=== PATIENT | female | born 1955 | race Caucasian/White ===

== ENCOUNTER 2019-10-04 11:20 | Outpatient (CLI) | payer MEDICARE, SELFPAY ==
[2019-10-04 11:50] LABS: Basophils Percent Auto 0.5 % (0.2-1.2); Eosinophils Absolute Auto 0.1 K/mm3 (0-0.3); Eosinophils Percent Auto 1.3 % (0-4.4); Hematocrit 36.1 % (37.0-47.0); Hemoglobin 12.1 g/dL (12.0-15.0); Immature Granulocyte Absolute 0.01 K/mm3 (0.00-0.031); Immature Granulocyte Percent A 0.2 % (0-0.5); Immature Platelet Fraction Pct 2.7 % (0.9-11.2); Lymphocytes Absolute Auto 2.73 K/mm3 (0.9-3.2); Lymphocytes Percent Auto 45.7 % (18.3-44.2); Mean Corpuscular HGB Conc 33.5 g/dl (32-36); Mean Corpuscular Hemoglobin 31.4 pg (26-34); Mean Corpuscular Volume 93.8 fl (80-100); Mean Platelet Volume 9.9 fl (7.4-10.4); Monocytes Absolute Auto 0.4 K/mm3 (0.1-0.6); Monocytes Percent Auto 6.5 % (2.6-8.5); Neutrophils Absolute Auto 2.7 K/mm3 (1.3-6.7); Neutrophils Percent Auto 45.8 % (45.5-73.1); Platelet Count Result 123 k/mm3 (150-375); Red Blood Count 3.85 M/mm3 (4.2-5.4); Red Cell Distribution Width 14.7 % (11.5-14.5)
[2019-10-04 12:26] LABS: Hemoglobin A1C 8.9 % (<5.7)
[2019-10-04 12:36] LABS: Total Triiodothyronine (T3) 1.19 NG/ML (0.97-1.69)
[2019-10-04 12:41] LABS: Alanine Aminotransferase 54 U/L (4-35); Albumin Level 4.1 g/dL (3.5-5.1); Alkaline Phosphatase 155 U/L (38-126); Amylase 56 U/L (30-110); Aspartate Amino Transferase 76 U/L (14-36); Bilirubin,Total 0.4 mg/dL (0.2-1.3); Blood Urea Nitrogen 11 mg/dL (7-17); Calcium 8.5 mg/dL (8.4-10.2); Carbon Dioxide 21 mmol/L (22-30); Chloride 104 mmol/L (98-107); Estimated Glomerular Filt Rate > 60; Glucose 455 mg/dL (65-105); Lipase 95 U/L (23-300); Sodium 136 mmol/L (137-145)
--- NOTE | 2019-10-04 13:02 | PC.NURSE ---
Called to outpatient draw station at 1200 today. Claims Coordinator reports that a patient has repeatedly fallen asleep while having her blood work drawn. I spoke with the patient. Lili Acosta (V#[id number]) Lili reports she drove herself to the hospital but agrees she is too sleepy to drive home. She reports she has restless leg syndrome and had run out her medication, causing her to be all night. She denies ingestion of any medications or alcohol. She awakens when her name is called but falls back to sleep. She oriented x 4, able to move all extremities. Her speech is clear and appropriate. She is agreeable for me to contact her , Travis Acosta @ to come to the hospital and drive her home. Travis Acosta contacted and agreed to come to hospital to drive his home.
[2019-10-04 13:49] LABS: Free T4 Free Thyroxine 0.89 ng/mL (0.78-2.19)
[2019-10-04 15:27] LABS: Vitamin D 25 Hydroxy < 12.8 ng/mL
== END 2019-10-04 11:21 | disposition home or self-care (01) ==
PROVIDERS: PCP Family Medicine; Visit Provider Nurse Practitioner Family
DX: R11.2 Nausea with vomiting, unspecified (principal); R19.7 Diarrhea, unspecified; R53.83 Other fatigue; E11.40 Type 2 diabetes mellitus with diabetic neuropathy, unspecified; E55.9 Vitamin D deficiency, unspecified; Z13.0 Encounter for screening for diseases of the blood and blood-forming organs and certain disorders involving the immune mechanism; Z13.6 Encounter for screening for cardiovascular disorders; Z13.29 Encounter for screening for other suspected endocrine disorder
CPT/HCPCS: 36415; 80053; 82150; 82306; 83036; 83690; 84439; 84443; 84480; 85025; 85055

== ENCOUNTER 2020-06-19 08:47 | Emergency (ER) | payer MEDICARE, SELFPAY ==
--- NOTE | ~2020-06-19 | XR_ITS ---
EXAMINATION: XR ankle LT min 3V EXAM DATE: 06/19/2020 11:21 INDICATION: pain, fell 2 months ago, generalized left ankle pain since then. TECHNIQUE: Left ankle frontal, lateral and oblique projections obtained and reviewed. Comparison is m melissa to prior examination from 12/17/2017. FINDINGS: The left ankle mortise appears intact. There is a fibular plate with supporting screws, intact. There is mild left ankle osteoarthritis, either primary or posttraumatic. No talar defect. Th ere are no bony erosions identified. There are no acute fractures identified. Small calcaneal spurs. IMPRESSION: 1. Mild left ankle osteoarthritis. 2. Intact fibular plate Reviewed, dictated and finalized at location A. EM SALES CONSULTANT
--- NOTE | ~2020-06-19 | XR_ITS ---
EXAMINATION: XR knee LT min 4V EXAM DATE: 06/19/2020 11:21 INDICATION: pain, fall X2 months ago, generalized left knee pain since then. TECHNIQUE: Left knee frontal, crosstable lateral, orthogonal oblique projections for interpretation. Comparison is made to prior examination from 03/19/2019. FINDINGS: No evidence osteochondral defect or joint body in the left knee joint. There are no pleur al effusions. There are no acute fractures or dislocations identified. There is no subcutaneous ga s. The soft tissue is unremarkable. There are no radiopaque foreign bodies. IMPRESSION: 1. Unremarkable left knee exam. Reviewed, dictated and finalized at location A. ORK CONTROL SUPERVISOR
--- NOTE | ~2020-06-19 | XR_ITS ---
EXAMINATION: XR hip LT min 3V w AP pelvis EXAM DATE: 06/19/2020 11:22 INDICATION: Fall X2 months, pelvic, left hip pain since then. TECHNIQUE: Left hip frontal, crosstable lateral and 'frog-leg' projections for interpretation. Fronta l projection pelvis. Comparison is made to prior examination from 09/03/2014. FINDINGS: Smooth left hip femoral head contour, no radiographic evidence of avascular necrosis. Ther e is mild left hip primary osteoarthritis. There are no acute pelvic or left hip fractures or disloca tions identified. There is no subcutaneous gas. The soft tissue is unremarkable. There are no rad iopaque foreign bodies. IMPRESSION: Mild left hip osteoarthritis. Reviewed, dictated and finalized at location A. ATIONS INSPECTOR
--- NOTE | ~2020-06-19 | XR_ITS ---
EXAMINATION: XR sacrum coccyx min 2V EXAM DATE: 06/19/2020 11:22 INDICATION: Sacrococcygeal pain. TECHNIQUE: Frontal, inlet, lateral projections of the sacrum and coccyx. There are no prior studies for comparison. FINDINGS: Sacrum, sacroiliac joints, sacral arcuate lines are intact. There is mild to moderate bila teral sacroiliac joint primary osteoarthritis. Pelvic calcification which could be a fibroid. There a re no acute fractures identified. IMPRESSION: 1. No acute sacrococcygeal findings. Reviewed, dictated and finalized at location A. OPONE CHARGER
--- NOTE | ~2020-06-19 | US_ITS ---
EXAMINATION: US venous doppler [facility] EXAM DATE: 06/19/2020 11:01 INDICATION: left leg pain, swelling left leg pain . TECHNIQUE: Multiple grayscale, color flow and Doppler images of the left lower extremity deep venous system were obtained and reviewed. Comparison is made to prior examination from 10/17/2018. FINDINGS: The left common femoral, femoral and profunda veins demonstrate normal color flow, respirat ory variation, augmentation and compressibility. Compressibility, color flow confirmed within the le ft popliteal, posterior tibial, and greater saphenous veins. Peroneal not well visualized. IMPRESSION: 1. No left lower extremity deep venous thrombosis. Reviewed, dictated and finalized at location A. MAKER
[2020-06-19 08:53] VITALS: BP 164/78; PULSE 95; RESP 15; TEMP 37; O2SAT 96
--- NOTE | 2020-06-19 08:55 | PC.NURSE ---
Pt. c/o restless leg syndrome and MD office not renewing prescription in time as presenting complaint at Intake, once in room added pain from a fall months ago as her c/o; pt. stated as she was walking from w/c to stretcher I cannot walk
[2020-06-19 10:33] VITALS: BP 161/71; PULSE 97; RESP 12; O2SAT 98
--- NOTE | 2020-06-19 10:41 | ED.EXTPRO ---
HPI - Extremity Problem General Chief complaint: Extremity Problem,Nontraumatic Stated complaint: restless leg syndrome/needs refill of med Time Seen by Provider: 06/19/20 10:16 Source: patient Mode of arrival: ambulatory Limitations: no limitations History of Present Illness HPI Narrative: This is a 64-year-old female that presents the emergency department for medication refill. Reports she has been out of her ropinirole for her restless leg syndrome. Reports she is unable to sit still. Reports pain especially in the left leg. Reports she also had a fall a couple of months ago which has worsened her left leg pain. Also reports pain in her sacrum/coccyx x-ray to the fall. Denies loss of consciousness. She did not see anybody after this accident. Reports she has an appointment to see her primary on Monday, but is out of her ropinirole in the meantime. Also reports swelling in the left leg which has been ongoing for months. Denies fever, decreased range of motion, or numbness. Related Data Home Medications Medication Instructions Recorded Confirmed clonazepam 1 mg PO DAILY 05/23/19 dulaglutide [Trulicity] 1.5 mg SUBCUT WEEKLY 05/23/19 glipizide 2.5 mg PO BID 05/23/19 metformin 500 mg PO BID 05/23/19 quetiapine [Seroquel XR] 400 mg PO HS 05/23/19 ropinirole [Requip] 0.25 mg PO BID 05/23/19 Allergies Allergy/AdvReac Type Severity Reaction Status Date / Time duloxetine Allergy Intermediate Hives Verified 05/23/19 13:08 aspirin Allergy Unknown DUE TO Verified 05/23/19 12:28 ASTHMA Review of Systems Review of Systems: Narrative: CONSTITUTIONAL: Denies fever SKIN: Denies rash MUSCULOSKELETAL: Reports back pain, joint pain, and myalgia. NEUROLOGIC: Denies numbness, or weakness. All systems reviewed & are unremarkable except as noted in HPI and below PMFSH Past Medical History Medical History (Updated 06/19/20 @ 12:13 by Connie Johnston PA-C) History of anxiety History of asthma History of coronary artery disease History of depression History of diabetes mellitus History of hypertension History of hypothyroidism Surgical History Surgical History (Updated 05/23/19 @ 16:07 by Connie Johnston PA-C) History of cardiac catheterization History of cholecystectomy History of hysterectomy History of inguinal hernia repair Family History Family History (Updated 09/02/16 @ 23:56 by DOCTOR UNKNOWN) Father Family history of premature coronary heart disease, Onset Age: 69 Patient's father is Mother Family history of malignant neoplasm of breast in first degree relative Social History Social History Second hand tobacco smoke exposure: Yes Alcohol intake: never Gender identity (if verbalized by the patient): Female Exam Narrative: Exam Narrative: GENERAL: Disheveled, well-nourished, and in no acute distress. HEAD: Normocephalic, atraumatic. EYES: PERRLA and EOMI. ENT: Nares clear, no rhinorrhea or epistaxis. Mucous membranes moist. Oropharynx without tonsillar hypertrophy exudate or other lesions. Bilateral TMs pearly carranza non-bulging NECK: Supple. No adenopathy or masses. No midline spinal tenderness CHEST: Clear to auscultation. No respiratory distress. No wheezes rales or rhonchi HEART: Regular rate and rhythm. No murmur heard. Normal peripheral pulses. BACK: No midline spinal tenderness EXTREMITIES: Normal range of motion. Mild edema with very mild redness to the left lower extremity. No erythema or warmth. Normal DP pulses. Strength is equal in the bilateral upper and lower extremities (5/5) SKIN: Warm, dry, no rash. NEURO: No focal deficits. Alert and oriented x3. Cranial nerves II through XII grossly intact PSYCH: Normal mood and affect Course Vital Signs Vital signs: Vital Signs Temperature 98.6 F 06/19/20 08:53 Pulse Rate 95 06/19/20 08:53 Respiratory Rate 15 06/19/20 08:53 Blood Pressure 164/78 H 06/19/20 08:53 Pulse Oximetry 96
[2020-06-19] MEDS: rOPINIRole HCL 1 MG TABLET PO (11:21)
[2020-06-19] MEDS: ACETAMINOPHEN 500 MG TABLET 1000 MG PO (11:21)
--- NOTE | 2020-06-19 11:24 | PC.NURSE ---
Pt. stated they could not ambulate very far. Watched Pt. ambulate from their bed to the nurses station and back to their bed without assistance. Pt. tolerated well.
[2020-06-19 12:29] VITALS: BP 149/75; PULSE 72; RESP 16; O2SAT 100
== END 2020-06-19 12:30 | disposition home or self-care (01) ==
PROVIDERS: Emergency Provider Emergency Medicine; PCP Family Medicine
DX: L03.116 Cellulitis of left lower limb (principal); G25.81 Restless legs syndrome; J45.909 Unspecified asthma, uncomplicated; I25.10 Atherosclerotic heart disease of native coronary artery without angina pectoris; E11.9 Type 2 diabetes mellitus without complications; I10 Essential (primary) hypertension; E03.9 Hypothyroidism, unspecified; F32.9 Major depressive disorder, single episode, unspecified; F41.9 Anxiety disorder, unspecified; Z79.84 Long term (current) use of oral hypoglycemic drugs; M19.072 Primary osteoarthritis, left ankle and foot; M16.12 Unilateral primary osteoarthritis, left hip; M79.605 Pain in left leg; W19.XXXA Unspecified fall, initial encounter
CPT/HCPCS: 72220; 73502; 73564; 73610; 93971; 99284; A9270

== ENCOUNTER 2020-09-07 13:57 | Emergency (ER) | payer MEDICARE, SELFPAY ==
[2020-09-07 14:37] VITALS: BP 138/66; RESP 16; TEMP 36.3; O2SAT 96
--- NOTE | 2020-09-07 20:50 | PC.NURSE ---
Called for pt to a room at 1999 and 2048 with no answer. PT presumably walked out.
== END 2020-09-07 21:07 | disposition left against medical advice (07) ==
PROVIDERS: PCP Family Medicine
DX: Z53.21 Procedure and treatment not carried out due to patient leaving prior to being seen by health care provider (principal)
CPT/HCPCS: 99199

== ENCOUNTER 2020-10-25 18:37 | Emergency (ER) | payer MEDICARE, SELFPAY ==
[2020-10-25 18:47] VITALS: BP 128/62; PULSE 95; RESP 18; TEMP 36.2; O2SAT 95
--- NOTE | 2020-10-25 18:50 | ECG_ITS ---
Measurements Intervals [place] Rate: 94 P: 33 SC: 136 QRS: 15 QRSD: 103 T: 46 QT: 373 QTc: 469 Interpretive Statements SINUS RHYTHM NONSPECIFIC ST & T-WAVE ABNORMALITY- HIGH LATERAL LEADS BASELINE WANDER- I, V2, V5 BORDERLINE ECG Electronically Signed On 10-25-2020 19:52:36 CDT by Albin Torres D.O.
[2020-10-25 19:07] LABS: Basophils Absolute Auto 0.1 K/mm3 (0.0-0.1); Basophils Percent Auto 0.5 % (0.2-1.2); Eosinophils Absolute Auto 0.1 K/mm3 (0-0.3); Eosinophils Percent Auto 0.7 % (0-4.4); Hematocrit 43.5 % (37.0-47.0); Immature Granulocyte Absolute 0.06 K/mm3 (0.00-0.031); Immature Granulocyte Percent A 0.5 % (0-0.5); Lymphocytes Absolute Auto 2.96 K/mm3 (0.9-3.2); Lymphocytes Percent Auto 26.9 % (18.3-44.2); Mean Corpuscular HGB Conc 34.5 g/dl (32-36); Mean Corpuscular Hemoglobin 29.6 pg (26-34); Mean Platelet Volume 9.1 fl (7.4-10.4); Monocytes Absolute Auto 0.6 K/mm3 (0.1-0.6); Monocytes Percent Auto 5.1 % (2.6-8.5); Neutrophils Absolute Auto 7.3 K/mm3 (1.3-6.7); Neutrophils Percent Auto 66.3 % (45.5-73.1); Platelet Count Result 146 k/mm3 (150-375); Red Blood Count 5.06 M/mm3 (4.2-5.4); Red Cell Distribution Width 13.8 % (11.5-14.5)
[2020-10-25 19:26] LABS: Alanine Aminotransferase 22 U/L (4-35); Albumin Level 4.5 g/dL (3.5-5.1); Alkaline Phosphatase 101 U/L (38-126); Anion Gap 13 mmol/L (8-16); Aspartate Amino Transferase 33 U/L (14-36); Bilirubin,Total 0.5 mg/dL (0.2-1.3); Blood Urea Nitrogen 14 mg/dL (7-17); Calcium 9.3 mg/dL (8.4-10.2); Carbon Dioxide 23 mmol/L (22-30); Chloride 107 mmol/L (98-107); Estimated Glomerular Filt Rate > 60; Glucose 249 mg/dL (65-105); Potassium 2.8 mmol/L (3.4-5.0); Sodium 143 mmol/L (137-145)
--- NOTE | 2020-10-25 19:26 | PC.NURSE ---
rn spoke with dr simpson - pt has critical low 2.[address] simpson it is ok to leave patient in waiting room at this time, not to bump her above the 4 ahead of her time donovan.
--- NOTE | 2020-10-25 19:33 | PC.NURSE ---
Patient comes to intake desk and states: I ain't sitting here no longer, ain't no way I am waiting until 12 o'clock I verified that patient was telling me that she is leaving the ED and does not want to be seen and she told me this was correct. Patient left the ED prior to being seen by a provider.
== END 2020-10-25 19:25 | disposition left against medical advice (07) ==
PROVIDERS: Emergency Provider Emergency Medicine; PCP Family Medicine
DX: R41.0 Disorientation, unspecified (principal)
CPT/HCPCS: 36415; 80053; 85025; 93005; 99199

== ENCOUNTER 2021-04-27 02:55 | Emergency (ER) | payer MEDICARE, SELFPAY ==
[2021-04-27 02:54] VITALS: BP 167/71; PULSE 86; RESP 16; TEMP 36.2; O2SAT 100
--- NOTE | 2021-04-27 03:29 | PC.NURSE ---
Pt to bathroom via wheelchair for urine sample collection. Pt unable to urinate at this time.
[2021-04-27] MEDS: LORazepam (*CRX) 1 MG TABLET PO (03:31)
[2021-04-27 03:32] VITALS: BP 132/81; PULSE 91; RESP 14; O2SAT 97
--- NOTE | 2021-04-27 03:38 | ED.GENADULT ---
HPI - General Adult General Chief complaint: Unspecified Stated complaint: pain all over for 30-40 days Time Seen by Provider: 04/27/21 03:05 History of Present Illness HPI narrative: Patient is a 65-year-old female presents the emergency department with chief complaint of pain all over and restless legs. Patient states that her primary doctor would not see her in the office because she owed $25 and would not do a telehealth visit. Patient states that she has been off of her medicines for some time reports that its been very stressful for her and she feels very anxious. Related Data Home Medications Medication Instructions Recorded Confirmed clonazepam 1 mg PO DAILY 05/23/19 dulaglutide [Trulicity] 1.5 mg SUBCUT WEEKLY 05/23/19 glipizide 2.5 mg PO BID 05/23/19 metformin 500 mg PO BID 05/23/19 quetiapine [Seroquel XR] 400 mg PO HS 05/23/19 ropinirole [Requip] 0.25 mg PO BID 05/23/19 Allergies Allergy/AdvReac Type Severity Reaction Status Date / Time duloxetine Allergy Intermediate Hives Verified 05/23/19 13:08 aspirin Allergy Unknown DUE TO Verified 05/23/19 12:28 ASTHMA Review of Systems Review of Systems: A 10 system review of systems was completed on the patient and is negative except for what is stated in the HPI. Nursing and ancillary documentation was reviewed. PENDING SALE TO [facility] Past Medical History Medical History History of anxiety History of asthma History of coronary artery disease History of depression History of diabetes mellitus History of hypertension History of hypothyroidism Surgical History Surgical History History of cardiac catheterization History of cholecystectomy History of hysterectomy History of inguinal hernia repair Family History Family History Father Family history of premature coronary heart disease, Onset Age: 69 Patient's father is Mother Family history of malignant neoplasm of breast in first degree relative Social History Social History Second hand tobacco smoke exposure: Yes Alcohol intake: never Gender identity (if verbalized by the patient): Female Exam Narrative: GENERAL: Well-appearing, well-nourished, and in no acute distress. HEAD: Normocephalic, atraumatic. EYES: PERRLA and EOMI. ENT: Nares clear, no rhinorrhea or epistaxis. Mucous membranes moist. NECK: Supple. CHEST: Clear to auscultation. No respiratory distress. HEART: Regular rate and rhythm. No murmur heard. Normal peripheral pulses. ABDOMEN: Soft, nontender, nondistended, normal active bowel sounds. EXTREMITIES: Normal range of motion. No edema. SKIN: Warm, dry, no rash. NEURO: No focal deficits. Alert and oriented x3. PSYCH: Normal mood and affect. Course Vital Signs Vital signs: Vital Signs Temperature 36.2 C L 04/27/21 02:54 Pulse Rate 86 04/27/21 02:54 Respiratory Rate 16 04/27/21 02:54 Blood Pressure 167/71 H 04/27/21 02:54 Pulse Oximetry 100 04/27/21 02:54 Temperature 36.2 C L 04/27/21 02:54 Pulse Rate 91 04/27/21 03:32 Respiratory Rate 14 04/27/21 03:32 Blood Pressure 132/81 04/27/21 03:32 Pulse Oximetry 97 04/27/21 03:32 Medical Decision Making Vital Signs Vital Signs: Vital Signs Temperature 36.2 C L 04/27/21 02:54 Pulse Rate 86 04/27/21 02:54 Respiratory Rate 16 04/27/21 02:54 Blood Pressure 167/71 H 04/27/21 02:54 Pulse Oximetry 100 04/27/21 02:54 Temperature 36.2 C L 04/27/21 02:54 Pulse Rate 91 04/27/21 03:32 Respiratory Rate 14 04/27/21 03:32 Blood Pressure 132/81 04/27/21 03:32 Pulse Oximetry 97 04/27/21 03:32 Lab Data Result diagrams: 04/27/21 04:28 04/27/21 04:28 Labs: Lab Results
[2021-04-27 04:44] LABS: Basophils Absolute Auto 0.1 K/mm3 (0.0-0.1); Basophils Percent Auto 0.6 % (0.2-1.2); Eosinophils Absolute Auto 0.2 K/mm3 (0-0.3); Eosinophils Percent Auto 1.6 % (0-4.4); Hematocrit 41.5 % (37.0-47.0); Hemoglobin 14.6 g/dL (12.0-15.0); Immature Granulocyte Absolute 0.04 K/mm3 (0.00-0.031); Immature Granulocyte Percent A 0.4 % (0-0.5); Lymphocytes Absolute Auto 4.39 K/mm3 (0.9-3.2); Lymphocytes Percent Auto 38.7 % (18.3-44.2); Mean Corpuscular HGB Conc 35.2 g/dl (32-36); Mean Corpuscular Hemoglobin 31.9 pg (26-34); Mean Corpuscular Volume 90.6 fl (80-100); Mean Platelet Volume 8.9 fl (7.4-10.4); Monocytes Absolute Auto 0.6 K/mm3 (0.1-0.6); Monocytes Percent Auto 5.6 % (2.6-8.5); Neutrophils Percent Auto 53.1 % (45.5-73.1); Platelet Count Result 214 k/mm3 (150-375); Red Blood Count 4.58 M/mm3 (4.2-5.4); Red Cell Distribution Width 13.6 % (11.5-14.5); White Blood Count 11.3 K/mm3 (4.5-10.0)
[2021-04-27 04:53] LABS: Alanine Aminotransferase 41 U/L (4-35); Albumin Level 4.7 g/dL (3.5-5.1); Alkaline Phosphatase 140 U/L (38-126); Anion Gap 13 mmol/L (8-16); Aspartate Amino Transferase 34 U/L (14-36); Bilirubin,Total 0.5 mg/dL (0.2-1.3); Blood Urea Nitrogen 11 mg/dL (7-17); Calcium 10.1 mg/dL (8.4-10.2); Carbon Dioxide 21 mmol/L (22-30); Chloride 106 mmol/L (98-107); Estimated CRCL calculation 98 ml/min; Estimated Glomerular Filt Rate > 60; Glucose 202 mg/dL (65-110); Magnesium 1.8 mg/dL (1.6-2.3); Sodium 140 mmol/L (137-145)
--- NOTE | 2021-04-27 05:18 | PC.NURSE ---
pt ambulatory with steady gait and no assist to bathroom
[2021-04-27] MEDS: rOPINIRole HCL 0.25 MG TABLET PO (05:30)
[2021-04-27 05:39] VITALS: BP 170/74; PULSE 88; RESP 18; O2SAT 99
--- NOTE | 2021-04-27 05:40 | PC.NURSE ---
pt states as i was wheeling her to waiting room that she does not have a ride. I stated I will call her and ask him to come and pick her up. She stated do NOT call my I will call him and have him come and get me .
--- NOTE | 2021-04-27 06:15 | PC.NURSE ---
Called pts spouse for brick picker. no answer
== END 2021-04-27 05:40 | disposition home or self-care (01) ==
PROVIDERS: Emergency Provider Emergency Medicine
DX: G89.4 Chronic pain syndrome (principal); G25.81 Restless legs syndrome; F41.9 Anxiety disorder, unspecified; J45.909 Unspecified asthma, uncomplicated; I25.10 Atherosclerotic heart disease of native coronary artery without angina pectoris; F32.9 Major depressive disorder, single episode, unspecified; E11.9 Type 2 diabetes mellitus without complications; Z79.84 Long term (current) use of oral hypoglycemic drugs; I10 Essential (primary) hypertension; E03.9 Hypothyroidism, unspecified
CPT/HCPCS: 36415; 80053; 83735; 85025; 99283; A9270

== ENCOUNTER 2022-01-29 07:46 | Inpatient (IN) | payer MEDICARE, MEDICAID, SELFPAY ==
[2022-01-29] VITALS (24 sets, daily range): BP systolic 105–159; BP diastolic 42–73; PULSE 57–124; RESP 11–27; TEMP 36.3–36.9; O2SAT 96–99; BMI 26.9
--- NOTE | ~2022-01-29 | XR_ITS ---
EXAM: XR forearm LT 2V, XR humerus LT DATE: 01/29/2022 15:32 HISTORY: Fall, left side weakness . COMPARISON: None available. FINDINGS: Decreased mineralization. No fracture or dislocation. No lytic or blastic lesion. Joint sp aces and physes are maintained. No erosion or periosteal change. Soft tissues within normal limits. IMPRESSION: No acute osseous finding in the left humerus or left forearm. Reviewed, dictated and finalized at location K. IMPRESSION: No acute osseous finding in the left humerus or left forearm.
--- NOTE | ~2022-01-29 | CT_ITS ---
EXAMINATION: CT brain wo con DATE: 01/29/2022 08:47 INDICATION: Left-sided weakness TECHNIQUE: Computed tomography (CT) of the head was performed without intravenous contrast. Sagittal and coronal reconstructions were performed. The mA was adjusted according to patient size. Iterative reconstruction technique was employed. The dose-length product was 529.67 mGy-cm. COMPARISON: head CT dated 04/08/17 FINDINGS: No acute intracranial hemorrhage, acute infarction or abnormal extra axial fluid collection. There is mild scattered white matter hypoattenuation consistent with chronic small vessel ischemic disease. I ncreased prominence of the subarachnoid spaces overlying the convexities consistent with mild age-pretty ropriate diffuse volume loss. Ventricles are normal and symmetric. No mass/mass effect. The orbits, p aranasal sinuses and mastoid air cells are normal. IMPRESSION: 1. No acute intracranial process. 2. Age-related changes including mild diffuse volume loss and mild scattered white matter hypoattenua tion consistent with chronic small vessel ischemic disease. Reviewed, dictated and finalized at location A. IMPRESSION: 1. No acute intracranial process. 2. Age-related changes including mild diffuse volume loss and mild scattered wh ite matter hypoattenuation consistent with chronic small vessel ischemic diseas e.
--- NOTE | ~2022-01-29 | MR_ITS ---
EXAMINATION: MR brain/brain stem wo con DATE: 01/30/2022 14:53 INDICATION: left sided weakness TECHNIQUE: Magnetic resonance imaging (MRI) of the brain and brainstem was performed without intraven ous contrast. Sequences included sagittal and axial T1-weighted SE, axial diffusion-weighted FS EPI A SSET, axial T2*-weighted GRE, axial T2-weighted FLAIR Propeller, and axial T2-weighted Propeller. Rochelle arent diffusion coefficient (ADC) maps were created. COMPARISON: CT brain and CTA brain carotid 01/29/22. FINDINGS: No abnormal restricted diffusion to suggest acute ischemic infarct. No MRI evidence of hemorrhage or extra-axial collection. No suspicious foci of susceptibility to suggest prior intraparenchymal hemorr clifford. Mild scattered patchy white matter hyperintensities likely related to chronic small vessel isch emic disease. Mild generalized parenchymal volume loss. Flow voids are preserved. Basilar cisterns ar e patent. Orbits are within normal limits. Mucosal thickening in the ethmoid air cells. IMPRESSION: No acute intracranial process detected. Reviewed, dictated and finalized at location K.
--- NOTE | ~2022-01-29 | US_ITS ---
EXAMINATION: US abdomen limited DATE: 01/30/2022 09:17 INDICATION: Hyperammonemia. Thrombocytopenia. TECHNIQUE: Multiple grayscale and Doppler ultrasound images of the abdomen were obtained. COMPARISON: CT abdomen and pelvis 05/23/2019 FINDINGS: The visualized portions of the head and body of the pancreas are normal. There is mild sple nomegaly measuring 14.4 cm. There is diffuse hepatic steatosis. No liver surface nodularity. There is normal flow in main portal vein. The gallbladder is absent. The common duct is normal and measures 6 mm. IMPRESSION: 1. Diffuse hepatic steatosis. 2. Chronic mild splenomegaly. Reviewed, dictated and finalized at location A.
--- NOTE | ~2022-01-29 | XR_ITS ---
EXAMINATION: XR chest 1V portable DATE: 01/29/2022 08:16 INDICATION: Left-sided weakness TECHNIQUE: frontal view of the chest was obtained. COMPARISON: Chest radiograph dated 05/23/[address] dated 12/12/2018 FINDINGS: Chronic subtle opacity left lower lung zone corresponding to mild lingular atelectasis/scarring and s mall amount of pericardial fat extending along the inferomedial aspect of the major fissure. No other airspace opacities, pulmonary edema, pleural effusion or pneumothorax. The cardiomediastinal silhoue tte is normal. Mild scattered degenerative skeletal changes. IMPRESSION: 1. No acute cardiopulmonary disease. Reviewed, dictated and finalized at location A.
--- NOTE | ~2022-01-29 | CT_ITS ---
EXAMINATION: CTA BRAIN/CAROTID DATE: 01/29/2022 10:32 INDICATION: Left-sided hemiparesis TECHNIQUE: Computed tomographic angiography (CTA) of the head and neck was performed with 100 mL Omni paque-350 intravenous contrast. Multiplanar reconstructions and maximum intensity projection 3D-recon structions of the carotid arteries and of the intracranial arteries were created by the technologist on a separate workstation. Automated exposure control and iterative reconstruction technique were emp loyed.The dose-length product was 1151.32 mGy-cm. COMPARISON: None. FINDINGS: Carotid arteries: Visualized thoracic aorta is normal in caliber with no dissection. Atherosclerotic coronary artery ca lcifications. Aortic valve calcification. There is no evident atherosclerotic plaque with 0% stenosis of the right carotid bulb relative to normal distal artery lumen diameter (NASCET criteria). There i s a small amount of atherosclerotic with 10% stenosis of the left carotid bulb relative to normal dis diandra artery lumen diameter. Cervical soft tissues are unremarkable. The bilateral mid and upper lung z ones are clear. Moderate cervical spondylosis. T2 and T6 hemangiomas. Intracranial arteries There is no hemodynamically significant stenosis in the vertebral, basilar and internal carotid arter ies. Vertebral arteries are codominant. There are no aneurysms identified. Both A1 and P1 segments a re patent. Cerebral arterial arborization appears symmetric. No abnormally enhancing brain lesions. IMPRESSION: 1. 0% stenosis of the right carotid bulb relative to normal distal artery lumen diameter (NASCET crit eria). 2. 10% stenosis of the left carotid bulb relative to normal distal artery lumen diameter. 3. Unremarkable cerebral CT angiogram. Reviewed, dictated and finalized at location A. IMPRESSION: 1. 0% stenosis of the right carotid bulb relative to normal distal artery lumen diameter (NASCET criteria). 2. 10% stenosis of the left carotid bulb relative to normal distal artery lumen diameter. 3. Unremarkable cerebral CT angiogram.
--- NOTE | 2022-01-29 07:53 | ECG_ITS ---
Measurements Intervals [place] Rate: 69 P: [place]: 0 QRS: 46 QRSD: 109 T: 30 QT: 282 QTc: 303 Interpretive Statements SINUS RHYTHM NON-CONDUCTED ATRIAL PREMATURE COMPLEXES NONSPECIFIC ST & T-WAVE ABNORMALITY- DIFFUSE LEADS BASELINE ARTIFACT- I, II, III, AVR, AVL, AVF BORDERLINE ECG COMPARED TO ECG 10/25/2020 18:53:51 NON-CONDUCTED ATRIAL PREMATURE COMPLEXES NOW PRESENT Electronically Signed On 01-29-2022 8:32:59 CDT by Albin Torres D.O.
--- NOTE | 2022-01-29 08:05 | ED.WEAKNESS ---
HPI - Weakness General Chief complaint: Weakness Stated complaint: LT sided weakness x 4 days, CP Time Seen by Provider: 01/29/22 07:50 Source: RN notes reviewed History of Present Illness HPI Narrative: Patient presents emergency department from home for left-sided weakness. Patient states symptoms began on Monday of this week which was January 24. She states that she was weak in both of her left arm and her left leg and secondary to that she has been having trouble walking states that her folding machine feeder strength is very weak in her left hand as well patient also states that starting last night she has developed midsternal chest pain that is described as a pressure she denies any fevers or chills shortness of breath abdominal pain or any other symptoms states she does feel numbness on the left side of her body Related Data Home Medications Medication Instructions Recorded Confirmed No Home Medications 01/29/22 01/29/22 Allergies Allergy/AdvReac Type Severity Reaction Status Date / Time No Known Allergies Allergy Verified 01/29/22 08:13 Review of Systems Review of Systems: Gen.: Denies fevers or chills Eyes: Denies eye pain or visual change ENT: Denies congestion Respiratory: Denies shortness of breath or cough CV: Reports chest pain GI: Denies abdominal pain nausea, emesis or diarrhea Musculoskeletal: Denies back pain or muscle pain Neuro: See HPI Skin: Denies rash Except as documented, all other systems reviewed and negative [facility] Past Medical History Medical History History of anxiety History of asthma History of coronary artery disease History of depression History of diabetes mellitus History of hypertension History of hypothyroidism Surgical History Surgical History History of cardiac catheterization History of cholecystectomy History of hysterectomy History of inguinal hernia repair Family History Family History Father Family history of premature coronary heart disease, Onset Age: 69 Patient's father is Mother Family history of malignant neoplasm of breast in first degree relative Social History Social History Second hand tobacco smoke exposure: Yes Alcohol intake: never Gender identity (if verbalized by the patient): Female Exam Narrative: APPEARANCE: No acute distress, nontoxic, resting in bed HEENT: Normocephalic, atraumatic, OMM, TMs clear bilaterally EYES: PERRL, EOMI RESPIRATORY: No respiratory distress, clear to auscultation bilaterally with no rhonchi wheezing or rales CARDIOVASCULAR: RRR s murmur ABDOMINAL: Soft, nontender, nondistended MUSCULOSKELETAL: Moves all extremities. No clubbing, cyanosis or edema. NEURO: A and O ?3, following commands, speech normal, left-sided facial droop, muscle strength 5 out of 5 in the right upper and lower extremity muscle strength 4 out of 5 in the left upper and lower extremities no pronator drift SKIN:: Warm, dry. Normal Color PSYCHIATRIC: Normal affect/mood Course Course Emergency Course: Patient with last known normal over 72 hours ago no tPA candidate Called discussed with Dr. Torres and reviewed the patient's EKGs after review of the patient's EKGs are consistent with nonconducting PACs but no evidence of of type II heart block Discussed with Dr. Don agrees with admission request consult with neurology Discussed with Dr. Chris request CTA of the brain Discussed with patient and family results of workup and diagnosis. Discussed need for admission. Patient and family understand and agree to current treatment plan Vital Signs Vital signs: Vital Signs Temperature 97.5 F L 01/29/22 07:51 Pulse Rate 88 01/29/22 07:51 Respiratory Rate 18 01/29/22 07:51 Blood Pressure 159/73 H
[2022-01-29 08:17] LABS: Glucose Point of Care 254 mg/dl (65-105)
[2022-01-29 08:20] LABS: Basophils Absolute Auto 0.1 K/mm3 (0.0-0.1); Basophils Percent Auto 0.6 % (0.2-1.2); Eosinophils Absolute Auto 0.3 K/mm3 (0-0.3); Eosinophils Percent Auto 2.5 % (0-4.4); Hemoglobin 14.2 g/dL (12.0-15.0); Immature Granulocyte Absolute 0.03 K/mm3 (0.00-0.031); Immature Granulocyte Percent A 0.2 % (0-0.5); Lymphocytes Percent Auto 39.5 % (18.3-44.2); Mean Corpuscular HGB Conc 35.5 g/dl (32-36); Mean Corpuscular Hemoglobin 30.7 pg (26-34); Mean Corpuscular Volume 86.4 fl (80-100); Mean Platelet Volume 9.7 fl (7.4-10.4); Monocytes Absolute Auto 0.9 K/mm3 (0.1-0.6); Monocytes Percent Auto 7.3 % (2.6-8.5); Neutrophils Absolute Auto 6.3 K/mm3 (1.3-6.7); Neutrophils Percent Auto 49.9 % (45.5-73.1); Platelet Count Result 159 k/mm3 (150-375); Red Blood Count 4.63 M/mm3 (4.2-5.4); Red Cell Distribution Width 13.3 % (11.5-14.5); White Blood Count 12.7 K/mm3 (4.5-10.0)
[2022-01-29 08:34] LABS: Alanine Aminotransferase 22 U/L (6-35); Albumin Level 3.8 g/dL (3.5-5.1); Alkaline Phosphatase 71 U/L (38-126); Anion Gap 11 mmol/L (8-16); Aspartate Amino Transferase 23 U/L (14-36); Bilirubin,Total 0.3 mg/dL (0.2-1.3); Blood Urea Nitrogen 10 mg/dL (7-17); Calcium 9.1 mg/dL (8.4-10.2); Carbon Dioxide 25 mmol/L (22-30); Chloride 110 mmol/L (98-107); Estimated CRCL calculation 81 ml/min; Estimated Glomerular Filt Rate > 60; Glucose 245 mg/dL (65-110); Sodium 146 mmol/L (137-145)
--- NOTE | 2022-01-29 08:37 | ECG_ITS ---
Measurements Intervals [place] Rate: 59 P: [place]: 0 QRS: 43 QRSD: 94 T: 52 QT: 387 QTc: 386 Interpretive Statements SINUS RHYTHM NON-CONDUCTED ATRIAL PREMATURE COMPLEXES BORDERLINE ST-T WAVE ABNORMALITY- ANTEROLAT/HIGH LAT LEADS BASELINE ARTIFACT- I, II, AVR, AVL, AVF COMPARED TO ECG 01/29/2022 08:00:30 NO SIGNIFICANT CHANGES Electronically Signed On 01-29-2022 9:15:15 CDT by Albin Torres D.O.
[2022-01-29 08:44] LABS: Troponin I < 0.012 ng/mL (0.000-0.034)
[2022-01-29 08:50] LABS: INR 1.1; Partial Thromboplastin Time 23.7 SECONDS (22.3-36.8); Prothrombin Time 13.6 Seconds (11.1-14.7)
[2022-01-29] MEDS: POTASSIUM CHLORIDE INJ 40 MEQ in SODIUM CHLORIDE 0.9% IV 500 ML 130 MEQ IVPB ×2 (09:01→22:45)
[2022-01-29] MEDS: POTASSIUM CHLORIDE 20 MEQ TABLET 40 MEQ PO (09:01)
[2022-01-29 09:04] LABS: Magnesium 1.3 mg/dL (1.6-2.3)
[2022-01-29] MEDS: MAGNESIUM SULF 2 GM/WATER 50ML 2 GM/50 ML BAG IVPB (09:16)
[2022-01-29 09:29] LABS: SARS-CoV-2 RNA PCR Negative
[2022-01-29] MEDS: ASPIRIN 81 MG CHEWABLE TABLET 324 MG PO (09:32)
[2022-01-29] MEDS: ACETAMINOPHEN 500 MG TABLET 1000 MG PO (09:32)
--- NOTE | 2022-01-29 11:56 | PC.NURSE ---
ordered lunch for patient
[2022-01-29 12:35] LABS: Troponin I < 0.012 ng/mL (0.000-0.034)
--- NOTE | 2022-01-29 13:08 | ADMGEN ---
This patient, Lili Acosta, was admitted to IMU Room 206-02. Patient/family oriented to hospital policies and general routines including ID bracelet, bed and alarms, visiting hours, pain management, procedures, bathroom and other care routines, personal items, smoking policy, room service/diet, and visiting hours. Information on how to activate the Rapid Response Team has been discussed. Patient/Family are encouraged to report perceived risks to care and to ask questions if they do not understand what they are told or what they should do.
[2022-01-29 13:09] LABS: Glucose Point of Care 135 mg/dl (65-105)
--- NOTE | 2022-01-29 14:18 | PM.IMHP ---
H&P: HPI History of Present Illness Date/Time: 01/29/22 14:18 Chief Complaint: Numbness of extremities Narrative: Date of service: 01/29/2022 Lili Acosta is a 66-year-old female with a history of anxiety, asthma, CAD, depression, diabetes mellitus, hypertension, hypothyroidism, and restless leg syndrome who has not taken any medications for her chronic illnesses in >1 year as she has not been seen by a doctor in nearly 2 years. She presented to the emergency department on 01/29/2022 with complaints of left-sided numbness. The patient begins by telling me ?I do not know where to start.? She then goes on to say that her bedroom is upstairs in her home and for the past 6 months she has been having a hard time getting up the stairs to her bedroom. She digresses to state that she has been going downstairs in the morning and bringing up enough food to last her throughout the day. She then tries to bring it down at the end of the day but she has a hard time navigating the stairs so food and other clutter has been piling up and her house is now in disarray. She interrupts the interview to look outside the window and state that it is raining. When asked again what brought her into the hospital, she states that about 4-5 months ago she developed balance issues and had significant difficulty walking. She got to a point where she was climbing the stairs on all fours and having difficulty getting herself out of bed. She digresses again to state that she has not had a bath in over 2 weeks because her 's dog goes into the bathtub and it is dirty with paw prints and she is not able to clean it due to her disability. When asked what disability she has, she states that she went on disability in 2004 and because it was so long ago, she cannot remember the exact cause. She then states that she developed heart racing, shortness of breath, and sweating but cannot provide a timeline of when these symptoms occurred. She states that her left foot and leg became numb. She states this was originally a gradual onset over the course of 1 week and has now become more severe. She again is not able to provide an exact timeline of these symptoms. Because of the numbness in her left leg, she states she had been using her left arm more until all of a sudden her arm ?went .? Of note, she is able to use both of her arms during my encounter and is able to operate her cellphone and the TV remote. She then goes on to state that she had a fall last night where she fell on to her left arm. She now has pain in the left arm. She did not hit her head when she fell. In the ED, her vital signs were stable, she was afebrile, WBC 12.7, potassium 2.0, serum glucose 245, magnesium 1.3, troponin negative, CXR with no acute findings, head CT with no acute finding, head/neck CTA with 0% stenosis of the right carotid bulb and 10% stenosis of the left carotid bulb. She is being admitted for observation to the hospitalist service. Supervising physician for this history and physical is Dr. Ashvin Rock. Review of Systems Review of Systems: All systems reviewed with pertinent positives and negatives as per HPI. Additionally, patient endorses confusion. States she has chronic dizziness and lightheadedness. Reports urinary incontinence. Unable to indicate dysuria or hematuria. Denies diarrhea. Reports regular bowel movements every 1-2 days. Denies shortness of breath, cough, chest pain. Denies speech changes. Denies dysphagia. States she does eat and drink regularly and drinks Gatorade quite often. [facility] Past Medical History Medical History (Updated 01/29/22 @ 14:54 by Ronda Jain PA-C) History of anxiety History of asthma History of coronary artery disease History of depression History of diabetes mellitus History of hypertension History of hypothyroidism RLS (restless legs syndrome) Surgical History Surgical History (Reviewed 01/29/22 @ 14:42 by Ronda
[2022-01-29 14:23] LABS: Magnesium 2.1 mg/dL (1.6-2.3); Potassium 2.6 mmol/L (3.4-5.0)
[2022-01-29] MEDS: POTASSIUM CHLORIDE 20 MEQ TABLET 60 MEQ PO (15:32)
[2022-01-29 15:54] LABS: Ammonia 58 umol/L (9-30)
[2022-01-29 16:06] LABS: Troponin I < 0.012 ng/mL (0.000-0.034)
[2022-01-29 16:35] LABS: Glucose Point of Care 167 mg/dl (65-105)
[2022-01-29 16:53] LABS: Hemoglobin A1C 6.6 % (<5.7)
[2022-01-29 17:00] LABS: Folic Acid 19.7 ng/mL (2.76->20)
[2022-01-29 20:16] LABS: Glucose Point of Care 200 mg/dl (65-105)
[2022-01-29 21:38] LABS: Potassium 2.7 mmol/L (3.4-5.0)
[2022-01-29] MEDS: POTASSIUM CHLORIDE 20 MEQ PACKET (FOR LIQUID) 40 MEQ PO (22:45)
[2022-01-29 23:05] LABS: Appearance Urine Clear (Clear); Bilirubin Urine Negative (Negative); Blood Urine Negative (Negative); Color Urine Yellow (Yellow); Glucose Urine UA Negative (Negative); Ketones Urine Negative (Negative); Leukocyte Esterase Ur Negative LEU/UL (Negative); Nitrate Urine Negative (Negative); Protein Urine Negative (Negative); Specific Grav Ur 1.015 (1.001-1.035); Urobilinogen Urine 0.2 mg/dL (<2.0); pH Urine 6.5 (5.0-9.0)
[2022-01-29 23:10] LABS: Add Urine Microscopic? NO
[2022-01-30] VITALS (13 sets, daily range): BP systolic 108–155; BP diastolic 47–74; PULSE 53–85; RESP 16–22; TEMP 36.1–36.8; O2SAT 96–100
[2022-01-30 04:38] LABS: Basophils Absolute Auto 0.1 K/mm3 (0.0-0.1); Basophils Percent Auto 0.6 % (0.2-1.2); Eosinophils Absolute Auto 0.3 K/mm3 (0-0.3); Eosinophils Percent Auto 3.4 % (0-4.4); Hematocrit 35.2 % (37.0-47.0); Hemoglobin 12.2 g/dL (12.0-15.0); Immature Granulocyte Absolute 0.02 K/mm3 (0.00-0.031); Immature Granulocyte Percent A 0.2 % (0-0.5); Immature Platelet Fraction Pct 3.4 % (0.9-11.2); Lymphocytes Absolute Auto 4.57 K/mm3 (0.9-3.2); Lymphocytes Percent Auto 50.8 % (18.3-44.2); Mean Corpuscular HGB Conc 34.7 g/dl (32-36); Mean Corpuscular Hemoglobin 30.7 pg (26-34); Mean Corpuscular Volume 88.4 fl (80-100); Mean Platelet Volume 9.8 fl (7.4-10.4); Monocytes Absolute Auto 0.6 K/mm3 (0.1-0.6); Monocytes Percent Auto 6.1 % (2.6-8.5); Neutrophils Absolute Auto 3.5 K/mm3 (1.3-6.7); Neutrophils Percent Auto 38.9 % (45.5-73.1); Platelet Count Result 128 k/mm3 (150-375); Red Blood Count 3.98 M/mm3 (4.2-5.4); Red Cell Distribution Width 13.3 % (11.5-14.5)
[2022-01-30 04:47] LABS: Alanine Aminotransferase 20 U/L (6-35); Albumin Level 3.5 g/dL (3.5-5.1); Alkaline Phosphatase 68 U/L (38-126); Anion Gap 13 mmol/L (8-16); Aspartate Amino Transferase 25 U/L (14-36); Bilirubin,Total 0.3 mg/dL (0.2-1.3); Blood Urea Nitrogen 10 mg/dL (7-17); Calcium 7.9 mg/dL (8.4-10.2); Carbon Dioxide 25 mmol/L (22-30); Chloride 108 mmol/L (98-107); Estimated CRCL calculation 84 ml/min; Estimated Glomerular Filt Rate > 60; Glucose 136 mg/dL (65-110); Potassium 3.1 mmol/L (3.4-5.0); Sodium 146 mmol/L (137-145)
[2022-01-30 06:54] LABS: Magnesium 1.5 mg/dL (1.6-2.3)
[2022-01-30 08:32] LABS: Glucose Point of Care 159 mg/dl (65-105)
--- NOTE | 2022-01-30 08:38 | WPDNEURCNPN ---
Assessment and Plan Assessment and plan (1) Acute left-sided muscle weakness: Code(s): M62.81 - Muscle weakness (generalized) Status: Acute Assessment and Plan: Lili Acosta is a 66 year old female with a history of anxiety, asthma, CAD, depression, HTN, hypothyroidism, RLS who presented yesterday due to a 5 day history of left sided weakness and numbness. Concern for possibly right lacunar stroke. Exam today only showed left hemisensory loss (possible thalamic lesion?) - MRI brain w/o contrast - Surface echo - Start ASA 81mg - Lipid profile, HgA1c - Will likely need a statin on discharge Consult date: 01/30/22 Time Seen: 08:38 Reason for consult: concern for stroke HPI: Lili Acosta is a 66 year old female with a history of anxiety, asthma, CAD, depression, HTN, hypothyroidism, RLS who presented yesterday due to a 5 day history of left sided weakness and numbness. The weakness started gradually in her left foot and then spread to her left hand. Now she feels that it is spreading to her right hand. She was also having difficulty walking and chest pain. She reports blurry vision and tinnitus and also feeling out of her body .Based on chart review it seems that the symptoms started in her left leg prior to her left arm. She did have a fall last night where she fell on her left arm which she is now complaining about pain. She was taken to the ED for further evaluation. CT head was negative. CTA showed only 10% stenosis of the left carotid bulb. Her NIH score was 3 but she was outside the window for tPA. Her labs were significant for leukocytosis WBC 12.7 and hypokalemia 2.0. Today she feels that her left side is still numb and weak. Review of Systems Constitutional: Constitutional: Reports weakness Eyes: Eyes: Reports blurry vision ENT: Reports Normal hearing present, Reports dysphagia and Reports tinnitus Comments: history of hiatal hernia Cardiovascular: Cardiovascular: Reports chest pain Respiratory: Respiratory: Denies dyspnea Gastrointestinal: Gastrointestinal: Reports no additional gastrointestinal complaints Genitourinary: Genitourinary: Reports no additional female genitourinary complaints Musculoskeletal: Musculoskeletal: Reports no additional musculoskeletal complaints Integumentary/Breasts: Skin/Breast: Reports system reviewed and no additional complaints, except as docu Neurologic: Reports as per HPI Psychiatric: Psychiatric: Reports anxiety PMFSH Past Medical History Medical History History of anxiety History of asthma History of coronary artery disease History of depression History of diabetes mellitus History of hypertension History of hypothyroidism RLS (restless legs syndrome) Surgical History Surgical History History of cardiac catheterization History of cholecystectomy History of hysterectomy History of inguinal hernia repair Family History Family History Father Family history of premature coronary heart disease, Onset Age: 69 Patient's father is Mother Family history of malignant neoplasm of breast in first degree relative Social History Social History Social History: Lives at home with . On disability. No longer drives and does not leave the home. Designates , Ant, as surrogate decision maker. Full code. Not established with PCP. Smoking packs per day: 1 Smoking cigarettes per day: 20.0 Years smoked: 30 Smoking pack-years: 30.00 Smoking status: Current every day smoker Tobacco type: cigarettes Alcohol intake: never Substance use type: does not use Spiritual care concerns: No Meds Home Medications and Allergies Home Medications Medication Instructions Recorded Confirmed Type No Ho
[2022-01-30] MEDS: CYANOCOBALAMIN 1,000 MCG TABLET 1000 MCG PO (10:09)
[2022-01-30] MEDS: MAGNESIUM SULF 1 GM/D5W 100 ML 1 GM/100 ML BAG IVPB (10:09)
[2022-01-30] MEDS: MAGNESIUM OXIDE 400 MG TABLET PO (10:09)
[2022-01-30] MEDS: POTASSIUM CHLORIDE 20 MEQ TABLET 40 MEQ PO (10:09)
[2022-01-30 12:34] LABS: Glucose Point of Care 171 mg/dl (65-105)
--- NOTE | 2022-01-30 13:37 | P.PNIM_ITS ---
Progress Note: A&P Assessment and Plan (1) Acute hypokalemia: Code(s): E87.6 - Hypokalemia Status: Acute Assessment and Plan: Potassium 2.0 on admission * Etiology unclear. No nausea, vomiting, diarrhea, medications, alcohol abuse * Improved with supplementation. * Potassium 3.1 today. * Begin scheduled potassium supplementation b.i.d. * Monitor on telemetry. Patient is in sinus rhythm. * Monitor BMP (2) Hypomagnesemia: Code(s): E83.42 - Hypomagnesemia Status: Acute Assessment and Plan: Magnesium 1.3 on presentation * Improved with supplementation * 1.5 today. Administer 1 g IV magnesium sulfate and then begin scheduled p.o. magnesium oxide (3) Acute left-sided muscle weakness: Code(s): M62.81 - Muscle weakness (generalized) Status: Acute Assessment and Plan: Questionable history. Neurologic vs psychogenic vs injury related. * No acute findings on head CT or CTA of the head and neck * Appreciate neurology consultation * Proceed with MRI of the brain, echo with bubble study, lipid panel per Neurology recommendations * No evidence of injury on arm radiographs. (4) Fall: Code(s): W19.XXXA - Unspecified fall, initial encounter Status: Acute Assessment and Plan: Patient endorses fall at home 1 day prior to presentation in which she fell on to the left upper extremity. Did not hit her head or lose consciousness * Fall precautions * Left forearm and humerus x-ray unremarkable (5) Noncompliance: Code(s): Z91.19 - Patient's noncompliance with other medical treatment and regimen Status: Acute Assessment and Plan: Patient has not taken any medications in over 1 year despite several chronic illnesses. She has not seen a doctor in 2 years * Question patient's ability to care for herself independently at home * She will be referred to the on-call primary care physician on discharge * Care coordination has provided a list of primary care provider (6) Diabetes mellitus: Code(s): E11.9 - Type 2 diabetes mellitus without complications Status: Acute Assessment and Plan: A1c is 6.6. This is better than anticipated given no medications in 2 years. Press patient is diet controlled. Blood sugars have been well controlled today * Accu-Cheks, sliding scale insulin, hypoglycemic protocol * Monitor glucose trends and adjust insulin regimen as needed (7) Hypothyroidism: Code(s): E03.9 - Hypothyroidism, unspecified Status: Acute Assessment and Plan: Patient reports history of hypothyroidism but is not taking any medication * TSH evaluated and is within normal limits at 1.3. No further evaluation needed (8) Leukocytosis: Code(s): D72.829 - Elevated white blood cell count, unspecified Status: Acute Assessment and Plan: Resolved. * Likely reactive * WBC 9.0 today (9) Vitamin B12 deficiency: Code(s): E53.8 - Deficiency of other specified B group vitamins Status: Acute Assessment and Plan: B12 level is low. This may be contributing to patient's complaints of numbness in extremities * Begin cyanocobalamin supplementation (10) Hyperammonemia: Code(s): E72.20 - Disorder of urea cycle metabolism, unspecified Status: Acute Assessment and Plan: Ammonia level noted to be slightly elevated * Right upper quadrant ultrasound completed today for evaluation of possible cirrhosis. Revealed diffus
--- NOTE | 2022-01-30 13:37 | PM.IMPN ---
Progress Note: A&P Assessment and Plan (1) Acute hypokalemia: Code(s): E87.6 - Hypokalemia Status: Acute Assessment and Plan: Potassium 2.0 on admission Etiology unclear. No nausea, vomiting, diarrhea, medications, alcohol abuse Improved with supplementation. Potassium 3.1 today. Begin scheduled potassium supplementation b.i.d. Monitor on telemetry. Patient is in sinus rhythm. Monitor BMP (2) Hypomagnesemia: Code(s): E83.42 - Hypomagnesemia Status: Acute Assessment and Plan: Magnesium 1.3 on presentation Improved with supplementation 1.5 today. Administer 1 g IV magnesium sulfate and then begin scheduled p.o. magnesium oxide (3) Acute left-sided muscle weakness: Code(s): M62.81 - Muscle weakness (generalized) Status: Acute Assessment and Plan: Questionable history. Neurologic vs psychogenic vs injury related. No acute findings on head CT or CTA of the head and neck Appreciate neurology consultation Proceed with MRI of the brain, echo with bubble study, lipid panel per Neurology recommendations No evidence of injury on arm radiographs. (4) Fall: Code(s): W19.XXXA - Unspecified fall, initial encounter Status: Acute Assessment and Plan: Patient endorses fall at home 1 day prior to presentation in which she fell on to the left upper extremity. Did not hit her head or lose consciousness Fall precautions Left forearm and humerus x-ray unremarkable (5) Noncompliance: Code(s): Z91.19 - Patient's noncompliance with other medical treatment and regimen Status: Acute Assessment and Plan: Patient has not taken any medications in over 1 year despite several chronic illnesses. She has not seen a doctor in 2 years Question patient's ability to care for herself independently at home She will be referred to the on-call primary care physician on discharge Care coordination has provided a list of primary care provider (6) Diabetes mellitus: Code(s): E11.9 - Type 2 diabetes mellitus without complications Status: Acute Assessment and Plan: A1c is 6.6. This is better than anticipated given no medications in 2 years. Press patient is diet controlled. Blood sugars have been well controlled today Accu-Cheks, sliding scale insulin, hypoglycemic protocol Monitor glucose trends and adjust insulin regimen as needed (7) Hypothyroidism: Code(s): E03.9 - Hypothyroidism, unspecified Status: Acute Assessment and Plan: Patient reports history of hypothyroidism but is not taking any medication TSH evaluated and is within normal limits at 1.3. No further evaluation needed (8) Leukocytosis: Code(s): D72.829 - Elevated white blood cell count, unspecified Status: Acute Assessment and Plan: Resolved. Likely reactive WBC 9.0 today (9) Vitamin B12 deficiency: Code(s): E53.8 - Deficiency of other specified B group vitamins Status: Acute Assessment and Plan: B12 level is low. This may be contributing to patient's complaints of numbness in extremities Begin cyanocobalamin supplementation (10) Hyperammonemia: Code(s): E72.20 - Disorder of urea cycle metabolism, unspecified Status: Acute Assessment and Plan: Ammonia level noted to be slightly elevated Right upper quadrant ultrasound completed today for evaluation of possible cirrhosis. Revealed diffuse hepatic steatosis with no surface nodularity. No further evaluation needed Plan Downgrade to medical floor. Subjective Date/time seen: 01/30/22 13:37 Interval history: Date of service: 01/30/2022 Lili Acosta is a 66-year-old female with a history of anxiety, asthma, CAD, depression, diabetes mellitus, hypertension, hypothyroidism, and restless leg syndrome who has not taken any medications for her chronic illnesses in >1 year as she has n
[2022-01-30] MEDS: ASPIRIN 81 MG ENTERIC TABLET PO (15:54)
[2022-01-30 16:27] LABS: Glucose Point of Care 143 mg/dl (65-105)
--- NOTE | 2022-01-30 16:30 | PC.NURSE ---
This patient, Lili Acosta, was transferred to [ [id number]] on 01/30/22 at 1631. Personal belongings sent with patient. Report given to [MARTÍN Bourgeois ]. Appropriate documentation sent with patient.
--- NOTE | 2022-01-30 16:36 | PC.NURSE ---
This patient, Lili Acosta, was received from [imu] on 01/30/22 at 1635. Patient/family oriented to unit policies and routines
[2022-01-30] MEDS: POTASSIUM CHLORIDE 20 MEQ TABLET.ER PO (16:45)
[2022-01-30 23:57] LABS: Glucose Point of Care 143 mg/dl (65-105)
[2022-01-31] VITALS: PULSE 53
--- NOTE | 2022-01-31 | ECHO_ITS ---
Patient Info Name: Lili Acosta Age: 66 years : 1955 Gender: Female Ht: 65 in Wt: 168 lbs BSA: 1.89 m2 HR: 70 bpm BP: 108 / 47 mmHg Technical Quality: Fair Exam Date: 01/31/2022 10:21 AM Exam Location: [facility] Pulmonary Exam Room: 306 Patient Status: Inpatient Admit Date: 01/29/2022 Staff Ordering Physician: Ronda Jain PA-C Gift Packer: Tiffanie Ratliff RCS Attending Provider: Ronda Jain PA-C Referring Physician: Cristobal SAMUEL; Exam Type: CA echo doppler w bubble study Study Info Indications - left side weakness cva Complete two-dimensional, color flow and Doppler transthoracic echocardiogram is performed with agitated saline. Contrast/Agitated Saline Contrast/Ag. Saline: Agitated Saline Amount: 20.00 ml Existing IV Access: Yes IV Access Condition: patent with no signs of infiltration Summary 1. Technically difficult study, suboptimal image quality. Normal LV size, mild LVH, normal LV systolic function with ejection fraction about 70%. Diastolic dysfunction is present. Mild left atrial enlargement. No evidence of interatrial shunt on agitated normal saline study. Normal mitral valve structure, no significant MR. Aortic valve is not well visualized. Mild aortic stenosis, Vmax 2 m/sec, mean gradient 9 mmHg, calculated JOHNATHAN 2.2 cm2. Trace TR, mild pulmonary hypertension, RVSP 40 mmHg. Left Ventricle Left ventricular chamber dimension is normal. Left ventricular systolic function is hyperdynamic, estimated at >70%. The left ventricular diastolic function is abnormal. Left Atria Left atrial chamber dimension is mildly enlarged. Right Atria Right atrial chamber dimension is normal. Atrial Septum Intact interatrial septum visualized by agitated saline imaging. Aortic Valve The aortic valve is not well visualized. There is mild aortic valve stenosis with a peak velocity of 222 cm/s, mean gradient of 13 mmHg, and aortic valve area of 2.1 cm2. Pulmonic Valve The pulmonic valve is not well visualized. Mitral Valve The mitral valve has normal leaflets. There is no mitral valve regurgitation. Tricuspid Valve The tricuspid valve leaflets are not well visualized. There is trace tricuspid valve regurgitation. Mild pulmonary hypertension, estimated pulmonary arterial systolic pressure is 40 mmHg. Pericardium/Pleural The pericardium appears normal. Aorta The aortic root size at the sinus of Valsalva is not well visualized. Left Ventricular Outflow Tract Name Value Normal LVOT 2D LVOT Diameter 2.0 cm LVOT Doppler LVOT Peak Gradient 8 mmHg LVOT Mean Gradient 5 mmHg LVOT VTI 28 cm LVOT VTI/AV VTI Ratio 0.7 LVOT Stroke Volume 89 ml Pulmonic Valve Name Value Normal PV Doppler
[2022-01-31 04:00] VITALS: PULSE 47
[2022-01-31 06:06] LABS: Hematocrit 37.5 % (37.0-47.0); Immature Platelet Fraction Pct 4.3 % (0.9-11.2); Mean Corpuscular HGB Conc 34.7 g/dl (32-36); Mean Corpuscular Hemoglobin 30.3 pg (26-34); Mean Corpuscular Volume 87.4 fl (80-100); Platelet Count Result 116 k/mm3 (150-375); Red Blood Count 4.29 M/mm3 (4.2-5.4); Red Cell Distribution Width 13.2 % (11.5-14.5)
[2022-01-31 06:17] LABS: Anion Gap 13 mmol/L (8-16); Blood Urea Nitrogen 8 mg/dL (7-17); Calcium 8.3 mg/dL (8.4-10.2); Carbon Dioxide 29 mmol/L (22-30); Chloride 101 mmol/L (98-107); Cholesterol 167 mg/dL (0-200); Estimated CRCL calculation 116 ml/min; Estimated Glomerular Filt Rate > 60; Glucose 139 mg/dL (65-110); HDL Direct 30 mg/dL; Magnesium 1.5 mg/dL (1.6-2.3); Sodium 143 mmol/L (137-145); Triglycerides 227 mg/dL (<150)
[2022-01-31 06:28] LABS: LDL Cholesterol Direct 96 mg/dL
[2022-01-31 08:00] VITALS: PULSE 80
[2022-01-31 08:09] LABS: Glucose Point of Care 141 mg/dl (65-105)
[2022-01-31] MEDS: MAGNESIUM OXIDE 400 MG TABLET PO (09:16)
[2022-01-31] MEDS: POTASSIUM CHLORIDE 20 MEQ TABLET 40 MEQ PO (09:16)
[2022-01-31] MEDS: CYANOCOBALAMIN 1,000 MCG TABLET 1000 MCG PO (09:16)
[2022-01-31] MEDS: ASPIRIN 81 MG ENTERIC TABLET PO (09:16)
[2022-01-31] MEDS: POTASSIUM CHLORIDE 20 MEQ TABLET.ER PO ×2 (09:17→16:14)
[2022-01-31] MEDS: MAGNESIUM SULF 2 GM/WATER 50ML 2 GM/50 ML BAG IVPB (09:17)
--- NOTE | 2022-01-31 09:57 | WPDNEUROPN ---
Progress Note: A&P Assessment and Plan (1) Acute left-sided muscle weakness: Code(s): M62.81 - Muscle weakness (generalized) Status: Acute Assessment and Plan: Lili Acosta is a 66 year old female with a history of anxiety, asthma, CAD, depression, HTN, hypothyroidism, RLS who presented due to a 5 day history of left sided weakness and numbness. MRI brain was negative for acute stroke. Likely related to underlying electrolyte derangements vs psychogenic. - No further testing needed unless new neurological symptoms arise Subjective Date/time seen: 01/31/22 09:57 Interval history: Lili Acosta is a 66 year old female with a history of anxiety, asthma, CAD, depression, HTN, hypothyroidism, RLS who presented due to a 5 day history of left sided weakness and numbness. The weakness started gradually in her left foot and then spread to her left hand. She also felt that it was spreading to her right hand. She was also having difficulty walking and chest pain. She reports blurry vision and tinnitus and also feeling out of her body . Based on chart review it seems that the symptoms started in her left leg prior to her left arm. She did have a fall prior to admission where she fell on her left arm which she is complaining about pain. She was taken to the ED for further evaluation. CT head was negative. CTA showed only 10% stenosis of the left carotid bulb. Her NIH score was 3 but she was outside the window for tPA. Her labs were significant for leukocytosis WBC 12.7 and hypokalemia 2.0. MRI brain was negative for acute stroke, patient still reporting numbness on the left side and perioral numbness. Was eating apple sauce this morning. Electrolytes are still being replenished. Review of Systems Constitutional: Constitutional: Reports weakness Eyes: Eyes: Reports no additional eye complaints ENT: Reports Normal hearing present and Reports tinnitus Cardiovascular: Cardiovascular: Denies chest pain and Denies dyspnea Respiratory: Respiratory: Denies dyspnea Gastrointestinal: Gastrointestinal: Reports no additional gastrointestinal complaints Genitourinary: Genitourinary: Reports no additional female genitourinary complaints Musculoskeletal: Musculoskeletal: Reports no additional musculoskeletal complaints Integumentary/Breasts: Skin/Breast: Reports system reviewed and no additional complaints, except as docu Neurologic: Reports as per HPI, Reports Normal hearing present and Reports weakness Psychiatric: Psychiatric: Reports anxiety Exam Const: General: comfortable and no acute distress HENMT: General nose exam: Normal nares present Mouth: Yes moist mucous membranes Eyes: General: appearance normal, both eyes and all related structures Pupils: Equal, round and reactive pupils present EOM: EOMs intact bilaterally Neck: Neck: supple Resp: Effort & Inspection: normal respiratory effort Auscultation: clear to auscultation bilaterally Cardio: Rate: regular rate Rhythm: regular rhythm GI: Auscultation: normal bowel sounds Skin: General skin exam: normal color Neuro: Cranial nerves: Yes Equal, round and reactive pupils present and Yes Normal hearing present Other: AOx3, Pupils equal and reactive bilaterally, EOMI, face symmetric, tongue protrudes midline, palate midline. Shoulder shrug normal. equal bilaterally, moves right and left upper and lower extremities equally against gravity and resistance. Decreased sensation to light touch over left arm and left leg. Reflexes 2+ in biceps, 1+patellar, and 1+AJ bilaterally, FNF normal bilaterally. Language comprehension and fluency intact. Gait deferred. Extrem: General: normal to inspection Psych: Mental Status: mental status grossly normal Objective Data Vital Signs Vital Signs: Vital Signs - 24 hr 01/30/22 10:00 01/30/22 12:00 01/30/22 12:00 Temperature 36.7 C Pulse Rate 77 58 L 53 L Respiratory Rate 20 Blood Pressure 131/55 L Pulse Ox
[2022-01-31 11:50] LABS: Glucose Point of Care 174 mg/dl (65-105)
[2022-01-31 12:00] VITALS: PULSE 94
--- NOTE | 2022-01-31 12:45 | P.PNIM_ITS ---
Progress Note: A&P Assessment and Plan (1) Acute hypokalemia: Code(s): E87.6 - Hypokalemia Status: Acute Assessment and Plan: Potassium 2.0 on admission * Etiology unclear. No nausea, vomiting, diarrhea, medications, alcohol abuse * Improved with supplementation. * Potassium 3.0 today. * 40 mEq PO KCl this morning * Continue scheduled potassium supplementation b.i.d. * Monitor on telemetry. Patient is in sinus rhythm. * Monitor BMP (2) Hypomagnesemia: Code(s): E83.42 - Hypomagnesemia Status: Acute Assessment and Plan: Magnesium 1.5 today * Improved with supplementation * 2 g IV magnesium sulfate * Scheduled p.o. magnesium oxide 400 mg daily (3) Acute left-sided muscle weakness: Code(s): M62.81 - Muscle weakness (generalized) Status: Acute Assessment and Plan: Questionable history. Neurologic vs psychogenic * No acute findings on head CT or CTA of the head and neck. Brain MRI normal. * Appreciate neurology consultation * Echo with bubble study pending * Appreciate PT/OT evals * No further neurologic evaluation needed at this time per Neurology recommendations (4) Fall: Code(s): W19.XXXA - Unspecified fall, initial encounter Status: Acute Assessment and Plan: Patient endorses fall at home 1 day prior to presentation in which she fell on to the left upper extremity. Did not hit her head or lose consciousness * Fall precautions * Left forearm and humerus x-ray unremarkable (5) Noncompliance: Code(s): Z91.19 - Patient's noncompliance with other medical treatment and regimen Status: Acute Assessment and Plan: Patient has not taken any medications in over 1 year despite several chronic illnesses. She has not seen a doctor in 2 years * Question patient's ability to care for herself independently at home * She will be referred to the on-call primary care physician on discharge * Care coordination has provided a list of primary care provider (6) Diabetes mellitus: Code(s): E11.9 - Type 2 diabetes mellitus without complications Status: Acute Assessment and Plan: A1c is 6.6. This is better than anticipated given no medications in 2 years. Suspect patient has been diet controlled. Blood sugars have been well controlled today * Accu-Cheks, sliding scale insulin, hypoglycemic protocol * Monitor glucose trends and adjust insulin regimen as needed (7) Hypothyroidism: Code(s): E03.9 - Hypothyroidism, unspecified Status: Acute Assessment and Plan: Patient reports history of hypothyroidism but is not taking any medication * TSH evaluated and is within normal limits at 1.3. No further evaluation needed (8) Vitamin B12 deficiency: Code(s): E53.8 - Deficiency of other specified B group vitamins Status: Acute Assessment and Plan: B12 level is low. This may be contributing to patient's complaints of numbness in extremities * Continue cyanocobalamin supplementation Subjective Date/time seen: 01/31/22 12:45 Interval history: Date of service: 01/31/2022 Lili Acosta is a 66-year-old female with a history of anxiety, asthma, CAD, depression, diabetes mellitus, hypertension, hypothyroidism, and restless leg syndrome who has not taken any medications for her chronic illnesses in >1 year as she has not been seen by a doctor in nearly 2 years.? She is seen in follow- up for left-sided weakness. She is feeling it down today. She is frust
--- NOTE | 2022-01-31 12:45 | PM.IMPN ---
Progress Note: A&P Assessment and Plan (1) Acute hypokalemia: Code(s): E87.6 - Hypokalemia Status: Acute Assessment and Plan: Potassium 2.0 on admission Etiology unclear. No nausea, vomiting, diarrhea, medications, alcohol abuse Improved with supplementation. Potassium 3.0 today. 40 mEq PO KCl this morning Continue scheduled potassium supplementation b.i.d. Monitor on telemetry. Patient is in sinus rhythm. Monitor BMP (2) Hypomagnesemia: Code(s): E83.42 - Hypomagnesemia Status: Acute Assessment and Plan: Magnesium 1.5 today Improved with supplementation 2 g IV magnesium sulfate Scheduled p.o. magnesium oxide 400 mg daily (3) Acute left-sided muscle weakness: Code(s): M62.81 - Muscle weakness (generalized) Status: Acute Assessment and Plan: Questionable history. Neurologic vs psychogenic No acute findings on head CT or CTA of the head and neck. Brain MRI normal. Appreciate neurology consultation Echo with bubble study pending Appreciate PT/OT evals No further neurologic evaluation needed at this time per Neurology recommendations (4) Fall: Code(s): W19.XXXA - Unspecified fall, initial encounter Status: Acute Assessment and Plan: Patient endorses fall at home 1 day prior to presentation in which she fell on to the left upper extremity. Did not hit her head or lose consciousness Fall precautions Left forearm and humerus x-ray unremarkable (5) Noncompliance: Code(s): Z91.19 - Patient's noncompliance with other medical treatment and regimen Status: Acute Assessment and Plan: Patient has not taken any medications in over 1 year despite several chronic illnesses. She has not seen a doctor in 2 years Question patient's ability to care for herself independently at home She will be referred to the on-call primary care physician on discharge Care coordination has provided a list of primary care provider (6) Diabetes mellitus: Code(s): E11.9 - Type 2 diabetes mellitus without complications Status: Acute Assessment and Plan: A1c is 6.6. This is better than anticipated given no medications in 2 years. Suspect patient has been diet controlled. Blood sugars have been well controlled today Accu-Cheks, sliding scale insulin, hypoglycemic protocol Monitor glucose trends and adjust insulin regimen as needed (7) Hypothyroidism: Code(s): E03.9 - Hypothyroidism, unspecified Status: Acute Assessment and Plan: Patient reports history of hypothyroidism but is not taking any medication TSH evaluated and is within normal limits at 1.3. No further evaluation needed (8) Vitamin B12 deficiency: Code(s): E53.8 - Deficiency of other specified B group vitamins Status: Acute Assessment and Plan: B12 level is low. This may be contributing to patient's complaints of numbness in extremities Continue cyanocobalamin supplementation Subjective Date/time seen: 01/31/22 12:45 Interval history: Date of service: 01/31/2022 Lili Acosta is a 66-year-old female with a history of anxiety, asthma, CAD, depression, diabetes mellitus, hypertension, hypothyroidism, and restless leg syndrome who has not taken any medications for her chronic illnesses in >1 year as she has not been seen by a doctor in nearly 2 years.? She is seen in follow-up for left-sided weakness. She is feeling it down today. She is frustrated because she is having a hard time walking due to her weakness. She states she cannot walk by herself and is worried that she cannot care for herself anymore. She mentioned stated she was having difficulty feeding herself. She was able to feed herself her entire breakfast, however she stated she needed to do this very slowly. She denies nausea, vomiting, fever, chills, tremors, dizziness, lightheadedness. No chest pain or shortness breath.
[2022-01-31 15:31] VITALS: BP 134/44; PULSE 61; RESP 16; TEMP 36.2; O2SAT 95
[2022-01-31 16:43] LABS: Glucose Point of Care 180 mg/dl (65-105)
[2022-01-31 20:33] LABS: Glucose Point of Care 155 mg/dl (65-105)
[2022-01-31 22:00] VITALS: BP 126/51; PULSE 69; RESP 16; TEMP 36.4; O2SAT 97
[2022-02-01 05:55] LABS: Hematocrit 40.2 % (37.0-47.0); Hemoglobin 13.6 g/dL (12.0-15.0); Immature Platelet Fraction Pct 4.3 % (0.9-11.2); Mean Corpuscular HGB Conc 33.8 g/dl (32-36); Mean Corpuscular Hemoglobin 30.6 pg (26-34); Mean Corpuscular Volume 90.5 fl (80-100); Mean Platelet Volume 9.9 fl (7.4-10.4); Platelet Count Result 117 k/mm3 (150-375); Red Blood Count 4.44 M/mm3 (4.2-5.4); Red Cell Distribution Width 12.9 % (11.5-14.5); White Blood Count 7.1 K/mm3 (4.5-10.0)
[2022-02-01 06:00] VITALS: BP 140/71; PULSE 55; RESP 20; TEMP 36.2; O2SAT 97
[2022-02-01 06:09] LABS: Anion Gap 7 mmol/L (8-16); Blood Urea Nitrogen 11 mg/dL (7-17); Carbon Dioxide 28 mmol/L (22-30); Chloride 106 mmol/L (98-107); Estimated CRCL calculation 95 ml/min; Estimated Glomerular Filt Rate > 60; Glucose 140 mg/dL (65-110); Magnesium 1.7 mg/dL (1.6-2.3); Potassium 3.4 mmol/L (3.4-5.0); Sodium 141 mmol/L (137-145)
[2022-02-01 07:33] LABS: Glucose Point of Care 152 mg/dl (65-105)
[2022-02-01] MEDS: MAGNESIUM OXIDE 400 MG TABLET PO (08:38)
[2022-02-01] MEDS: POTASSIUM CHLORIDE 20 MEQ TABLET.ER PO ×2 (08:38→17:33)
[2022-02-01] MEDS: CYANOCOBALAMIN 1,000 MCG TABLET 1000 MCG PO (08:38)
[2022-02-01] MEDS: ASPIRIN 81 MG ENTERIC TABLET PO (08:38)
[2022-02-01 11:27] LABS: Glucose Point of Care 150 mg/dl (65-105)
[2022-02-01 14:00] VITALS: BP 143/70; PULSE 67; RESP 16; TEMP 35.7; O2SAT 97
--- NOTE | 2022-02-01 14:16 | P.PNIM_ITS ---
Progress Note: A&P Assessment and Plan (1) Acute hypokalemia: Code(s): E87.6 - Hypokalemia Status: Acute Assessment and Plan: Potassium 2.0 on admission * Etiology unclear. No nausea, vomiting, diarrhea, medications, alcohol abuse * Improved with supplementation. * Potassium 3.4 today. * Continue scheduled potassium supplementation b.i.d. * Monitor BMP (2) Hypomagnesemia: Code(s): E83.42 - Hypomagnesemia Status: Acute Assessment and Plan: improved with supplementation * Magnesium 1.7 today * Scheduled p.o. magnesium oxide 400 mg daily (3) Acute left-sided muscle weakness: Code(s): M62.81 - Muscle weakness (generalized) Status: Acute Assessment and Plan: Questionable history. Neurologic vs most likely psychogenic * No acute findings on head CT or CTA of the head and neck. Brain MRI normal. * Appreciate neurology consultation * Echo completed per neurology recommendations with no significant findings * Appreciate PT/OT evals * No further neurologic evaluation needed at this time per Neurology recommendations (4) Fall: Code(s): W19.XXXA - Unspecified fall, initial encounter Status: Acute Assessment and Plan: Patient endorses fall at home 1 day prior to presentation in which she fell on to the left upper extremity. Did not hit her head or lose consciousness * Fall precautions * Left forearm and humerus x-ray unremarkable (5) Noncompliance: Code(s): Z91.19 - Patient's noncompliance with other medical treatment and regimen Status: Acute Assessment and Plan: Patient has not taken any medications in over 1 year despite several chronic illnesses. She has not seen a doctor in 2 years * Patient endorses feeling as though she cannot care for herself independently. Planning for SNF following discharge * She will be referred to the on-call primary care physician on discharge * Care coordination has provided a list of primary care provider (6) Diabetes mellitus: Code(s): E11.9 - Type 2 diabetes mellitus without complications Status: Acute Assessment and Plan: A1c is 6.6. This is better than anticipated given no medications in 2 years. Suspect patient has been diet controlled. Blood sugars have been well controlled today * Accu-Cheks, sliding scale insulin, hypoglycemic protocol * Monitor glucose trends and adjust insulin regimen as needed (7) Hypothyroidism: Code(s): E03.9 - Hypothyroidism, unspecified Status: Acute Assessment and Plan: Patient reports history of hypothyroidism but is not taking any medication * TSH evaluated and is within normal limits at 1.3. No further evaluation needed (8) Vitamin B12 deficiency: Code(s): E53.8 - Deficiency of other specified B group vitamins Status: Acute Assessment and Plan: B12 level is low. This may be contributing to patient's complaints of numbness in extremities * Continue cyanocobalamin supplementation Subjective Date/time seen: 02/01/22 14:16 Interval history: Date of service: 02/01/2022 Lili Acosta is a 66-year-old female with a history of anxiety, asthma, CAD, depression, diabetes mellitus, hypertension, hypothyroidism, and restless leg syndrome who has not taken any medications for her chronic illnesses in >1 year as she has not been seen by a doctor in nearly 2 years.? She is seen in follow- up for left-sided weakness. she states she is upset today because she got herself
--- NOTE | 2022-02-01 14:16 | PM.IMPN ---
Progress Note: A&P Assessment and Plan (1) Acute hypokalemia: Code(s): E87.6 - Hypokalemia Status: Acute Assessment and Plan: Potassium 2.0 on admission Etiology unclear. No nausea, vomiting, diarrhea, medications, alcohol abuse Improved with supplementation. Potassium 3.4 today. Continue scheduled potassium supplementation b.i.d. Monitor BMP (2) Hypomagnesemia: Code(s): E83.42 - Hypomagnesemia Status: Acute Assessment and Plan: improved with supplementation Magnesium 1.7 today Scheduled p.o. magnesium oxide 400 mg daily (3) Acute left-sided muscle weakness: Code(s): M62.81 - Muscle weakness (generalized) Status: Acute Assessment and Plan: Questionable history. Neurologic vs most likely psychogenic No acute findings on head CT or CTA of the head and neck. Brain MRI normal. Appreciate neurology consultation Echo completed per neurology recommendations with no significant findings Appreciate PT/OT evals No further neurologic evaluation needed at this time per Neurology recommendations (4) Fall: Code(s): W19.XXXA - Unspecified fall, initial encounter Status: Acute Assessment and Plan: Patient endorses fall at home 1 day prior to presentation in which she fell on to the left upper extremity. Did not hit her head or lose consciousness Fall precautions Left forearm and humerus x-ray unremarkable (5) Noncompliance: Code(s): Z91.19 - Patient's noncompliance with other medical treatment and regimen Status: Acute Assessment and Plan: Patient has not taken any medications in over 1 year despite several chronic illnesses. She has not seen a doctor in 2 years Patient endorses feeling as though she cannot care for herself independently. Planning for SNF following discharge She will be referred to the on-call primary care physician on discharge Care coordination has provided a list of primary care provider (6) Diabetes mellitus: Code(s): E11.9 - Type 2 diabetes mellitus without complications Status: Acute Assessment and Plan: A1c is 6.6. This is better than anticipated given no medications in 2 years. Suspect patient has been diet controlled. Blood sugars have been well controlled today Accu-Cheks, sliding scale insulin, hypoglycemic protocol Monitor glucose trends and adjust insulin regimen as needed (7) Hypothyroidism: Code(s): E03.9 - Hypothyroidism, unspecified Status: Acute Assessment and Plan: Patient reports history of hypothyroidism but is not taking any medication TSH evaluated and is within normal limits at 1.3. No further evaluation needed (8) Vitamin B12 deficiency: Code(s): E53.8 - Deficiency of other specified B group vitamins Status: Acute Assessment and Plan: B12 level is low. This may be contributing to patient's complaints of numbness in extremities Continue cyanocobalamin supplementation Subjective Date/time seen: 02/01/22 14:16 Interval history: Date of service: 02/01/2022 Lili Acotsa is a 66-year-old female with a history of anxiety, asthma, CAD, depression, diabetes mellitus, hypertension, hypothyroidism, and restless leg syndrome who has not taken any medications for her chronic illnesses in >1 year as she has not been seen by a doctor in nearly 2 years.? She is seen in follow-up for left-sided weakness. she states she is upset today because she got herself out of bed to go to the bedside commode and her bed alarm went off. She states she does not want to have the alarm on. She stated she would stop eating and drinking so that she would not have to go to the bathroom if she could not get out of bed to get herself to the bathroom on her own. Informed her this is a precaution due to her risk for falls. She was understanding regarding this. She states that her arms do not work. she endorses nu
[2022-02-01 16:37] LABS: Glucose Point of Care 154 mg/dl (65-105)
[2022-02-01 20:00] VITALS: PULSE 67; RESP 16; O2SAT 97
[2022-02-01 20:15] LABS: Glucose Point of Care 137 mg/dl (65-105)
[2022-02-01 22:00] VITALS: BP 146/65; PULSE 64; RESP 18; TEMP 36; O2SAT 97
[2022-02-02 05:50] LABS: Hematocrit 42.7 % (37.0-47.0); Hemoglobin 14.3 g/dL (12.0-15.0); Immature Platelet Fraction Pct 4.3 % (0.9-11.2); Mean Corpuscular HGB Conc 33.5 g/dl (32-36); Mean Corpuscular Hemoglobin 30.7 pg (26-34); Mean Corpuscular Volume 91.6 fl (80-100); Mean Platelet Volume 9.7 fl (7.4-10.4); Platelet Count Result 141 k/mm3 (150-375); Red Blood Count 4.66 M/mm3 (4.2-5.4); Red Cell Distribution Width 12.9 % (11.5-14.5); White Blood Count 7.4 K/mm3 (4.5-10.0)
[2022-02-02 06:00] VITALS: BP 139/68; PULSE 59; RESP 17; TEMP 36.1; O2SAT 94
[2022-02-02 06:27] LABS: Anion Gap 19 mmol/L (8-16); Blood Urea Nitrogen 12 mg/dL (7-17); Carbon Dioxide 25 mmol/L (22-30); Chloride 99 mmol/L (98-107); Estimated CRCL calculation 95 ml/min; Estimated Glomerular Filt Rate > 60; Glucose 151 mg/dL (65-110); Magnesium 1.6 mg/dL (1.6-2.3); Sodium 143 mmol/L (137-145)
[2022-02-02 07:57] LABS: Glucose Point of Care 142 mg/dl (65-105)
[2022-02-02] MEDS: ASPIRIN 81 MG ENTERIC TABLET PO (07:58)
[2022-02-02] MEDS: POTASSIUM CHLORIDE 20 MEQ TABLET.ER PO (07:58)
[2022-02-02] MEDS: CYANOCOBALAMIN 1,000 MCG TABLET 1000 MCG PO (07:58)
[2022-02-02 08:00] VITALS: O2SAT 95
[2022-02-02] MEDS: MAGNESIUM OXIDE 400 MG TABLET PO (08:13)
--- NOTE | 2022-02-02 09:28 | P.DS_ITS ---
DS: Admitting Diagnosis Discharge Date 02/02/22 Admitting Diagnosis 02/02/22 DS: Discharge Diagnosis Discharge Diagnosis (1) Acute hypokalemia: Code(s): E87.6 - Hypokalemia Status: Acute Assessment and Plan: Potassium 2.0 on admission * Etiology unclear. No nausea, vomiting, diarrhea, medications, alcohol abuse * Improved with supplementation. * Continue scheduled potassium supplementation 20 mEq daily * Encouraged appropriate PO intake (2) Hypomagnesemia: Code(s): E83.42 - Hypomagnesemia Status: Acute Assessment and Plan: Improved with supplementation * Scheduled p.o. magnesium oxide 400 mg daily (3) Acute left-sided muscle weakness: Code(s): M62.81 - Muscle weakness (generalized) Status: Acute Assessment and Plan: Questionable history. Neurologic vs most likely psychogenic * No acute findings on head CT or CTA of the head and neck. Brain MRI normal. * She was seen in consultation by Neurology * During admission, patient reports weakness evolved into all 4 extremities h owever retained ability to move all extremities appropriately. * Echo completed per neurology recommendations with no significant findings * No further neurologic evaluation needed at this time per Neurology recommendations. Patient started on aspirin 81 mg daily per Neuro recs * Statin recommended per Neurology and based on ASCVD 10 year risk score of 24.9% (moderate intensity recommended), however this was deferred in order to prevent worsened weakness of extremities. Patient should follow up with PCP as an outpatient to reassess risk vs benefits of statin therapy * SNF following discharge * May consider outpatient EMG if issue persists following appropriate therapy. Additionally, could consider outpatient psychiatry follow up if workup is unrevealing. (4) Fall: Code(s): W19.XXXA - Unspecified fall, initial encounter Status: Acute Assessment and Plan: Patient endorses fall at home 1 day prior to presentation in which she fell on to the left upper extremity. Did not hit her head or lose consciousness * Fall precautions implemented * Left forearm and humerus x-ray unremarkable (5) Noncompliance: Code(s): Z91.19 - Patient's noncompliance with other medical treatment and regimen Status: Acute Assessment and Plan: Patient has not taken any medications in over 1 year despite several chronic illnesses. She has not seen a doctor in 2 years * Patient endorses feeling as though she cannot care for herself independently. * She was referred to the on-call primary care physician on discharge. She is aware of need for appropriate medical follow up. (6) Diabetes mellitus: Code(s): E11.9 - Type 2 diabetes mellitus without complications Status: Acute Assessment and Plan: A1c is 6.6. This is better than anticipated given no medications in 2 years. Suspect patient has been diet controlled. Blood sugars well controlled during admission * Sliding scale insulin initiated but patient did not require as blood sugars were controlled * Continue to monitor at SNF. Follow up with PCP for review (7) Hypothyroidism: Code(s): E03.9 - Hypothyroidism, unspecified Status: Acute Assessment and Plan: Patient reports history of hypothyroidism but was not taking any medication * TSH evaluated and was within normal limits at 1.3. No further evaluation needed (8) Vitamin B12 deficiency: Code(s): E53.8 - Deficiency of other specified B
--- NOTE | 2022-02-02 09:28 | PM.DS ---
DS: Admitting Diagnosis Discharge Date 02/02/22 Admitting Diagnosis 02/02/22 DS: Discharge Diagnosis Discharge Diagnosis (1) Acute hypokalemia: Code(s): E87.6 - Hypokalemia Status: Acute Assessment and Plan: Potassium 2.0 on admission Etiology unclear. No nausea, vomiting, diarrhea, medications, alcohol abuse Improved with supplementation. Continue scheduled potassium supplementation 20 mEq daily Encouraged appropriate PO intake (2) Hypomagnesemia: Code(s): E83.42 - Hypomagnesemia Status: Acute Assessment and Plan: Improved with supplementation Scheduled p.o. magnesium oxide 400 mg daily (3) Acute left-sided muscle weakness: Code(s): M62.81 - Muscle weakness (generalized) Status: Acute Assessment and Plan: Questionable history. Neurologic vs most likely psychogenic No acute findings on head CT or CTA of the head and neck. Brain MRI normal. She was seen in consultation by Neurology During admission, patient reports weakness evolved into all 4 extremities however retained ability to move all extremities appropriately. Echo completed per neurology recommendations with no significant findings No further neurologic evaluation needed at this time per Neurology recommendations. Patient started on aspirin 81 mg daily per Neuro recs Statin recommended per Neurology and based on ASCVD 10 year risk score of 24.9% (moderate intensity recommended), however this was deferred in order to prevent worsened weakness of extremities. Patient should follow up with PCP as an outpatient to reassess risk vs benefits of statin therapy SNF following discharge May consider outpatient EMG if issue persists following appropriate therapy. Additionally, could consider outpatient psychiatry follow up if workup is unrevealing. (4) Fall: Code(s): W19.XXXA - Unspecified fall, initial encounter Status: Acute Assessment and Plan: Patient endorses fall at home 1 day prior to presentation in which she fell on to the left upper extremity. Did not hit her head or lose consciousness Fall precautions implemented Left forearm and humerus x-ray unremarkable (5) Noncompliance: Code(s): Z91.19 - Patient's noncompliance with other medical treatment and regimen Status: Acute Assessment and Plan: Patient has not taken any medications in over 1 year despite several chronic illnesses. She has not seen a doctor in 2 years Patient endorses feeling as though she cannot care for herself independently. She was referred to the on-call primary care physician on discharge. She is aware of need for appropriate medical follow up. (6) Diabetes mellitus: Code(s): E11.9 - Type 2 diabetes mellitus without complications Status: Acute Assessment and Plan: A1c is 6.6. This is better than anticipated given no medications in 2 years. Suspect patient has been diet controlled. Blood sugars well controlled during admission Sliding scale insulin initiated but patient did not require as blood sugars were controlled Continue to monitor at SNF. Follow up with PCP for review (7) Hypothyroidism: Code(s): E03.9 - Hypothyroidism, unspecified Status: Acute Assessment and Plan: Patient reports history of hypothyroidism but was not taking any medication TSH evaluated and was within normal limits at 1.3. No further evaluation needed (8) Vitamin B12 deficiency: Code(s): E53.8 - Deficiency of other specified B group vitamins Status: Acute Assessment and Plan: B12 level is low. This may be contributing to patient's complaints of numbness in extremities Continue cyanocobalamin supplementation (9) Tobacco abuse: Code(s): Z72.0 - Tobacco use Status: Acute Assessment and Plan: Patient smokes 1 ppd. Educated regarding smoking cessation. Patient verbalized understanding and does intend to quit
[2022-02-02 10:35] LABS: EDCOVIDSCREEN Negative (Negative)
[2022-02-02 11:31] LABS: Glucose Point of Care 194 mg/dl (65-105)
--- NOTE | 2022-02-02 12:37 | PCOTNOTE ---
Attempted to see patient this pm, however patient refused stating, I don't feel like it. I'm just disgusted. It's useless, it's hopeless. Pt discussed condition and inabilities stating, I can't. Encouraged patient with activity up in chair and completing ADLs to prepare for discharge, and patient continued to refuse at this time.
== END 2022-02-02 14:14 | DRG 641 ==
LOC: ANHED 11:07 → ANHIMU 11:49 → ANH3MEDSUR 01-30 16:27
PROVIDERS: Physician Assistant; Admitting Provider Chiropractor; Emergency Provider Emergency Medicine; Visit Provider Internal Medicine
DX: E87.6 Hypokalemia (principal); E72.20 Disorder of urea cycle metabolism, unspecified; E83.42 Hypomagnesemia; I25.10 Atherosclerotic heart disease of native coronary artery without angina pectoris; I10 Essential (primary) hypertension; J45.909 Unspecified asthma, uncomplicated; E11.9 Type 2 diabetes mellitus without complications; E53.8 Deficiency of other specified B group vitamins; E03.9 Hypothyroidism, unspecified; M62.81 Muscle weakness (generalized); M79.602 Pain in left arm; R29.703 NIHSS score 3; G25.81 Restless legs syndrome; F32.A Depression, unspecified; F41.9 Anxiety disorder, unspecified; F17.210 Nicotine dependence, cigarettes, uncomplicated; W19.XXXA Unspecified fall, initial encounter; Z20.822 Contact with and (suspected) exposure to COVID-19; Z91.19 Patient's noncompliance with other medical treatment and regimen; Z90.49 Acquired absence of other specified parts of digestive tract
CPT/HCPCS: 36415; 70450; 70496; 70498; 70551; 71045; 73060; 73090; 76705; 80048; 80053; 80061; 81003; 82140; 82607; 82746; 82948; 83036; 83735; 84132; 84443; 84484; 85025; 85027; 85055; 85610; 85730; 87426; 93005; 93306; 96365; 96366; 96375; 97110; 97161; 97165; 97530; 99285; A9270; C9803; G0378; J3475; J3480; J7040; Q9967; U0003; U0005

== ENCOUNTER 2023-11-09 12:39 | Inpatient (IN) | payer MEDICARE, MEDICAID, SELFPAY ==
[2023-11-09] VITALS (32 sets, daily range): BP systolic 98–140; BP diastolic 42–102; PULSE 66–90; RESP 16–26; TEMP 36.3–36.9; O2SAT 85–98; BMI 33.4
--- NOTE | ~2023-11-09 | CT_ITS ---
EXAMINATION: CT brain wo con DATE: 11/09/2023 15:48 INDICATION: Altered mental status. Sepsis. TECHNIQUE: Computed tomography (CT) of the head was performed without intravenous contrast. Sagittal and coronal reconstructions were performed. The mA was adjusted according to patient size. Iterative reconstruction technique was employed. The dose-length product was 605.33 mGy-cm. COMPARISON: Brain MR dated 01/30/2022 FINDINGS: No acute intracranial hemorrhage, acute infarction or abnormal extra axial fluid collection. There is mild scattered white matter hypoattenuation consistent with chronic small vessel ischemic disease. S ymmetric prominence of the sulci and and subarachnoid spaces overlying the convexities consistent wit h mild age-appropriate diffuse cerebral volume loss. Ventricles are normal and symmetric. No mass/mas s effect. The orbits, paranasal sinuses and mastoid air cells are normal. IMPRESSION: 1. Age-related changes including mild diffuse volume loss and mild scattered white matter hypoattenua tion consistent with chronic small vessel ischemic disease. No acute intracranial process. Reviewed, dictated and finalized at location A. IMPRESSION: 1. Age-related changes including mild diffuse volume loss and mild scattered wh ite matter hypoattenuation consistent with chronic small vessel ischemic diseas e. No acute intracranial process.
--- NOTE | ~2023-11-09 | XR_ITS ---
XR chest 1V portable 11/09/2023 13:53 Indication: Low oxygen saturation Procedure: AP portable chest Comparison: 03/28/2019 Findings: Left basilar airspace disease. Heart size normal. No edema, pleural effusion or pneumothora x. Impression: 1: Left basilar airspace disease may represent atelectasis or pneumonia. Reviewed, dictated and finalized at location B. Impression: 1: Left basilar airspace disease may represent atelectasis or pneumonia.
--- NOTE | ~2023-11-09 | CT_ITS ---
EXAMINATION: CT abdomen pelvis w con DATE: 11/09/2023 15:49 INDICATION: Sepsis TECHNIQUE: Computed tomography (CT) of the abdomen and pelvis was performed with 100 mL Omnipaque-350 intravenous contrast. Automated exposure control and iterative reconstruction technique were employe d. The dose-length product was 1150.08 mGy-cm. COMPARISON: None FINDINGS: Patchy consolidation groundglass opacities along with bronchial wall thickening and mucous plugging i n the dependent aspect of the bilateral lower lobes most suspicious for pneumonia. Heart size is norm al. Atherosclerotic coronary artery calcific location. Aortic valve calcification. No pericardial or pleural effusion. Postoperative change of prior Luciana fundoplication which remains below the level o f the thoracic outlet. Diffuse hepatic steatosis. Cholecystectomy clips the gallbladder fossa. Spleno megaly measuring 16.3 cm in maximal craniocaudal length. Pancreas and bilateral adrenal glands are no rmal. There are bilateral subcentimeter low-attenuation renal cysts. Resection of the cecum with ileo colic anastomosis in the right abdomen. There is gas and fluid in the distal colon consistent with di arrhea. Ya catheter within the partially decompressed bladder. The uterus is not identified and martinez s likely been surgically resected. 2.6 x 1.6 cm heterotopic ossicle at the right adnexal region. No f ree intraperitoneal gas or fluid. No pathologically enlarged abdominal or pelvic lymphadenopathy. Mil d thoracic and lumbar spondylosis. IMPRESSION: 1. Bronchial wall thickening, mucous plugging and associated patchy groundglass opacities and consoli dation in the bilateral lower lobes consistent with pneumonia. 2. Fluid in the distal colon consistent with diarrhea. No other acute intra-abdominal/pelvic process. 3. Diffuse hepatic steatosis and chronic nonspecific splenomegaly which could be related to body habi tus. Reviewed, dictated and finalized at location A. IMPRESSION: 1. Bronchial wall thickening, mucous plugging and associated patchy groundglass opacities and consolidation in the bilateral lower lobes consistent with pneum onia. 2. Fluid in the distal colon consistent with diarrhea. No other acute intra-abd ominal/pelvic process. 3. Diffuse hepatic steatosis and chronic nonspecific splenomegaly which could b e related to body habitus.
--- NOTE | 2023-11-09 13:02 | ECG_ITS ---
Test Date: 2023-11-09 13:05:06 Measurements Intervals [place] Rate: 81 P: 20 UT: 148 QRS: 22 QRSD: 110 T: 62 QT: 394 QTc: 458 Interpretive Statements SINUS RHYTHM WITH SINUS ARRHYTHMIA NONSPECIFIC T-WAVE ABNORMALITY BORDERLINE ECG No previous ECG available for comparison Electronically Signed On 11-10-2023 06:57:22 CDT by Yonatan Potts M.D.
[2023-11-09 13:25] LABS: Basophils Absolute Auto 0.1 K/mm3 (0.0-0.1); Basophils Percent Auto 0.3 % (0.2-1.2); Eosinophils Absolute Auto 0.1 K/mm3 (0-0.3); Eosinophils Percent Auto 0.6 % (0-4.4); Hematocrit 39.7 % (37.0-47.0); Hemoglobin 13.1 g/dL (12.0-15.0); Immature Granulocyte Absolute 0.22 K/mm3 (0.00-0.031); Immature Granulocyte Percent A 1.4 % (0-0.5); Lymphocytes Absolute Auto 3.58 K/mm3 (0.9-3.2); Lymphocytes Percent Auto 22.8 % (18.3-44.2); Mean Corpuscular Hemoglobin 29.6 pg (26-34); Mean Corpuscular Volume 89.6 fl (80-100); Mean Platelet Volume 9.6 fl (7.4-10.4); Monocytes Percent Auto 6.5 % (2.6-8.5); Neutrophils Absolute Auto 10.7 K/mm3 (1.3-6.7); Neutrophils Percent Auto 68.4 % (45.5-73.1); Platelet Count Result 253 k/mm3 (150-375); Red Blood Count 4.43 M/mm3 (4.2-5.4); Red Cell Distribution Width 14.6 % (11.5-14.5); White Blood Count 15.7 K/mm3 (4.5-10.0)
[2023-11-09 13:35] LABS: Lactic Acid Reflex 3.6 mmol/L (0.7-2.0)
[2023-11-09 13:38] LABS: Partial Thromboplastin Time 22.6 Seconds (22.3-36.8)
[2023-11-09 13:39] LABS: Alanine Aminotransferase 23 U/L (6-35); Albumin Level 4.5 g/dL (3.5-5.1); Alkaline Phosphatase 145 U/L (38-126); Anion Gap 12 mmol/L (4-12); Aspartate Amino Transferase 44 U/L (14-36); Bilirubin,Total 0.6 mg/dL (0.2-1.3); Blood Urea Nitrogen 49 mg/dL (7-17); CRP 7.5 mg/dL (<1.0); Calcium 9.2 mg/dL (8.4-10.2); Carbon Dioxide 36 mmol/L (22-30); Chloride 91 mmol/L (98-107); Estimated Glomerular Filt Rate 55; Glucose 157 mg/dL (65-110); INR 1.1; Prothrombin Time 14.9 Seconds (11.1-14.7); Sodium 139 mmol/L (137-145)
[2023-11-09] MEDS: SODIUM CHLORIDE 0.9% IV 1,000 ML 999 ML IV CONT (13:43)
[2023-11-09 13:50] LABS: Alveolar/Arterial O2 Gradient 184.3 mmHg; Base Excess ABG 7.3 mEq/l (+/-2.0); Carboxyhemoglobin 1.3 % THb (0-2.0); Fractional Inspired Oxygen 40 %; HCO3 ABG 31.3 mEq/l (22.0-26.0); Methemoglobin ABG 0.3 %THb (0-1.5); Oxygen Content ABG 16.1 %vol (16.0-22.0); Oxygen Saturation ABG 89.8 % (95.0-100.0); PCO2 ABG 41.8 mmHg (35.0-45.0); PO2 ABG 52.8 mmHg (80.0-100.0); PO2 FiO2 Ratio Arterial Blood 1.32 %; Reduced Hemoglobin 12.6 %THb (0-5.0); Total Hemoglobin 13.4 g/dL (12.0-18.0); pH ABG 7.492 (7.350-7.450)
[2023-11-09 13:54] LABS: Device NASAL CANNULA; Modified Allen's Test Pass; Oxyhemoglobin 85.8 % THb (90.0-100.0); Site Drawn LEFT RADIAL
[2023-11-09 14:09] LABS: Influenza A QL RT-PCR Negative (Negative); Influenza B QL RT-PCR Negative (Negative); RSV RNA, RT-PCR Negative (Negative); SARS-CoV-2 RNA PCR Negative (Negative)
--- NOTE | 2023-11-09 14:25 | PC.NURSE ---
1256 called [facility] and spoke with Lupe RN. Lupe stated that patient baseline is a/o x 2-3 and blood sugars have been trending high. patient was 70% on room air for the facility and they placed her on 10L NC to get her saturations to measure 95% patient began coughing up phlegm has been pale and diaphoretic for the past two days according to the facility and today patient was asking to go to the ER. patient has no family listed on file with the assisted, and makes her own medical decisions. patient does not get out of bed at the facility
[2023-11-09 15:02] LABS: Appearance Urine Cloudy (Clear); Bacteria Urine 4+ /hpf; Bilirubin Urine Negative (Negative); Blood Urine 3+ (Negative); Color Urine Dark Yellow (Yellow); Glucose Urine UA Negative (Negative); Hyaline Casts Urine Present /lpf; Ketones Urine Trace mg/dL (Negative); Leukocyte Esterase Ur 3+ LEU/UL (Negative); Need Manual Microscopic Reviewed; Nitrate Urine Negative (Negative); Non Pathogenic Casts >20; Protein Urine Negative (Negative); Specific Grav Ur 1.019 (1.001-1.035); Squamous Epithelial Cell Urine Few /hpf (Few); WBC Clumps Urine Present /HPF; pH Urine 5.5 (5.0-9.0)
[2023-11-09 15:12] LABS: Add Urine Microscopic? YES
--- NOTE | 2023-11-09 15:52 | PC.NURSE ---
1552- spoke with Sherly from [facility] who wanted an update on the patient. questions were answered.
--- NOTE | 2023-11-09 16:14 | ED.AMS ---
HPI - Altered Mental Status General Chief Complaint: Altered Mental Status Stated Complaint: AMS Time Seen by Provider: 11/09/23 13:12 Source: EMS and RN notes reviewed Mode of arrival: EMS Limitations: altered mental status History of Present Illness HPI narrative: 68-year-old with a history of hypertension, CAD, dementia, depression, diabetes was [facility] in from [facility] with altered mental status . Patient is found to be more lethargic this morning and was also on the chart. No history can be obtained from the patient MD complaint: decreased responsiveness Onset (ago): day(s) (1) Severity: moderate Related Data Allergies Allergy/AdvReac Type Severity Reaction Status Date / Time No Known Allergies Allergy Verified 01/29/22 08:13 Review of Systems Review of Systems: ROS unobtainable: Yes unobtainable due to mental status PMFSH Past Medical History Medical History History of anxiety History of asthma History of coronary artery disease History of depression History of diabetes mellitus History of hypertension History of hypothyroidism RLS (restless legs syndrome) Tobacco abuse Surgical History Surgical History History of cardiac catheterization History of cholecystectomy History of hysterectomy History of inguinal hernia repair Family History Family History Father Family history of premature coronary heart disease, Onset Age: 69 Patient's father is Mother Family history of malignant neoplasm of breast in first degree relative Social History Social History Social History: Lives at home with . On disability. No longer drives and does not leave the home. Designates , Ant, as surrogate decision maker. Full code. Not established with PCP. Smoking packs per day: 1 Smoking cigarettes per day: 20.0 Years smoked: 30 Smoking pack-years: 30.00 Smoking status: Current every day smoker Tobacco type: cigarettes Alcohol intake: never Substance use type: does not use Spiritual care concerns: No Exam Narrative: GENERAL: ill-appearing, well-nourished, and in no acute distress. HEAD: Normocephalic, atraumatic. EYES: PERRLA and EOMI. ENT: Nares clear, no rhinorrhea or epistaxis. Mucous membranes moist. NECK: Supple. CHEST: Clear to auscultation. No respiratory distress. HEART: Regular rate and rhythm. No murmur heard. Normal peripheral pulses. ABDOMEN: Soft, nontender, nondistended, normal active bowel sounds. EXTREMITIES: Normal range of motion. No edema. SKIN: Warm, dry, no rash. NEURO: No focal deficits. Alert . PSYCH: Normal mood and affect. Course Course Emergency Course: I have reviewed her lab work, CT findings. She is arousable. Patient is mildly that we withdraw mask SpO2 is much improved. Is admitted to hospital. Vital Signs Vital signs: Vital Signs Temperature 36.9 C 11/09/23 12:43 Pulse Rate 82 11/09/23 12:43 Respiratory Rate 22 H 11/09/23 12:43 Blood Pressure 115/82 11/09/23 12:43 Pulse Oximetry 88 L 11/09/23 12:43 Oxygen Delivery Nasal Cannula 11/09/23 12:43 Oxygen Flow Rate 4 11/09/23 12:43 Temperature 36.9 C 11/09/23 12:43 Pulse Rate 66 11/09/23 16:01 Respiratory Rate 21 H 11/09/23 16:01 Blood Pressure 116/50 L 11/09/23 16:01 Pulse Oximetry 95 11/09/23 16:01 Oxygen Delivery Venturi Mask 11/09/23 14:00 Oxygen Flow Rate 15 11/09/23 14:00 Fraction of Inspired Oxygen 50 11/09/23 14:00 MDM - Altered Mental Status Differential Diagnosis Differential diagnosis: Likely altered mental status, hyponatremia and sepsis Medical Records Attestation: I reviewed the patient's medical records. Lab Data Attestation: I reviewed the patient's lab results. 11/09/23 13:16
[2023-11-09 16:22] LABS: Reflex Lactic Acid Yes or No Add Lactic
[2023-11-09 16:54] LABS: Lactic Acid 1.8 mmol/L (0.7-2.0)
--- NOTE | 2023-11-09 17:18 | ADMGEN ---
This patient, Lili Acosta, was admitted to Medical Room 340-01. Patient/family oriented to hospital policies and general routines including ID bracelet, bed and alarms, visiting hours, pain management, procedures, bathroom and other care routines, personal items, smoking policy, room service/diet, and visiting hours. Information on how to activate the Rapid Response Team has been discussed. Patient/Family are encouraged to report perceived risks to care and to ask questions if they do not understand what they are told or what they should do.
--- NOTE | 2023-11-09 17:25 | PM.IMHP ---
H&P: HPI History of Present Illness Date/Time: 11/09/23 17:25 Chief Complaint: Altered Mental Status Narrative: 68 y/o F presents here with AMS with PMH of CAD, DM, HTN, hypothyroidism, RLS, and dementia. The patient presents here from [facility] via EMS for further evaluation of altered mental status. Patient arrived responsive to verbal only. Patient is orientated x2-3 at baseline per [facility] staff. Yesterday, patient became cold/clammy. BS was checked and was 419. This morning she was shouting in pain, appeared uncomfortable, and lethargic. Vital signs taken this morning showed new hypoxia, no baseline O2 requirement. No fever. Staff reports the patient has had diarrhea for the last 2 days (today being day 3), no christiana blood or dark/tarry appearance reported. Patient reports diarrhea 3-4 times per day over the last 3-4 days. Accompanied by abdominal pain that started 3-4 days, constant, diffuse, radiation into lower back, and no aggravating/alleviating factors. Per primary nurse at [facility], she has been eating less, not as interactive, and not participating in care. Nutrition has been poor - refusing to eat/drink and has only been drinking apple juice. Prior to staying at [facility] she was at [facility]. Transferred to [facility] on 10/18. Per staff, no emergency contact listed and patient does not receive visitors. Initial VS at presentation: 98.5? F, HR 82, RR 22, 115/82, and 88% on 4L nasal cannula, currently 95% on Venturi mask at 15L. ED workup showed: WBC 15.7, no anemia, potassium 3.0, creatinine 1.0 and GFR 55, glucose 157, lactic 3.6, CRP 7.5, and UA consistent with UTI. CXR showed left basilar airspace disease. Head CT showed age-related changes in no acute intracranial process. CT of the abdomen/pelvis showed bronchial wall thickening, mucous plugging, and associated patchy ground-glass opacities/consolidation in the bilateral lower lobes consistent with pneumonia, fluid in the distal colon consistent with diarrhea, chronic nonspecific splenomegaly, and diffuse hepatic steatosis. Review of Systems Review of Systems: Limited All systems reviewed & are unremarkable except as noted in HPI and below PMFSH Past Medical History Medical History (Updated 06/13/24 @ 17:44 by Ángela Holm APRN) Diabetes mellitus History of anxiety History of asthma History of coronary artery disease History of depression History of hypertension Hypothyroidism RLS (restless legs syndrome) Tobacco abuse Vitamin B12 deficiency Surgical History Surgical History History of cardiac catheterization History of cholecystectomy History of hysterectomy History of inguinal hernia repair Family History Family History Father Family history of premature coronary heart disease, Onset Age: 69 Patient's father is Mother Family history of malignant neoplasm of breast in first degree relative Social History Social History Social History: Lives at home with . On disability. No longer drives and does not leave the home. Designates , Ant, as surrogate decision maker. Full code. Not established with PCP. Smoking packs per day: 1 Smoking cigarettes per day: 20.0 Years smoked: 30 Smoking pack-years: 30.00 Smoking status: Current every day smoker Alcohol intake: never Substance use type: does not use Spiritual care concerns: No Meds Home Medications and Allergies Home Medications Medication Instructions Recorded Confirmed Type aspirin 81 mg tablet,delayed 81 mg PO QAM #30 tabs 02/02/22 11/09/23 Rx release cyanocobalamin (vitamin B-12) 1,000 mcg PO QAM #30 tabs 02/02/22 11/09/23 Rx 1,000 mcg tablet (Vitamin B-12) magnesium oxide 400 mg (241.3 mg 400 mg PO DAILY #30 tabs 02/02/22 11/09/23 Rx magnesium) tablet po
--- NOTE | 2023-11-09 17:51 | PC.NURSE ---
Pt not keeping oxygen mask on. Pt educated on the importance of leaving it on.
[2023-11-09] MEDS: POTASSIUM CHLORIDE INJ 40 MEQ in SODIUM CHLORIDE 0.9% IV 500 ML 130 MEQ IVPB (18:12)
[2023-11-09] MEDS: SODIUM CHLORIDE 0.9% IV 1,000 ML 75 ML IV CONT (18:12)
[2023-11-09] MEDS: AZITHROMYCIN 500 MG/NS 250 ML 500 MG/250 ML BAG 250 MG IVPB (18:12)
--- NOTE | 2023-11-09 18:22 | PC.NURSE ---
Pt poor historian. Confused at times. No next of kin, spouse, children or friends to be contacted. Information from snf paperwork only.
[2023-11-09] MEDS: IPRATROPIUM 0.5 MG/ALBUTEROL SULFATE 2.5 MG AMPUL.NEB 3 ML INHALATION (20:19)
[2023-11-09 22:19] LABS: MRSA (PCR) DETECTED (NOT DETECTE)
[2023-11-09 22:35] LABS: Anion Gap 12 mmol/L (4-12); Blood Urea Nitrogen 37 mg/dL (7-17); Calcium 8.5 mg/dL (8.4-10.2); Carbon Dioxide 28 mmol/L (22-30); Chloride 94 mmol/L (98-107); Estimated CRCL calculation 75 ml/min; Estimated Glomerular Filt Rate > 60; Glucose 372 mg/dL (65-110); Potassium 3.6 mmol/L (3.4-5.0); Sodium 134 mmol/L (137-145)
[2023-11-09 23:13] LABS: Procalcitonin 0.2 ng/mL
[2023-11-10] VITALS (17 sets, daily range): BP systolic 138–153; BP diastolic 46–81; PULSE 68–89; RESP 16–20; TEMP 35.9–36.3; O2SAT 87–99
[2023-11-10] MEDS: INSULIN ASPART (*BKC) 100 UNITS/ML SUB-Q ×3 (00:37→12:16)
[2023-11-10] MEDS: VANCOMYCIN 1,250 MG/NS 250 ML 1,250 MG/250 ML BAG 166.67 MG IVPB (01:10)
[2023-11-10] MEDS: VANCOMYCIN 1,000 MG/NS 250 ML 1,000 MG/250 ML BAG 250 MG IVPB (02:55)
[2023-11-10 06:04] LABS: Basophils Absolute Auto 0.1 K/mm3 (0.0-0.1); Basophils Percent Auto 0.4 % (0.2-1.2); Eosinophils Percent Auto 0.1 % (0-4.4); Hematocrit 38.4 % (37.0-47.0); Hemoglobin 12.1 g/dL (12.0-15.0); Immature Granulocyte Absolute 0.44 K/mm3 (0.00-0.031); Immature Granulocyte Percent A 3.1 % (0-0.5); Lymphocytes Absolute Auto 2.42 K/mm3 (0.9-3.2); Lymphocytes Percent Auto 17.1 % (18.3-44.2); Mean Corpuscular HGB Conc 31.5 g/dl (32-36); Mean Corpuscular Hemoglobin 28.9 pg (26-34); Mean Corpuscular Volume 91.6 fl (80-100); Mean Platelet Volume 9.3 fl (7.4-10.4); Monocytes Absolute Auto 0.8 K/mm3 (0.1-0.6); Monocytes Percent Auto 5.8 % (2.6-8.5); Neutrophils Absolute Auto 10.4 K/mm3 (1.3-6.7); Neutrophils Percent Auto 73.5 % (45.5-73.1); Platelet Count Result 251 k/mm3 (150-375); Red Blood Count 4.19 M/mm3 (4.2-5.4); Red Cell Distribution Width 14.8 % (11.5-14.5); White Blood Count 14.2 K/mm3 (4.5-10.0)
[2023-11-10 06:28] LABS: Anion Gap 9 mmol/L (4-12); Blood Urea Nitrogen 26 mg/dL (7-17); Calcium 8.6 mg/dL (8.4-10.2); Carbon Dioxide 33 mmol/L (22-30); Chloride 97 mmol/L (98-107); Estimated CRCL calculation 75 ml/min; Estimated Glomerular Filt Rate > 60; Glucose 278 mg/dL (65-110); Potassium 3.3 mmol/L (3.4-5.0); Sodium 139 mmol/L (137-145)
[2023-11-10] MEDS: busPIRone HCL 5 MG TABLET PO ×2 (08:01→21:02)
[2023-11-10] MEDS: ASPIRIN 81 MG ENTERIC TABLET PO (08:01)
[2023-11-10] MEDS: FUROSEMIDE 20 MG TABLET PO (08:02)
[2023-11-10] MEDS: CYANOCOBALAMIN 1,000 MCG TABLET 1000 MCG PO (08:02)
[2023-11-10] MEDS: busPIRone HCL 2.5 MG TABLET PO ×2 (08:02→21:02)
[2023-11-10] MEDS: ESCITALOPRAM OXALATE 10 MG TABLET 20 MG PO (08:02)
[2023-11-10] MEDS: MAGNESIUM OXIDE 400 MG TABLET PO (08:03)
[2023-11-10] MEDS: metFORMIN HCL 500 MG TABLET 1000 MG PO ×2 (08:03→17:05)
[2023-11-10] MEDS: HYDROcodone/acetaminophen (*CRX) 7.5-325 MG TABLET 1 TAB PO ×3 (08:03→17:06)
[2023-11-10] MEDS: metOLazone 2.5 MG TABLET PO (08:03)
[2023-11-10] MEDS: glipiZIDE 2.5 MG TABLET PO ×2 (08:03→17:06)
[2023-11-10] MEDS: GABAPENTIN 300 MG CAPSULE 600 MG PO ×3 (08:03→17:06)
[2023-11-10] MEDS: MUPIROCIN 2% OINT 22 GM TUBE 1 APPLIC EACH NARE ×2 (08:04→21:48)
[2023-11-10] MEDS: QUEtiapine FUMARATE 25 MG TABLET PO ×2 (08:04→17:06)
[2023-11-10] MEDS: POTASSIUM CHLORIDE 20 MEQ ER TABLET PO (08:04)
[2023-11-10] MEDS: rOPINIRole HCL 1 MG TABLET 3 MG PO ×3 (08:04→17:05)
[2023-11-10] MEDS: IPRATROPIUM 0.5 MG/ALBUTEROL SULFATE 2.5 MG AMPUL.NEB 3 ML INHALATION ×3 (08:50→19:51)
[2023-11-10 08:55] LABS: Glucose Point of Care 386 mg/dl (65-105)
[2023-11-10 09:55] LABS: Glucose Point of Care 399 mg/dl (65-105)
[2023-11-10] MEDS: SODIUM CHLORIDE 0.9% IV 1,000 ML 75 ML IV CONT (11:35)
[2023-11-10 12:12] LABS: Glucose Point of Care 331 mg/dl (65-105)
--- NOTE | 2023-11-10 14:54 | PM.IMPN ---
Progress Note: A&P Assessment and Plan (1) Sepsis: Code(s): A41.9 - Sepsis, unspecified organism Status: Acute Assessment and Plan: 11/09/23 - meets SIRS criteria: RR, WBC. BP borderline hypotensive. - lactic acid: 3.6 -> 1.8 - lactic elevated, procalcitonin added - given 1L bolus and started on 75 mL/hr - suspected source: pneumonia, UTI - started on azithromycin and ceftriaxone on 11/08. MRSA PCR positive, vancomycin added on 11/08. - blood cultures drawn on 11/08 - UA consistent with UTI, see below - CXR: Left basilar airspace disease may represent atelectasis or pneumonia. - CT abd/pelvis: 1. Bronchial wall thickening, mucous plugging and associated patchy groundglass opacities and consolidation in the bilateral lower lobes consistent with pneumonia. 2. Fluid in the distal colon consistent with diarrhea. No other acute intra-abdominal/pelvic process. 3. Diffuse hepatic steatosis and chronic nonspecific splenomegaly which could be related to body habitus. - monitor hemodynamics 11/10/23: Blood in urine cultures are pending Continue azithromycin, vancomycin, and Rocephin Vital signs are stable, she is afebrile, she is currently on room (2) Acute respiratory failure with hypoxia: Code(s): J96.01 - Acute respiratory failure with hypoxia Status: Acute Assessment and Plan: 11/10/23: Patient requiring oxygen due to O2 saturation of 85-88% initially Likely due to sepsis and known pneumonia Currently on room air now. (3) Pneumonia: Qualifiers: Laterality: bilateral Lung location: unspecified part of lung Pneumonia type: due to unspecified organism Qualified Code(s): J18.9 - Pneumonia, unspecified organism Code(s): J18.9 - Pneumonia, unspecified organism Status: Acute Assessment and Plan: 11/09/23: - CXR: Left basilar airspace disease may represent atelectasis or pneumonia. - CT abd/pelvis: Bronchial wall thickening, mucous plugging and associated patchy groundglass opacities and consolidation in the bilateral lower lobes consistent with pneumonia. - risk factors: lives at [facility] - started on CAP tx: azithromycin and ceftriaxone on 11/08, added vancomycin on 11/08 - MRSA PCR+ - Viral PCR negative - sputum culture - currently requiring supplemental O2, HFNC at 10L 11/10/23: Continue azithromycin, vancomycin, and Rocephin She is MRSA positive Blood in urine cultures are pending (4) UTI (urinary tract infection): Code(s): N39.0 - Urinary tract infection, site not specified Status: Acute Assessment and Plan: 11/09/23 - UA: Cloudy, trace ketones, 3+ blood, 3+ leuks, 11-20 RBC, 11-20 WBC, WBC clumps present, few epithelial cells, 4+ bacteria. - UC pending, obtained on 11/08 - previous micro reviewed, no resistances - started on Ceftriaxone on 11/0811/10/23: Continue Rocephin Urine cultures pending (5) Diarrhea: Code(s): R19.7 - Diarrhea, unspecified Status: Acute Assessment and Plan: 11/09/23: - CT abdomen/pelvis: Fluid in the distal colon consistent with diarrhea. No other acute intra-abdominal/pelvic process. - per report, has been only drinking apple juice for the past 2 days which may be cause - consult to telecommunications engineer for supplemental nutrition - IV fluids - monitor I&Os 11/10/23: Continue to monitor, no change to current treatment (6) Hypokalemia: Code(s): E87.6 - Hypokalemia Status: Acute Assessment and Plan: 11/09/23: - K 3.0 - replete with 40 IVPB of KCl, recheck - suspect this is secondary to diarrhea x3 days - trend chemistries - telemetry monitoring 11/10/23: Potassium 3.3 Will give 20 IV piggyback of KCl Continue to trend Continue telemetry monitoring (7) Altered mental status: Qualifiers: Altered mental status type: unspecified Qualified Code(s): R41.82 - Altered mental status, unspecified Code(s): R41.82 - Altered mental status, uns
[2023-11-10] MEDS: KCL 20 MEQ/SW 100 ML 100 ML 50 MEQ IVPB (15:53)
[2023-11-10 17:45] LABS: Glucose Point of Care 158 mg/dl (65-105)
[2023-11-10] MEDS: VANCOMYCIN 1,500 MG/NS 500 ML 1,500 MG/500 ML BAG 250 MG IVPB (18:35)
[2023-11-10 19:05] LABS: Hemoglobin A1C 9.1 % (<5.7)
[2023-11-10] MEDS: INSULIN GLARGINE (*BKC) 100 UNITS/ML 10 UNITS SUB-Q (21:02)
[2023-11-10] MEDS: ATORVASTATIN 20 MG TABLET PO (21:02)
[2023-11-10] MEDS: traZODone HCL 25 MG TABLET PO (21:02)
[2023-11-11] VITALS (16 sets, daily range): BP systolic 112–150; BP diastolic 48–63; PULSE 64–84; RESP 18–20; TEMP 35.9–36.7; O2SAT 96–100
[2023-11-11] MEDS: DOXYCYCLINE 100 MG/NS 100 ML 100 MG/100 ML BAG IVPB ×3 (00:45→20:52)
[2023-11-11] MEDS: SODIUM CHLORIDE 0.9% IV 1,000 ML 75 ML IV CONT (01:00)
[2023-11-11] MEDS: IPRATROPIUM 0.5 MG/ALBUTEROL SULFATE 2.5 MG AMPUL.NEB 3 ML INHALATION ×3 (02:01→20:18)
[2023-11-11] MEDS: LOPERAMIDE HCL 2 MG CAPSULE 4 MG PO (03:02)
[2023-11-11] MEDS: ACETAMINOPHEN 325 MG TABLET 650 MG PO (04:40)
[2023-11-11 05:37] LABS: Hematocrit 37.2 % (37.0-47.0); Hemoglobin 11.7 g/dL (12.0-15.0); Mean Corpuscular HGB Conc 31.5 g/dl (32-36); Mean Corpuscular Volume 92.1 fl (80-100); Mean Platelet Volume 9.1 fl (7.4-10.4); Platelet Count Result 164 k/mm3 (150-375); Red Blood Count 4.04 M/mm3 (4.2-5.4); Red Cell Distribution Width 14.6 % (11.5-14.5); White Blood Count 11.2 K/mm3 (4.5-10.0)
[2023-11-11 05:37] LABS: Glucose Point of Care 147 mg/dl (65-105)
[2023-11-11 05:46] LABS: Estimated CRCL calculation 86 ml/min; Estimated Glomerular Filt Rate > 60
[2023-11-11] MEDS: ENOXAPARIN 40 MG/0.4 ML SYRINGE SUB-Q (08:51)
[2023-11-11] MEDS: VANCOMYCIN 1,500 MG/NS 500 ML 1,500 MG/500 ML BAG 250 MG IVPB (08:51)
[2023-11-11] MEDS: QUEtiapine FUMARATE 25 MG TABLET PO ×2 (08:53→17:42)
[2023-11-11] MEDS: FUROSEMIDE 20 MG TABLET PO (08:53)
[2023-11-11] MEDS: busPIRone HCL 2.5 MG TABLET PO ×2 (08:53→21:01)
[2023-11-11] MEDS: MAGNESIUM OXIDE 400 MG TABLET PO (08:53)
[2023-11-11] MEDS: CYANOCOBALAMIN 1,000 MCG TABLET 1000 MCG PO (08:53)
[2023-11-11] MEDS: glipiZIDE 2.5 MG TABLET PO ×2 (08:53→17:41)
[2023-11-11] MEDS: ESCITALOPRAM OXALATE 10 MG TABLET 20 MG PO (08:53)
[2023-11-11] MEDS: ASPIRIN 81 MG ENTERIC TABLET PO (08:53)
[2023-11-11] MEDS: busPIRone HCL 5 MG TABLET PO ×2 (08:53→21:01)
[2023-11-11] MEDS: GABAPENTIN 300 MG CAPSULE 600 MG PO ×3 (08:53→17:42)
[2023-11-11] MEDS: metFORMIN HCL 500 MG TABLET 1000 MG PO ×2 (08:54→17:41)
[2023-11-11] MEDS: rOPINIRole HCL 1 MG TABLET 3 MG PO ×3 (08:54→17:41)
[2023-11-11] MEDS: HYDROcodone/acetaminophen (*CRX) 7.5-325 MG TABLET 1 TAB PO ×3 (08:54→17:41)
[2023-11-11] MEDS: POTASSIUM CHLORIDE 20 MEQ ER TABLET PO (08:54)
[2023-11-11] MEDS: MUPIROCIN 2% OINT 22 GM TUBE 1 APPLIC EACH NARE ×2 (08:55→21:02)
[2023-11-11 09:19] LABS: Glucose Point of Care 148 mg/dl (65-105)
--- NOTE | 2023-11-11 09:48 | P.PNIM_ITS ---
Progress Note: A&P Assessment and Plan (1) Sepsis: Code(s): A41.9 - Sepsis, unspecified organism Status: Acute Assessment and Plan: 11/09/23 - meets SIRS criteria: RR, WBC. BP borderline hypotensive. - lactic acid: 3.6 -> 1.8 - lactic elevated, procalcitonin added - given 1L bolus and started on 75 mL/hr - suspected source: pneumonia, UTI - started on azithromycin and ceftriaxone on 11/08. MRSA PCR positive, vancomycin added on 11/08. - blood cultures drawn on 11/08 - UA consistent with UTI, see below - CXR: Left basilar airspace disease may represent atelectasis or pneumonia. - CT abd/pelvis: 1. Bronchial wall thickening, mucous plugging and associated patchy groundglass opacities and consolidation in the bilateral lower lobes consistent with pneumonia. 2. Fluid in the distal colon consistent with diarrhea. No other acute intra- abdominal/pelvic process. 3. Diffuse hepatic steatosis and chronic nonspecific splenomegaly which could be related to body habitus. - monitor hemodynamics 11/10/23: * Blood in urine cultures are pending * Continue azithromycin, vancomycin, and Rocephin * Vital signs are stable, she is afebrile, she is currently on room 11/11/23: * Urine culture showing no growth on preliminary read * blood culture showing Gram-positive cocci clusters in 1/2 vials which is likely contaminant * continue azithromycin vancomycin and Rocephin (2) Acute respiratory failure with hypoxia: Code(s): J96.01 - Acute respiratory failure with hypoxia Status: Acute Assessment and Plan: 11/10/23: * Patient requiring oxygen due to O2 saturation of 85-88% initially * Likely due to sepsis and known pneumonia 11/11/23: * patient currently 2 L nasal cannula oxygen chest 97-100% * continue to wean O2 for a saturation greater than 92% (3) Pneumonia: Qualifiers: Laterality: bilateral Lung location: unspecified part of lung Pneumonia type: due to unspecified organism Qualified Code(s): J18.9 - Pneumonia, unspecified organism Code(s): J18.9 - Pneumonia, unspecified organism Status: Acute Assessment and Plan: 11/09/23: - CXR: Left basilar airspace disease may represent atelectasis or pneumonia. - CT abd/pelvis: Bronchial wall thickening, mucous plugging and associated patchy groundglass opacities and consolidation in the bilateral lower lobes consistent with pneumonia. - risk factors: lives at [facility] - started on CAP tx: azithromycin and ceftriaxone on 11/08, added vancomycin on 11/08 - MRSA PCR+ - Viral PCR negative - sputum culture - currently requiring supplemental O2, HFNC at 10L 11/10/23: * Continue azithromycin, vancomycin, and Rocephin * She is MRSA positive * Blood in urine cultures are pending 11/11/23: * continue antibiotics * blood culture showing Gram-positive cocci in clusters in 1/2 vials which was likely a contaminant (4) UTI (urinary tract infection): Code(s): N39.0 - Urinary tract infection, site not specified Status: Acute Assessment and Plan: 11/09/23 - UA: Cloudy, trace ketones, 3+ blood, 3+ leuks, 11-20 RBC, 11-20 WBC, WBC clumps present, few epithelial cells, 4+ bacteria. - UC pending, obtained on 11/08 - previous micro reviewed, no resistances - started on Ceftriaxone on 11/0811/10/23: * Continue Rocephin * Urine cultures pending 11/11/23: * urine culture showing no growth on preliminary read * will continue Rocephin until final read (5) Diarrhea: Code(s): R19.7 - Diarrhea, unspecified
--- NOTE | 2023-11-11 09:48 | PM.IMPN ---
Progress Note: A&P Assessment and Plan (1) Sepsis: Code(s): A41.9 - Sepsis, unspecified organism Status: Acute Assessment and Plan: 11/09/23 - meets SIRS criteria: RR, WBC. BP borderline hypotensive. - lactic acid: 3.6 -> 1.8 - lactic elevated, procalcitonin added - given 1L bolus and started on 75 mL/hr - suspected source: pneumonia, UTI - started on azithromycin and ceftriaxone on 11/08. MRSA PCR positive, vancomycin added on 11/08. - blood cultures drawn on 11/08 - UA consistent with UTI, see below - CXR: Left basilar airspace disease may represent atelectasis or pneumonia. - CT abd/pelvis: 1. Bronchial wall thickening, mucous plugging and associated patchy groundglass opacities and consolidation in the bilateral lower lobes consistent with pneumonia. 2. Fluid in the distal colon consistent with diarrhea. No other acute intra-abdominal/pelvic process. 3. Diffuse hepatic steatosis and chronic nonspecific splenomegaly which could be related to body habitus. - monitor hemodynamics 11/10/23: Blood in urine cultures are pending Continue azithromycin, vancomycin, and Rocephin Vital signs are stable, she is afebrile, she is currently on room 11/11/23: Urine culture showing no growth on preliminary read blood culture showing Gram-positive cocci clusters in 1/2 vials which is likely contaminant continue azithromycin vancomycin and Rocephin (2) Acute respiratory failure with hypoxia: Code(s): J96.01 - Acute respiratory failure with hypoxia Status: Acute Assessment and Plan: 11/10/23: Patient requiring oxygen due to O2 saturation of 85-88% initially Likely due to sepsis and known pneumonia 11/11/23: patient currently 2 L nasal cannula oxygen chest 97-100% continue to wean O2 for a saturation greater than 92% (3) Pneumonia: Qualifiers: Laterality: bilateral Lung location: unspecified part of lung Pneumonia type: due to unspecified organism Qualified Code(s): J18.9 - Pneumonia, unspecified organism Code(s): J18.9 - Pneumonia, unspecified organism Status: Acute Assessment and Plan: 11/09/23: - CXR: Left basilar airspace disease may represent atelectasis or pneumonia. - CT abd/pelvis: Bronchial wall thickening, mucous plugging and associated patchy groundglass opacities and consolidation in the bilateral lower lobes consistent with pneumonia. - risk factors: lives at [facility] - started on CAP tx: azithromycin and ceftriaxone on 11/08, added vancomycin on 11/08 - MRSA PCR+ - Viral PCR negative - sputum culture - currently requiring supplemental O2, HFNC at 10L 11/10/23: Continue azithromycin, vancomycin, and Rocephin She is MRSA positive Blood in urine cultures are pending 11/11/23: continue antibiotics blood culture showing Gram-positive cocci in clusters in 1/2 vials which was likely a contaminant (4) UTI (urinary tract infection): Code(s): N39.0 - Urinary tract infection, site not specified Status: Acute Assessment and Plan: 11/09/23 - UA: Cloudy, trace ketones, 3+ blood, 3+ leuks, 11-20 RBC, 11-20 WBC, WBC clumps present, few epithelial cells, 4+ bacteria. - UC pending, obtained on 11/08 - previous micro reviewed, no resistances - started on Ceftriaxone on 11/0811/10/23: Continue Rocephin Urine cultures pending 11/11/23: urine culture showing no growth on preliminary read will continue Rocephin until final read (5) Diarrhea: Code(s): R19.7 - Diarrhea, unspecified Status: Acute Assessment and Plan: 11/09/23: - CT abdomen/pelvis: Fluid in the distal colon consistent with diarrhea. No other acute intra-abdominal/pelvic process. - per report, has been only drinking apple juice for the past 2 days which may be cause - consult to for supplemental nutrition - IV fluids - monitor I&Os 11/10/23: Continue to monitor, no change to current treatment 11/11/23: no change to current t
[2023-11-11 10:32] LABS: Alanine Aminotransferase 27 U/L (6-35); Albumin Level 3.5 g/dL (3.5-5.1); Alkaline Phosphatase 128 U/L (38-126); Anion Gap 7 mmol/L (4-12); Aspartate Amino Transferase 73 U/L (14-36); Bilirubin,Total 0.4 mg/dL (0.2-1.3); Blood Urea Nitrogen 14 mg/dL (7-17); Calcium 8.5 mg/dL (8.4-10.2); Carbon Dioxide 31 mmol/L (22-30); Chloride 99 mmol/L (98-107); Estimated CRCL calculation 86 ml/min; Estimated Glomerular Filt Rate > 60; Glucose 152 mg/dL (65-110); Potassium 3.3 mmol/L (3.4-5.0); Sodium 137 mmol/L (137-145)
[2023-11-11 12:16] LABS: Glucose Point of Care 141 mg/dl (65-105)
[2023-11-11] MEDS: POTASSIUM CHLORIDE 20 MEQ PACKET (FOR LIQUID) PO (17:41)
[2023-11-11 17:55] LABS: Glucose Point of Care 107 mg/dl (65-105)
[2023-11-11 19:31] LABS: Vancomycin Trough 12.9 ug/mL (10.0-20.0)
[2023-11-11 20:09] LABS: Alanine Aminotransferase 26 U/L (6-35); Albumin Level 3.1 g/dL (3.5-5.1); Alkaline Phosphatase 105 U/L (38-126); Anion Gap 8 mmol/L (4-12); Aspartate Amino Transferase 88 U/L (14-36); Bilirubin,Total 0.3 mg/dL (0.2-1.3); Blood Urea Nitrogen 12 mg/dL (7-17); Calcium 8.4 mg/dL (8.4-10.2); Carbon Dioxide 30 mmol/L (22-30); Chloride 101 mmol/L (98-107); Estimated CRCL calculation 75 ml/min; Estimated Glomerular Filt Rate > 60; Glucose 126 mg/dL (65-110); Potassium 3.2 mmol/L (3.4-5.0); Sodium 139 mmol/L (137-145)
[2023-11-11] MEDS: VANCOMYCIN 1,750 MG/NS 500 ML 1,750 MG/500 ML BAG 250 MG IVPB (20:49)
[2023-11-11] MEDS: traZODone HCL 25 MG TABLET PO (21:01)
[2023-11-11] MEDS: ATORVASTATIN 20 MG TABLET PO (21:01)
[2023-11-11] MEDS: INSULIN GLARGINE (*BKC) 100 UNITS/ML 10 UNITS SUB-Q (21:05)
[2023-11-11 21:46] LABS: Glucose Point of Care 111 mg/dl (65-105)
[2023-11-12] VITALS (12 sets, daily range): BP systolic 123–139; BP diastolic 56–58; PULSE 74–81; RESP 18–20; TEMP 36–36.8; O2SAT 94–96
[2023-11-12] MEDS: IPRATROPIUM 0.5 MG/ALBUTEROL SULFATE 2.5 MG AMPUL.NEB 3 ML INHALATION ×3 (02:29→13:04)
[2023-11-12 05:32] LABS: Hematocrit 32.8 % (37.0-47.0); Hemoglobin 10.2 g/dL (12.0-15.0); Mean Corpuscular HGB Conc 31.1 g/dl (32-36); Mean Corpuscular Hemoglobin 29.2 pg (26-34); Mean Platelet Volume 9.4 fl (7.4-10.4); Platelet Count Result 115 k/mm3 (150-375); Red Blood Count 3.49 M/mm3 (4.2-5.4); Red Cell Distribution Width 14.5 % (11.5-14.5); White Blood Count 8.8 K/mm3 (4.5-10.0)
[2023-11-12 05:52] LABS: Estimated CRCL calculation 102 ml/min; Estimated Glomerular Filt Rate > 60
[2023-11-12] MEDS: ACETAMINOPHEN 325 MG TABLET 650 MG PO (06:55)
[2023-11-12] MEDS: ENOXAPARIN 40 MG/0.4 ML SYRINGE SUB-Q (08:41)
[2023-11-12] MEDS: metFORMIN HCL 500 MG TABLET 1000 MG PO (08:42)
[2023-11-12] MEDS: HYDROcodone/acetaminophen (*CRX) 7.5-325 MG TABLET 1 TAB PO ×2 (08:42→12:16)
[2023-11-12] MEDS: busPIRone HCL 5 MG TABLET PO (08:42)
[2023-11-12] MEDS: GABAPENTIN 300 MG CAPSULE 600 MG PO ×2 (08:42→12:16)
[2023-11-12] MEDS: rOPINIRole HCL 1 MG TABLET 3 MG PO ×2 (08:42→12:17)
[2023-11-12] MEDS: ASPIRIN 81 MG ENTERIC TABLET PO (08:42)
[2023-11-12] MEDS: QUEtiapine FUMARATE 25 MG TABLET PO (08:42)
[2023-11-12] MEDS: CYANOCOBALAMIN 1,000 MCG TABLET 1000 MCG PO (08:43)
[2023-11-12] MEDS: MAGNESIUM OXIDE 400 MG TABLET PO (08:43)
[2023-11-12] MEDS: busPIRone HCL 2.5 MG TABLET PO (08:43)
[2023-11-12] MEDS: POTASSIUM CHLORIDE 20 MEQ ER TABLET PO (08:43)
[2023-11-12] MEDS: metOLazone 2.5 MG TABLET PO (08:43)
[2023-11-12] MEDS: VANCOMYCIN 1,750 MG/NS 500 ML 1,750 MG/500 ML BAG 250 MG IVPB (08:44)
[2023-11-12] MEDS: ESCITALOPRAM OXALATE 10 MG TABLET 20 MG PO (08:44)
[2023-11-12] MEDS: glipiZIDE 2.5 MG TABLET PO (08:44)
[2023-11-12] MEDS: DOXYCYCLINE 100 MG/NS 100 ML 100 MG/100 ML BAG IVPB (08:45)
[2023-11-12] MEDS: MUPIROCIN 2% OINT 22 GM TUBE 1 APPLIC EACH NARE (08:45)
[2023-11-12] MEDS: FUROSEMIDE 20 MG TABLET PO (08:49)
[2023-11-12 08:56] LABS: Glucose Point of Care 181 mg/dl (65-105)
--- NOTE | 2023-11-12 09:55 | PM.DS ---
DS: Admitting Diagnosis Discharge Date 11/12/23 Admitting Diagnosis Sepsis Altered mental status Pneumonia UTI Diarrhea Hypokalemia Diabetes mellitus DS: Discharge Diagnosis Discharge Diagnosis (1) Sepsis: Code(s): A41.9 - Sepsis, unspecified organism Status: Acute (2) Acute respiratory failure with hypoxia: Code(s): J96.01 - Acute respiratory failure with hypoxia Status: Acute (3) Pneumonia: Qualifiers: Laterality: bilateral Lung location: unspecified part of lung Pneumonia type: due to unspecified organism Qualified Code(s): J18.9 - Pneumonia, unspecified organism Code(s): J18.9 - Pneumonia, unspecified organism Status: Acute (4) UTI (urinary tract infection): Code(s): N39.0 - Urinary tract infection, site not specified Status: Acute (5) Diarrhea: Code(s): R19.7 - Diarrhea, unspecified Status: Acute (6) Hypokalemia: Code(s): E87.6 - Hypokalemia Status: Acute (7) Altered mental status: Qualifiers: Altered mental status type: unspecified Qualified Code(s): R41.82 - Altered mental status, unspecified Code(s): R41.82 - Altered mental status, unspecified Status: Acute (8) Diabetes mellitus: Code(s): E11.9 - Type 2 diabetes mellitus without complications Status: Chronic DS: Summary Hospital Course Reason for hospitalization: Sepsis Altered mental status Pneumonia UTI Diarrhea Hypokalemia Diabetes mellitus Hospital Course: 11/10/23: This is a 68-year-old female who presented to the hospital on 11/09/2023 from [facility] via EMS with altered mental status. Workup in the hospital included a chest x-ray which shown left basilar airspace disease. Head CT which showed age-related changes, no acute intracranial process. Abdomen pelvis CT shown bronchial wall thickening, mucous plugging and ground-glass opacities and consolidation in bilateral lower lobes consistent with pneumonia, fluid in the distal colon consistent with diarrhea, diffuse hepatic steatosis and chronic nonspecific splenomegaly. Initial labs showed a white blood cell count of 15.7 a, potassium 3.0, chloride 91, EGFR 55, lactic acid 3.6> 1.8, AST 44, alk-phos 145, procalcitonin 0.2. UA was obtained which showed trace ketones, 3+ urine blood, 3+ leukocyte, 11-20 urine RBC, 11-20 urine WBC, 4+ bacteria. She was MRSA positive. Respiratory panel was negative for influenza a and B, RSV, COVID. Urine and blood cultures were obtained and are pending. Patient was started on Rocephin, vancomycin, and azithromycin, given 40 mEq of potassium while in the ED. On examination today patient is alert and oriented x3, lying in the bed. Patient denies any fever, chills, nausea, vomiting, chest pain, or shortness of breath. Patient endorses abdominal pain and diarrhea. Labs today show white blood cell count of 14.2, potassium is 3.3, chloride 97, blood sugars ranging 278-331. We will check Hgb A1C today, increase SSI to high dose, and add Lantus 10 units for tonight. 11/11/23: Patient denies any new complaints today. Limbs today show white blood cell count of 11.2, hemoglobin point potassium 3.3, AST 73. Urine cultures negative. Blood culture showing gram-positive cocci in clusters on 1/2 vials shows likely contaminant. Will transition to oral antibiotics tomorrow 11/12/23: Patient denies any new complaints today. Labs today reveal a normal white blood cell count of 8.8, hemoglobin 10.2,. She is stable for discharge at this time back to her facility. We will continue doxycycline and Augmentin for another 5 days for her community-acquired pneumonia. She will need to follow up with her primary care physician in 1 week. Final diagnosis: Sepsis secondary to community-acquired pneumonia, hypokalemia, altered mental status UTI was ruled out, culture was negative Status at Discharge Cognitive/behavioral status at discharge: Etelvina
[2023-11-12 10:14] LABS: Alanine Aminotransferase 24 U/L (6-35); Albumin Level 3.2 g/dL (3.5-5.1); Alkaline Phosphatase 98 U/L (38-126); Anion Gap 11 mmol/L (4-12); Aspartate Amino Transferase 76 U/L (14-36); Bilirubin,Total 0.3 mg/dL (0.2-1.3); Blood Urea Nitrogen 13 mg/dL (7-17); Calcium 8.4 mg/dL (8.4-10.2); Carbon Dioxide 24 mmol/L (22-30); Chloride 102 mmol/L (98-107); Estimated CRCL calculation 102 ml/min; Estimated Glomerular Filt Rate > 60; Glucose 144 mg/dL (65-110); Magnesium 1.4 mg/dL (1.6-2.3); Potassium 3.1 mmol/L (3.4-5.0); Sodium 137 mmol/L (137-145)
[2023-11-12 12:07] LABS: Glucose Point of Care 141 mg/dl (65-105)
[2023-11-12 16:58] LABS: SARS-CoV-2 RNA PCR Negative (Negative)
== END 2023-11-12 17:04 | DRG 871 ==
LOC: ANHED 16:23 → ANH3MED 17:06
PROVIDERS: Student in an Organized Health Care Education/Training Program; Admitting Provider Internal Medicine; Emergency Provider Family Medicine; Visit Provider Nurse Practitioner Acute Care
DX: A41.9 Sepsis, unspecified organism (principal); G93.41 Metabolic encephalopathy; J18.9 Pneumonia, unspecified organism; J96.01 Acute respiratory failure with hypoxia; Z20.822 Contact with and (suspected) exposure to COVID-19; E87.6 Hypokalemia; E11.9 Type 2 diabetes mellitus without complications; I10 Essential (primary) hypertension; I25.10 Atherosclerotic heart disease of native coronary artery without angina pectoris; F03.90 Unspecified dementia, unspecified severity, without behavioral disturbance, psychotic disturbance, mood disturbance, and anxiety; R19.7 Diarrhea, unspecified; E03.9 Hypothyroidism, unspecified; G25.81 Restless legs syndrome; F17.210 Nicotine dependence, cigarettes, uncomplicated; Z90.49 Acquired absence of other specified parts of digestive tract; Z90.710 Acquired absence of both cervix and uterus; Z79.82 Long term (current) use of aspirin; Z66 Do not resuscitate
CPT/HCPCS: 36415; 36600; 70450; 71045; 74177; 80048; 80053; 80202; 81001; 82375; 82565; 82805; 82948; 83036; 83050; 83605; 83735; 84145; 85025; 85027; 85610; 85730; 86140; 87040; 87077; 87086; 87088; 87181; 87635; 87637; 87641; 93005; 94640; 96360; 99285; A9270; J0456; J0696; J1650; J1815; J3370; J3480; J7030; J7040; Q9967

== ENCOUNTER 2024-06-28 12:53 | Inpatient (IN) | payer MEDICARE, MEDICAID, SELFPAY ==
[2024-06-28] VITALS (9 sets, daily range): BP systolic 105–121; BP diastolic 50–77; PULSE 82–96; RESP 12–20; TEMP 37.1–38.2; O2SAT 89–97; BMI 25.9
--- NOTE | ~2024-06-28 | CT_ITS ---
CT OF left hand EXAMINATION: CT hand LT w con DATE: 07/01/2024 22:36 INDICATION: Wound in the palmar hand, contracture TECHNIQUE: Computed tomography (CT) of the left hand was performed with 100 mL Omnipaque 350 intraven ous contrast. Automated exposure control and iterative reconstruction technique were employed. The do se-length product was 441.98 mGy-cm. COMPARISON: None FINDINGS: Examination limited by the inability of the patient to assume the Superman position, or place the h and overhead. Hand is clenched flexion and could not be opened. No definite fracture. No definite leeann picious erosion. Moderate scattered degenerative changes in the wrist and hand. Possible small cutane ous defect over the palm. No definite rim-enhancing soft tissue fluid collection. Questionable thicke mariah of the flexor tendon of the third digit at the level of the palm. The remaining flexor and exten sor tendons appear to be intact. IMPRESSION: Limited CT of the hand, as detailed above. Within those constraints, no definite fracture. No CT evid ence of soft tissue abscess or osteomyelitis. Questionable third digit flexor tenosynovitis at the le mack of the palm. Consider radiographic correlation and MRI with contrast, if the patient is able. Reviewed, dictated and finalized at location [facility] IMPRESSION: Limited CT of the hand, as detailed above. Within those constraints, no definit e fracture. No CT evidence of soft tissue abscess or osteomyelitis. Questionabl e third digit flexor tenosynovitis at the level of the palm. Consider radiograp hic correlation and MRI with contrast, if the patient is able.
--- NOTE | ~2024-06-28 | XR_ITS ---
XR chest 1V portable 06/28/2024 13:23 Indication: Cough and wheezing Procedure: AP portable chest Comparison: Comparison to multiple prior studies sequentially, with oldest reviewed study dated 02/28. Findings: Right upper lobe airspace disease, compatible with pneumonia. Heart size normal. Left lung clear. No pleural effusion or pneumothorax Impression: 1: Right upper lobe pneumonia. Reviewed, dictated and finalized at location A. S SANDER Impression: 1: Right upper lobe pneumonia.
--- NOTE | 2024-06-28 12:54 | ECG_ITS ---
Test Date: 2024-06-28 13:02:15 Measurements Intervals [place] Rate: 89 P: 85 KS: 151 QRS: 37 QRSD: 89 T: 80 QT: 383 QTc: 467 Interpretive Statements SINUS RHYTHM SEPTAL MYOCARDIAL INFARCTION , PROBABLY OLD [40+ ms Q WAVE IN V1/V2] NONSPECIFIC ST AND T WAVE ABNORMALITY Compared to ECG 11/09/2023 13:05:06 Myocardial infarct finding now present Electronically Signed On 06-28-2024 14:48:36 RESILIENT TILE INSTALLER by Adeola García M.D.
[2024-06-28 13:27] LABS: Basophils Absolute Auto 0.1 K/mm3 (0.0-0.1); Basophils Percent Auto 0.5 % (0.2-1.2); Eosinophils Absolute Auto 0.2 K/mm3 (0-0.3); Eosinophils Percent Auto 1.4 % (0-4.4); Hematocrit 36.1 % (37.0-47.0); Hemoglobin 11.7 g/dL (12.0-15.0); Immature Granulocyte Absolute 0.03 K/mm3 (0.00-0.031); Immature Granulocyte Percent A 0.3 % (0-0.5); Lymphocytes Absolute Auto 2.94 K/mm3 (0.9-3.2); Lymphocytes Percent Auto 28.1 % (18.3-44.2); Mean Corpuscular HGB Conc 32.4 g/dl (32-36); Mean Corpuscular Hemoglobin 28.7 pg (26-34); Mean Corpuscular Volume 88.5 fl (80-100); Mean Platelet Volume 9.1 fl (7.4-10.4); Monocytes Absolute Auto 0.5 K/mm3 (0.1-0.6); Monocytes Percent Auto 4.9 % (2.6-8.5); Neutrophils Absolute Auto 6.8 K/mm3 (1.3-6.7); Neutrophils Percent Auto 64.8 % (45.5-73.1); Platelet Count Result 231 k/mm3 (150-375); Red Blood Count 4.08 M/mm3 (4.2-5.4); Red Cell Distribution Width 14.6 % (11.5-14.5); White Blood Count 10.5 K/mm3 (4.5-10.0)
[2024-06-28 13:38] LABS: Prothrombin Time 13.3 Seconds (11.1-14.7)
[2024-06-28 13:39] LABS: Partial Thromboplastin Time 34.7 Seconds (22.3-36.8)
[2024-06-28 14:58] LABS: Alanine Aminotransferase 15 U/L (6-35); Albumin Level 3.7 g/dL (3.5-5.1); Alkaline Phosphatase 82 U/L (38-126); Anion Gap 14 mmol/L (4-12); Aspartate Amino Transferase 29 U/L (14-36); Bilirubin,Total 0.7 mg/dL (0.2-1.3); Blood Urea Nitrogen 16 mg/dL (7-17); Carbon Dioxide 28 mmol/L (22-30); Chloride 97 mmol/L (98-107); Estimated CRCL calculation 93 ml/min; Estimated Glomerular Filt Rate > 60; Glucose 71 mg/dL (65-110); Lipase 54 U/L (23-300); Potassium 3.4 mmol/L (3.4-5.0); Sodium 139 mmol/L (137-145)
[2024-06-28 15:09] LABS: Troponin I < 0.012 ng/mL (0.000-0.034)
[2024-06-28 16:19] LABS: Troponin I < 0.012 ng/mL (0.000-0.034)
--- NOTE | 2024-06-28 16:20 | ED.CHESTPAIN ---
HPI - Chest Pain General Chief Complaint: Chest Pain Stated Complaint: cp Time Seen by Provider: 06/28/24 16:19 Source: patient and EMS Mode of arrival: EMS History of Present Illness HPI narrative: 68 YEARS OLD WHITE FEMALE CAME FROM SKILLED NURSING BY AMBULANCE COMPLAINING OF PRODUCTIVE COUGH OF GREEN SPUTUM AND SHORTNESS OF BREATH FOR THE LAST 2 WEEKS. PATIENT IS TELLING ME THAT SHE USED TO BE ON OXYGEN FOR WHILE AND RECENTLY NOT ON IT ANYMORE. CURRENTLY PATIENT ON OXYGEN BY NASAL CANNULA, 2 L. SHE DENIES ANY FEVER OR CHILLS OR NAUSEA OR VOMITING. HISTORY OF DIABETES, PSYCH DISORDER, HYPERLIPIDEMIA Related Data Home Medications ?Medication ?Instructions ?Recorded ?Confirmed ?Last Taken ?Type Artificial Tears 2 drp RIGHT EYE QID 11/09/23 11/09/23 Unknown History Milk of Magnesia 30 ml PO DAILY PRN Constipation 11/09/23 11/09/23 Unknown History acetaminophen 650 mg PO Q6H PRN Fever Or Pain 11/09/23 11/09/23 Unknown History albuterol sulfate 90 mcg/actuation See Rx Instructions .Route 11/09/23 11/09/23 Unknown History aerosol inhaler .COMPLEX PRN sob atorvastatin 20 mg tablet 20 mg PO HS 11/09/23 11/09/23 Unknown History buspirone 7.5 mg tablet 7.5 mg PO BID 11/09/23 11/09/23 Unknown History escitalopram oxalate 20 mg tablet 20 mg PO DAILY 11/09/23 11/09/23 Unknown History furosemide 20 mg tablet 20 mg PO DAILY 11/09/23 11/09/23 Unknown History gabapentin 600 mg tablet 600 mg PO TID 11/09/23 11/09/23 Unknown History glipizide 5 mg tablet 2.5 mg PO BID 11/09/23 11/09/23 Unknown History krill [id number]-epa 1 cap PO HS 11/09/23 11/09/23 Unknown History loperamide 2 mg capsule 4 mg PO Q8H PRN Diarrhea 11/09/23 11/09/23 Unknown History metformin 1,000 mg tablet 1,000 mg PO BID 11/09/23 11/09/23 Unknown History metolazone 2.5 mg tablet See Rx Instructions .Route .COMPLEX 11/09/23 11/09/23 Unknown History naloxone 4 mg/actuation nasal spray See Rx Instructions .Route .COMPLEX 11/09/23 11/09/23 Unknown History ondansetron 4 mg disintegrating 4 mg PO Q8H PRN Nausea And Vomiting 11/09/23 11/09/23 Unknown History tablet quetiapine 25 mg tablet 25 mg PO BID 11/09/23 11/09/23 Unknown History ropinirole 3 mg tablet 3 mg PO TID 11/09/23 11/09/23 Unknown History senna 8.6 mg PO BID PRN Constipation 11/09/23 11/09/23 Unknown History trazodone 50 mg tablet 25 mg PO HS 11/09/23 11/09/23 Unknown History Allergies Allergy/AdvReac Type Severity Reaction Status Date / Time No Known Allergies Allergy Verified 11/09/23 17:20 Review of Systems Review of Systems: All systems reviewed & are unremarkable except as noted in HPI and below PMFSH Past Medical History Medical History (Updated 06/28/24 @ 18:02 by Denise Ladd MD) Tobacco abuse Vitamin B12 deficiency Hypothyroidism Diabetes mellitus RLS (restless legs syndrome) History of anxiety History of depression History of asthma History of hypertension History of coronary artery disease Surgical History Surgical History History of hysterectomy History of inguinal hernia repair History of cholecystectomy History of cardiac catheterization Family History Family History Father Family history of premature coronary heart disease, Onset Age: 69 Patient's father is Mother Family history of malignant neoplasm of breast in first degree relative Social History Social History Social History: Lives at home with . On disability. No longer drives and does not leave the home. Designates , Ant, as surrogate decision maker. Full code. Not established with PCP. Smoking packs per day: 1 Smoking cigarettes per day: 20.0 Years smoked: 30 Smoking pack-years: 30.00 Smoking status: Current every day smoker Alcohol intake: never Substance use type: does not use Spiritual care concerns: No Exam Narrative: GENERAL APPEARANCE: WELL-DEVELOPED, WELL-NOURISHED SKIN: NORMAL COLOR HEAD: NORMOCEPHALIC, NONTRAUMATIC EYES: CLEAR CONJUNCTIVA ENT: OROPHARYNX NORMAL, EARS NORMAL, NOSE NORMAL NECK: SUPPLE, NONTENDER CHEST AND RESPIRATORY: AIRWAY PATENT, NO RESPIRATORY DISTRESS, NO ACCESSORY MUSCLE USE FEW SCATTERED RHONCHI BILATERALLY HEART: REGULAR RATE/RHYTHM ABDOMEN: SOFT, NONTENDER, NO ORGANOMEGALY, QUIET BOWEL SOUNDS VASCULAR: NORMAL PERIPHERAL PULSES, NORMAL CAPILLARY REFILL. MUSCULOSKELETAL: NORMAL RANGE OF MOTION, NONTENDER BACK NEUROLOGIC: ALERT AND ORIENTED ?3, FAST FOOD FRY COOK IS NORMAL TESTED, NO GROSS MOTOR DEFICIT Course Vital Signs Vital signs: Vital Signs Temperature 98.7 F 06/28/24 12:55 Pulse Rate 88 06/28/24 12:55 Respiratory Rate 16 06/28/24 12:55 Blood Pressure 118/66 06/28/24 12:55 Pulse Oximetry 93 06/28/24 12:55 Oxygen Delivery Room Air 06/28/24 12:55 Temperature 98.7 F 06/28/24 12:55 Pulse Rate 90 06/28/24 18:07 Respiratory Rate 20 06/28/24 18:07 Blood Pressure 113/50 L 06/28/24 18:07 Pulse Oximetry 95 06/28/24 18:07 Oxygen Delivery Nasal Cannula 06/28/24 17:32 Oxygen Flow Rate 2 06/28/24 17:32 MDM - Chest Pain MDM Narrative Medical decision making narrative: PATIENT PRESENTS WITH CHEST PAIN AND PRODUCTIVE COUGH VITAL SIGNS SHOWING OXYGEN SATURATION ON ROOM AIR 93% PHYSICAL EXAMINATION SHOWING A PATIENT, NOT IN PAIN OR DISTRESS, ON 2 L OXYGEN BY NASAL CANNULA DIFFERENTIAL DIAGNOSIS INCLUDE PNEUMONIA, CONGESTIVE HEART FAILURE, CORONARY ARTERY DISEASE, UPPER RESPIRATORY VIRAL INFECTION BLOOD WORKUP TODAY INCLUDES CBC, CMP, TROPONIN, BLOOD CULTURE, LACTIC ACID AND CRP SHOWED WBC OF 10.5, ANION GAP OF 14, OTHERWISE INSIGNIFICANT ABNORMALITIES CHEST X-RAY SHOWED RIGHT UPPER LOBE PNEUMONIA PATIENT STARTED ON ROCEPHIN AND AZITHROMYCIN IV, ADMIT TO HOSPITALIST Differential Diagnosis Differential diagnosis: Likely other ( ABOVE) Medical Records Data Attestation: I reviewed the patient's medical records. Lab Data Attestation: I reviewed the patient's lab results. 06/28/24 13:13 06/28/24 13:13 Labs: Lab Results 06/28/24 06/28/24 06/28/24 Range/Units 13:13 15:52 18:01 WBC 10.5 H (4.5-10.0) K/mm3 RBC 4.08 L (4.2-5.4) M/mm3 Hgb 11.7 L (12.0-15.0) g/dL Hct 36.1 L (37.0-47.0) % MCV 88.5 (80-100) fl MCH 28.7 (26-34) pg MCHC 32.4 (32-36) g/dl RDW 14.6 H (11.5-14.5) % Plt Count 231 D (150-375) k/mm3 MPV 9.1 (7.4-10.4) fl Immature Gran % (Auto) 0.3 (0-0.5) % Neut % (Auto) 64.8 (45.5-73.1) % Lymph % (Auto) 28.1 (18.3-44.2) % [place] % (Auto) 4.9 (2.6-8.5) % Eos % (Auto) 1.4 (0-4.4) % Baso % (Auto) 0.5 (0.2-1.2) % Lymph # (Auto) 2.94 (0.9-3.2) K/mm3 [place] # (Auto) 0.5 (0.1-0.6) K/mm3 Eos # (Auto) 0.2 (0-0.3) K/mm3 Baso # (Auto) 0.1 (0.0-0.1) K/mm3 Abs Immat Gran (auto) 0.03 (0.00-0.031) K/mm3 Absolute Neuts (auto) 6.8 H (1.3-6.7) K/mm3 Absolute Nucleated RBC 0.000 (0.0-0.012) K/mm3 Nucleated RBC % 0.0 (0.0-0.2) % PT 13.3 (11.1-14.7) Seconds INR 1.0 APTT 34.7 (22.3-36.8) Seconds Sodium 139 (137-145) mmol/L Potassium 3.4 (3.4-5.0) mmol/L Chloride 97 L (98-107) mmol/L Carbon Dioxide 28 (22-30) mmol/L Anion Gap 14 H (4-12) mmol/L BUN 16 (7-17) mg/dL Creatinine 0.50 L (0.7-1.0) mg/dL Estim Creat Clear Calc 93 ml/min Estimated GFR > 60 (59 - ) Glucose 71 (65-110) mg/dL Calcium 9.0 (8.4-10.2) mg/dL Total Bilirubin 0.7 (0.2-1.3) mg/dL AST 29 (14-36) U/L ALT 15 (6-35) U/L Alkaline Phosphatase 82 (38-126) U/L Troponin I < 0.012 < 0.012 (0.000-0.034) ng/mL Total Protein 7.0 (6.3-8.2) g/dL Albumin 3.7 (3.5-5.1) g/dL Lipase 54 (23-300) U/L Influenza A (RT-PCR) Negative (Negative) Influenza B (RT-PCR) Negative (Negative) RSV (RT-PCR) Negative (Negative) SARS-CoV-2 RNA (RT-PCR) Positive A (Negative) Imaging Data Radiologist's impression: Impressions Chest X-Ray 06/28/24 13:27 Impression: 1: Right upper lobe pneumonia. ECG Data EKG #1: Attestation: I personally reviewed and interpreted this ECG as follows: ECG completion date: 06/28/24 Interpretation: NORMAL SINUS RHYTHM AT 89 BEATS PER MINUTE, SEPTAL MYOCARDIAL INFARCTION PROBABLY OLD, NONSPECIFIC ST AND T-WAVE ABNORMALITY Critical Care Time Critical Care Time Critical Care Time: No Discharge Plan Discharge Clinical Impression: Pneumonia Patient Disposition: Still a Patient Condition: Stable Patient Language: Serbian Prescriptions: No Action Artificial Tears 2 drp RIGHT EYE QID quetiapine 25 mg tablet 25 mg PO BID metolazone 2.5 mg tablet See Rx Instructions .ROUTE .COMPLEX Rx Instructions: 2.5 mg orally every other day. gabapentin 600 mg tablet 600 mg PO TID atorvastatin 20 mg tablet 20 mg PO HS loperamide 2 mg capsule 4 mg PO Q8H PRN (Reason: Diarrhea) trazodone 50 mg tablet 25 mg PO HS ropinirole 3 mg tablet 3 mg PO TID metformin 1,000 mg tablet 1,000 mg PO BID buspirone 7.5 mg tablet 7.5 mg PO BID furosemide 20 mg tablet 20 mg PO DAILY albuterol sulfate 90 mcg/actuation HFA aerosol inhaler See Rx Instructions .ROUTE .COMPLEX PRN (Reason: sob) Rx Instructions: 1-2 puffs Q8 PRN For SOB ondansetron 4 mg tablet,disintegrating 4 mg PO Q8H PRN (Reason: Nausea And Vomiting) glipizide 5 mg tablet 2.5 mg PO BID escitalopram oxalate 20 mg tablet 20 mg PO DAILY naloxone 4 mg/actuation spray,non-aerosol See Rx Instructions .ROUTE .COMPLEX Rx Instructions: 1 spray intranasally, use as directed for opioid overdose. Milk of Magnesia 30 ml PO DAILY PRN (Reason: Constipation) acetaminophen 650 mg PO Q6H PRN (Reason: Fever Or Pain) krill wpm-[id number]-5-dha-epa 1 cap PO HS senna 8.6 mg PO BID PRN (Reason: Constipation) doxycycline hyclate 100 mg capsule 100 mg PO DAILY Qty: 5 0RF amoxicillin-pot clavulanate 875-125 mg tablet 1 tablet PO Q12H Qty: 10 0RF hydrocodone-acetaminophen 7.5-325 mg Tablet 1 tablet PO TID Qty: 30 0RF aspirin 81 mg Tablet,Delayed Release (Dr/Ec) 81 mg PO QAM Qty: 30 0RF cyanocobalamin (vitamin B-12) [Vitamin B-12] 1,000 mcg Tablet 1,000 mcg PO QAM Qty: 30 0RF magnesium oxide 400 mg (241.3 mg magnesium) Tablet 400 mg PO DAILY Qty: 30 0RF potassium chloride [K-Tab] 20 mEq Tablet Extended Release 20 meq PO DAILY Qty: 30 0RF Follow-up/Referrals: UNKNOWN,DOCTOR [Primary Care Provider] -
--- OUTSIDE RECORDS SUMMARY | 2024-06-28 16:39 | XMS_ITS | CONTINUITY OF CARE DOCUMENT ---
Author Name brooklynn overton Address Unknown Organization [facility] Address [address] [place] [address] Phone [phone] Care Team Providers Care Bicycle I Assembler Name Role Phone Gene Greco MD Unavailable [phone] MD, BERHANE Unavailable [phone] INSURANCE PROVIDERS Payer name Policy type / Coverage type [place] red democrat ID [facility] [id number]
[2024-06-28 18:40] LABS: Influenza A QL RT-PCR Negative (Negative); Influenza B QL RT-PCR Negative (Negative); RSV RNA, RT-PCR Negative (Negative); SARS-CoV-2 RNA PCR Positive (Negative)
[2024-06-28] MEDS: AZITHROMYCIN 500 MG/NS 250 ML 500 MG/250 ML BAG 250 MG IVPB (18:46)
--- NOTE | 2024-06-28 18:52 | P.HP_ITS ---
H&P: HPI History of Present Illness Date/Time: 06/28/24 18:00 Chief Complaint: Body aches and cough. Narrative: This is a 68-year-old female with history of chronic obstructive pulmonary disease, type 2 diabetes mellitus, hyperthyroidism, kidney stones, fibromyalgia, depression, anxiety, and chronic debility who presented to the emergency department via EMS from [place] with complaints of body aches and cough. The patient provides the following history however she is only a fair historian and some of the following is supplemented via a review of her electronic medical records. She says she has not been feeling well for 2 about weeks with symptoms to include fatigue, weakness, body aches, mild shortness of breath, aching chest, and cough productive of green phlegm. She does not think she has been running a fever and she denies chills, sweats, headache, neck ache, sore throat, pleuritic pain, abdominal pain, vomiting, diarrhea, and dysuria. No known sick contacts. In the ED: She was afebrile on arrival however temperature this evening was 100.7? F. SpO2 was as low as 89% on room air and she is currently on 2 L. Her blood pressures have been stable. Labs are significant for WBC count of 10.5, he moglobin 11.7, carbon dioxide 97, anion gap 14, BUN 0.50, lactic acid 2.7, troponin less than 0.012, CRP 1.5. She tested positive for COVID. Chest x-ray shows right upper lobe pneumonia. EKG showed sinus rhythm with probably old septal myocardial infarction and nonspecific ST T-wave abnormalities. She was given a dose of azithromycin and ceftriaxone she is being admitted in this setting for further treatment. Review of Systems Review of Systems: 12 systems were reviewed and are negativ e except for as per HPI. FOR[facility]LY [facility] Past Medical History Medical History (Updated 06/28/24 @ 22:19 by Dalia Busby PA-C) Fibromyalgia Kidney stones Type 2 diabetes mellitus Coronary artery disease Chronic obstructive pulmonary disease Restless leg syndrome Hypertension Depression with anxiety Tobacco abuse Vitamin B12 deficiency Hypothyroidism Surgical History Surgical History (Updated 06/28/24 @ 22:15 by Dalia Busby PA-C) History of open reduction and internal fixation (ORIF) procedure repair left ankle fracture History of exploratory laparotomy for perforated bowel per patient report History of hysterectomy History of inguinal hernia repair History of cholecystectomy History of cardiac catheterization Family History Family History Father Family history of premature coronary heart disease, Onset Age: 69 Patient's father is Mother Family history of malignant neoplasm of breast in first degree relative Social History Social History (Updated 06/28/24 @ 22:16 by Dalia Busby PA-C) Social History: Surrogate medical decision maker: Ant Carsone, spouse. Code status: Full code. Smoking packs per day: 1 Smoking cigarettes per day: 20.0 Years smoked: 30 Smoking pack-years: 30.00 Smoking status: Current every day smoker Alcohol intake: never Substance use type: does not use Living arrangements: prison Additional living arrangements comments: Resident of [facility]. Spiritual care concerns: No Meds Home Medications and Allergies Home Medications ?Medication ?Instructions ?Recorded ?Confirmed ?Type aspirin 81 mg tablet,delayed 81 mg PO QAM #30 tabs 02/02/22 06/28/24 Rx release cyanocobalamin (vitamin B-12) 1,000 mcg PO QAM #30 tabs 02/02/22 06/28/24 Rx 1,000 mcg tablet (Vitamin B-12) magnesium oxide 400 mg (241.3 mg 400 mg PO DAILY #30 tabs 02/02/22 06/28/24 Rx magnesium) tablet potassium chloride 20 mEq 20 meq PO DAILY #30 tabs 02/02/22 06/28/24 Rx tablet,extended release (K-Tab) Artificial Tears 2 drp RIGHT EYE QID 11/09/23 06/28/24 History Milk of Magnesia 30 ml PO DAILY PRN Constipation 11/09/23 06/28/24 History acetaminophen 650 mg PO Q6H PRN Fever Or Pain 11/09/23 06/28/24 History albuterol sulfate 90 mcg/actuation See Rx Instructions .Route 11/09/23 06/28/24 History aerosol inhaler .COMPLEX PRN sob atorvastatin 20 mg tablet 20 mg PO HS 11/09/23 06/28/24 History buspirone 7.5 mg tablet 10 mg PO TID 11/09/23 06/28/24 History escitalopram oxalate 20 mg tablet 20 mg PO DAILY 11/09/23 06/28/24 History furosemide 20 mg tablet 20 mg PO DAILY 11/09/23 06/28/24 History gabapentin 600 mg tablet 600 mg PO TID 11/09/23 06/28/24 History glipizide 5 mg tablet 2.5 mg PO BID 11/09/23 06/28/24 History krill prm-wjrax-[id number]-dha-epa 1 cap PO HS 11/09/23 06/28/24 History metformin 1,000 mg tablet 1,000 mg PO BID 11/09/23 06/28/24 History metolazone 2.5 mg tablet See Rx Instructions .Route .COMPLEX 11/09/23 06/28/24 History naloxone 4 mg/actuation nasal spray See Rx Instructions .Route .COMPLEX 11/09/23 06/28/24 History ondansetron 4 mg disintegrating 4 mg PO Q8H PRN Nausea And Vomiting 11/09/23 06/28/24 History tablet quetiapine 25 mg tablet 25 mg PO BID 11/09/23 06/28/24 History ropinirole 3 mg tablet 3 mg PO TID 11/09/23 06/28/24 History senna 8.6 mg PO BID PRN Constipation 11/09/23 06/28/24 History trazodone 50 mg tablet 25 mg PO HS 11/09/23 06/28/24 History hydrocodone 7.5 mg-acetaminophen 1 tablet PO TID #30 tabs 11/12/23 06/28/24 Rx 325 mg tablet Allergies Allergy/AdvReac Type Severity Reaction Status Date / Time No Known Allergies Allergy Verified 11/09/23 17:20 Vital Signs Vital Signs - 24 hr 06/28/24 12:55 06/28/24 14:38 06/28/24 14:38 Temperature 98.7 F Pulse Rate 88 82 Respiratory Rate 16 20 Blood Pressure 118/66 105/77 Pulse Oximetry 93 94 Oxygen Delivery Room Air Room Air Oxygen Flow Rate 06/28/24 15:35 06/28/24 16:25 06/28/24 17:17 Temperature Pulse Rate 90 83 87 Respiratory Rate 20 13 20 Blood Pressure 112/52 L 109/51 L 113/55 L Pulse Oximetry 92 95 89 L Oxygen Delivery Oxygen Flow Rate 06/28/24 17:32 06/28/24 18:07 Temperature Pulse Rate 90 Respiratory Rate 20 Blood Pressure 113/50 L Pulse Oximetry 96 95 Oxygen Delivery Nasal Cannula Oxygen Flow Rate 2 Exam Narrative: General: Chronically ill-appearing female supine in bed. Frequent hacking cough which she does not attempt to cover. Weight: 70.8 kg. BMI: 26.0. HEENT: PERRL, EOMI. Sclera anicteric. Tacky mucous membranes. Neck: Supple. No JVD or lymphadenopathy. Respiratory: Respirations are nonlabored. Lung sounds are a bit diminished and coarse with faint wheezing. Cardiovascular: Regular rate and rhythm with S1-S2. Chest: She has some tenderness to palpation over the anterior chest wall. Gastrointestinal: Abdomen is soft and nondistended with positive bowel sounds. She reports being tender to palpation throughout the entire abdomen without guarding or rebound tenderness. No masses or organomegaly noted. Skin: Warm and dry. Generalized pallor. Extremities: No cyanosis, clubbing, or significant edema. Radial and pedal pulses intact. Neurological: Alert. Cranial nerves 2-12 are grossly intact. Generalized weakness without gross focal findings. Psychiatric: Cooperative with appropriate mood and flat affect. H&P: Results Labs Labs: Short CBC 06/28/24 Range/Units 13:13 WBC 10.5 H (4.5-10.0) K/mm3 Hgb 11.7 L (12.0-15.0) g/dL Hct 36.1 L (37.0-47.0) % Plt Count 231 D (150-375) k/mm3 BMP 06/28/24 13:13 Sodium 139 Potassium 3.4 Chloride 97 L Carbon Dioxide 28 BUN 16 Creatinine 0.50 L Glucose 71 Calcium 9.0 Cardiac Enzymes 06/28/24 06/28/24 Range/Units 13:13 15:52 Troponin I < 0.012 < 0.012 (0.000-0.034) ng/mL Liver Function 06/28/24 Range/Units 13:13 Total Bilirubin 0.7 (0.2-1.3) mg/dL AST 29 (14-36) U/L ALT 15 (6-35) U/L Alkaline Phosphatase 82 (38-126) U/L Albumin 3.7 (3.5-5.1) g/dL Impressions Chest X-Ray 06/28/24 13:27 Impression: 1: Right upper lobe pneumonia. Assessment and Plan Assessment and plan (1) Right upper lobe pneumonia: Code(s): J18.9 - Pneumonia, unspecified organism Status: Acute (2) COVID: Code(s): U07.1 - COVID-19 Status: Acute (3) Hypoxia: Code(s): R09.02 - Hypoxemia Status: Acute (4) Type 2 diabetes mellitus: Code(s): E11.9 - Type 2 diabetes mellitus without complications Status: Acute (5) Fibromyalgia: Code(s): M79.7 - Fibromyalgia Status: Acute (6) Chronic obstructive pulmonary disease: Code(s): J44.9 - Chronic obstructive pulmonary disease, unspecified Status: Acute Plan The patient presented to the emergency department for evaluation of body aches and cough with other symptoms as detailed in HPI. Labs, imaging, EKG, and all reports were personally reviewed. She tested positive for SARS-CoV-2 by PCR and has been started on remdesivir and dexamethasone. Chest x-ray showed right upper lobe pneumonia and due to the fact that she has not been feeling well for a couple of weeks, this may represent a concomitant bacterial pneumonia and she has been started on antibiotics pending sputum culture. Check procalcitonin and screen for MRSA colonization. Continue scheduled bronchodilators. She is currently requiring 2 L nasal cannula and oxygen will be weaned as tolerated. She is complaining of diffuse pain which is likely related to underlying infection and her fibromyalgia. She is also reporting chest pain but has reproducible pain on palpation of the chest wall. EKG showed findings of a probable old septal AK and an echocardiogram ordered. Troponin was normal. Initiate sliding scale insulin, Accu-Cheks, and hypoglycemic protocol. Her home medications will be reviewed and resumed as appropriate. Findings and treatment plan were discussed with the patient. Questions were solicited and answered to satisfaction. The patient's medical management will be taken over by the [facility] team in a.m. Quality VTE Prophylaxis VTE prophylaxis: pharmacologic ordered The patient has been admitted under observation status. Hospitalist MIPS Advance Care Plan I have confirmed that the patient's Advanced Care Plan is present, code status is documented, or surrogate decision maker is listed in patient medical record.: Yes Medication Reconciliation I have utilized all available resources to obtain, update and review the patients current medications (includes all prescriptions, OTC, herbals, cannabis, and nutritional supplements).: Yes
[2024-06-28 19:11] LABS: CRP 1.5 mg/dL (<1.0)
[2024-06-28 20:04] LABS: Troponin I < 0.012 ng/mL (0.000-0.034)
[2024-06-28 20:21] LABS: Lactic Acid Reflex 2.7 mmol/L (0.7-2.0)
[2024-06-28 23:13] LABS: Reflex Lactic Acid Yes or No Add Lactic
[2024-06-28 23:13] LABS: Hemoglobin A1C 5.8 % (<5.7)
--- NOTE | 2024-06-28 23:18 | ADMGEN ---
This patient, Lili Acosta, was admitted to 3 [facility] Surg Room 309-01. Patient/family oriented to hospital policies and general routines including ID bracelet, bed and alarms, visiting hours, pain management, procedures, bathroom and other care routines, personal items, smoking policy, room service/diet, and visiting hours. Information on how to activate the Rapid Response Team has been discussed. Patient/Family are encouraged to report perceived risks to care and to ask questions if they do not understand what they are told or what they should do.
[2024-06-28] MEDS: REMDESIVIR 200 MG/NS 250 ML 200 MG/250 ML BAG 250 MG IVPB (23:30)
[2024-06-28] MEDS: HYDROcodone/acetaminophen (*CRX) 5-325 MG TABLET 1 TAB PO (23:31)
[2024-06-28] MEDS: dexAMETHasone SOD PHOS INJ 10 MG/ML 1 ML VIAL 6 MG IV PUSH (23:35)
[2024-06-28 23:52] LABS: Glucose Point of Care 107 mg/dl (65-105)
[2024-06-29] VITALS (10 sets, daily range): BP systolic 127–148; BP diastolic 56–71; PULSE 76–91; RESP 14–22; TEMP 36.2–36.7; O2SAT 89–97
--- NOTE | 2024-06-29 | ECHO_ITS ---
Patient Info Name: Lili Acosta Age: 68 years : 1955 Gender: Female Ht: 65 in Wt: 156 lbs BSA: 1.82 m2 HR: 80 bpm BP: 127 / 71 mmHg Technical Quality: Fair Exam Date: 06/29/2024 2:26 PM Exam Location: Echo Lab Exam Room: [facility] Patient Status: Inpatient Admit Date: 06/28/2024 Staff Ordering Physician: Dalia Busby PA-C Director Organizational: Lisa Cummings RDCS Attending Provider: Shonda Dominguez APRN Referring Physician: Kehinde SAMPSON; Exam Type: CA echo doppler color flow Study Info Indications - EKG changes, h/o CAD, COPD, COVID, SOB Complete two-dimensional, color flow and Doppler transthoracic echocardiogram is performed. Summary 1. Very technically difficult study with limited views. 2. Left ventricular chamber dimension is normal. 3. Left ventricular systolic function is normal, estimated at 65-70%. 4. The left ventricular diastolic function is grade I diastolic dysfunction. 5. Right ventricular systolic function is normal. 6. Left atrial chamber dimension is moderately enlarged. 7. There is trivial pericardial effusion. Left Ventricle Left ventricular chamber dimension is normal. Left ventricular systolic function is normal, estimated at 65-70%. The left ventricular diastolic function is grade I diastolic dysfunction. Right Ventricle Right ventricular chamber dimension is normal. Right ventricular systolic function is normal. Left Atria Left atrial chamber dimension is moderately enlarged. Right Atria Right atrial chamber dimension is normal. Atrial Septum Interatrial septum not well visualized. Aortic Valve The aortic valve is not well visualized. There is no aortic valve regurgitation. Pulmonic Valve The pulmonic valve is not well visualized. Mitral Valve There is trace mitral valve regurgitation. Tricuspid Valve There is trace tricuspid valve regurgitation. Pericardium/Pleural There is trivial pericardial effusion. Inferior Vena Cava Normal inferior vena cava with >50% collapse upon inspiration consistent with normal right atrial pressure, 3 mmHg. Aorta The aortic root size at the sinus of Valsalva is not well visualized. Left Ventricular Outflow Tract Name Value Normal LVOT Doppler LVOT Peak Gradient 5 mmHg LVOT Mean Gradient 3 mmHg LVOT VTI 28 cm LVOT VTI/AV VTI Ratio 0.4 Mitral Valve Name Value Normal MV Doppler MV Peak Gradient 3 mmHg MV Mean Gradient 1 mmHg MV Decel [place] 252 cm/s2 MV PHT 93 ms MV Area (PHT) 2.4 cm2 4.0-5.0 MV Diastolic Function MV E Peak Velocity 81 cm/s MV A Peak Velocity 89 cm/s MV E/A 0.9 MV Decel Time 320 ms MV Annular TDI MV E/e' (Lateral) 9.4 <=8.0 Tricuspid Valve Name Value Normal Estimated PAP/RSVP RA Pressure 3 mmHg <=5 Aortic Valve Name Value Normal AV Doppler AV Peak Velocity 325 cm/s AV Peak Gradient 41 mmHg AV Mean Gradient 24 mmHg AV VTI 75 cm Ventricles Name Value Normal LV Fractional Shortening/Ejection Fraction 2D/MM LV Diastolic Volume (4C MOD) 74 ml LV EF (4C MOD) 67 % LV Diastolic Length (4C) 7.8 cm LV Systolic Length (4C) 6.2 cm LV Stroke Volume (4C MOD) 50 ml Atria Name Value Normal LA Dimensions LA Volume (4C A-L) 42 ml RA Dimensions RA Area (4C) 10.5 cm2 <=18.0 Report Signatures
[2024-06-29 00:31] LABS: Lactic Acid 1.8 mmol/L (0.7-2.0)
[2024-06-29 01:48] LABS: MRSA (PCR) DETECTED (NOT DETECTE)
[2024-06-29] MEDS: HYDROcodone/acetaminophen (*CRX) 7.5-325 MG TABLET 1 TAB PO ×2 (04:23→17:41)
[2024-06-29 06:28] LABS: Hematocrit 37.8 % (37.0-47.0); Mean Corpuscular HGB Conc 31.7 g/dl (32-36); Mean Corpuscular Hemoglobin 28.1 pg (26-34); Mean Corpuscular Volume 88.5 fl (80-100); Mean Platelet Volume 9.2 fl (7.4-10.4); Platelet Count Result 240 k/mm3 (150-375); Red Blood Count 4.27 M/mm3 (4.2-5.4); Red Cell Distribution Width 14.7 % (11.5-14.5); White Blood Count 7.4 K/mm3 (4.5-10.0)
[2024-06-29 06:58] LABS: Alanine Aminotransferase 21 U/L (6-35); Alkaline Phosphatase 94 U/L (38-126); Anion Gap 16 mmol/L (4-12); Aspartate Amino Transferase 26 U/L (14-36); Bilirubin,Total 0.5 mg/dL (0.2-1.3); Blood Urea Nitrogen 15 mg/dL (7-17); Carbon Dioxide 26 mmol/L (22-30); Chloride 97 mmol/L (98-107); Estimated CRCL calculation 67 ml/min; Estimated Glomerular Filt Rate > 60; Glucose 312 mg/dL (65-110); Lactate Dehydrogenase 129 U/L (120-246); Magnesium 1.2 mg/dL (1.6-2.3); Potassium 3.4 mmol/L (3.4-5.0); Procalcitonin 0.1 ng/mL; Sodium 139 mmol/L (137-145)
[2024-06-29] MEDS: IPRATROPIUM 0.5 MG/ALBUTEROL SULFATE 2.5 MG AMPUL.NEB 3 ML INHALATION ×2 (07:24→13:35)
[2024-06-29 07:47] LABS: Glucose Point of Care 205 mg/dl (65-105)
[2024-06-29] MEDS: MAGNESIUM SULFATE 3GM/D5W100ML 3 GM/100 ML BAG IVPB (09:26)
[2024-06-29] MEDS: DOXYCYCLINE HYCLATE 100 MG TABLET PO ×2 (09:26→22:13)
[2024-06-29] MEDS: MAGNESIUM OXIDE 400 MG TABLET PO (09:26)
[2024-06-29] MEDS: ESCITALOPRAM OXALATE 10 MG TABLET 20 MG PO (09:27)
[2024-06-29] MEDS: dexAMETHasone 2 MG TABLET 6 MG PO (09:27)
[2024-06-29] MEDS: rOPINIRole HCL 1 MG TABLET 3 MG PO ×3 (09:27→17:47)
[2024-06-29] MEDS: ASPIRIN 81 MG ENTERIC TABLET PO (09:27)
[2024-06-29] MEDS: GABAPENTIN 300 MG CAPSULE 600 MG PO ×3 (09:27→17:47)
[2024-06-29] MEDS: POTASSIUM CHLORIDE 20 MEQ ER TABLET 40 MEQ PO (09:28)
[2024-06-29] MEDS: CYANOCOBALAMIN 1,000 MCG TABLET 1000 MCG PO (09:28)
[2024-06-29] MEDS: FUROSEMIDE 20 MG TABLET PO (09:28)
[2024-06-29] MEDS: POTASSIUM CHLORIDE 20 MEQ ER TABLET PO (09:28)
[2024-06-29] MEDS: guaiFENesin 12 HR 600 MG TABCR 1200 MG PO ×2 (09:28→22:13)
[2024-06-29] MEDS: busPIRone HCL 10 MG TABLET PO ×3 (09:28→17:47)
[2024-06-29] MEDS: QUEtiapine FUMARATE 25 MG TABLET PO ×2 (09:28→17:47)
[2024-06-29] MEDS: INSULIN ASPART (*BKC) 100 UNITS/ML SUB-Q ×4 (09:29→22:14)
[2024-06-29] MEDS: ENOXAPARIN 40 MG/0.4 ML SYRINGE SUB-Q (09:30)
[2024-06-29] MEDS: ARTIFICIAL TEARS OPHTH SOLN 15 ML BOTTLE 2 DROP RIGHT EYE ×4 (09:30→22:13)
[2024-06-29 11:40] LABS: Glucose Point of Care 227 mg/dl (65-105)
--- NOTE | 2024-06-29 14:32 | PC.NURSE ---
Patient noted to be holding a cloth in left hand. Cloth visibly soiled. This RN offered numerous times to replace cloth with new cloth. Patient refused upon every offer for a change of cloth.
--- NOTE | 2024-06-29 15:50 | P.PNIM_ITS ---
Progress Note: A&P Assessment and Plan (1) Right upper lobe pneumonia: Code(s): J18.9 - Pneumonia, unspecified organism Status: Acute Assessment and Plan: * chest x-ray showing right upper lobe pneumonia * respiratory panel positive for COVID * MRSA positive * continue remdesivir, Decadron, doxycycline, Rocephin * continue to wean O2 for sat greater than 92% * continue Duo-Nebs * urine strep, urine Legionella, mycoplasma are pending * continue guaifenesin (2) COVID: Code(s): U07.1 - COVID-19 Status: Acute Assessment and Plan: * respiratory panel positive for COVID * continue remdesivir * continue to wean O2 for sat greater than 92% 2 L nasal cannula (3) Type 2 diabetes mellitus: Code(s): E11.9 - Type 2 diabetes mellitus without complications Status: Acute Assessment and Plan: * Blood sugars ranging 205-227 * Hgb A1C 5.8 * Accu checks AC/HS * moderate dose SSI ordered * continue to hold metformin and glipizide * hypoglycemic protocol in place * Diabetic diet ordered (4) Fibromyalgia: Code(s): M79.7 - Fibromyalgia Status: Acute Assessment and Plan: * continue [place] 1 tablet p.o. t.i.d. * continue Neurontin (5) Chronic obstructive pulmonary disease: Code(s): J44.9 - Chronic obstructive pulmonary disease, unspecified Status: Acute Assessment and Plan: * continue Duo-Nebs * rescue inhaler on hold * continue to wean O2 for sat greater than 92% (6) Electrolyte abnormality: Code(s): E87.8 - Other disorders of electrolyte and fluid balance, not elsewhere classified Status: Acute Assessment and Plan: * hypomagnesemia, magnesium level 1.2-- will give 3 g of magnesium today * potassium 3.4, replaced with 40 mEq of potassium * continue to trend (7) Depression with anxiety: Code(s): F41.8 - Other specified anxiety disorders Status: Acute Assessment and Plan: * continue Lexapro and BuSpar (8) CHF (congestive heart failure): Code(s): I50.9 - Heart failure, unspecified Status: Acute Assessment and Plan: * continue home dose of Lasix and metolazone * Echo results pending Time Spent With Patient Time with patient: Greater than 35 minutes Subjective Date/time seen: 06/29/24 15:50 Interval history: Interval history: This is a 68-year-old female with a significant past medical history of COPD, type 2 diabetes mellitus, hyperthyroidism, kidney stones, fibromyalgia, depression, anxiety, chronic debility who presented from [place] with complaints of body ache and cough. Workup in the hospital included a chest x-ray which showed a right upper lobe pneumonia. Initial labs showed a white blood cell count of 10.5, hemoglobin 11.7, anion gap 14, hemoglobin A1c 5.8, blood sugar ranging 71-107, lactic acid 2.7> 1.8, troponin negative x2, C reactive protein 1.5. MRSA was positive. Respiratory panel was positive for COVID. Urine strep urine Legionella and mycoplasma are pending. Blood cultures were obtained and are pending, currently showing no growth on preliminary read. she was placed on 2 L nasal cannula due to hypoxia while in the ED. Patient was started on Decadron, remdesivir, azithromycin, Rocephin. Echocardiogram ordered. Subjective: Patient reports pain all over however this is chronic for her. She also reports a productive cough. She denies any fever, chills, nausea, vomiting, diarrhea, abdominal pain chest pain. Labs and imaging reviewed. Review of Systems Review of Systems: 12 systems were reviewed and are negativ e except for as per HPI. Exam Narrative: General: In no acute distress Head: atraumatic, no encephalopathy Eyes: PERRLA, sclera clear ENT: moist mucous membranes, nasal passages clear Neck: supple, no JVD, no adenopathy, trachea midline Cardiac: Normal S1 and S2. No murmur, gallops or friction rubs, peripheral pulses intact. Respiratory: Lungs coarse bilaterally, productive coughs, no adventitious lung sounds, currently on 2 L nasal cannula, no acute respiratory distress or use of accessory muscles seen. Gastrointestinal: soft, non-distended, non-tender, normoactive bowel sounds. : voiding without difficulty. Extremities: Contracture left with tremor, bilateral drop foot Skin: clean, dry, intact. No wounds or lesions. Neuro: Alert Psych: interactive Objective Data Vital Signs Vital Signs: Vital Signs - 24 hr 06/28/24 16:25 06/28/24 17:17 06/28/24 17:32 Temperature Pulse Rate 83 87 Respiratory Rate 13 20 Blood Pressure 109/51 L 113/55 L Pulse Oximetry 95 89 L 96 Oxygen Delivery Nasal Cannula Oxygen Flow Rate 2 Fraction of Inspired Oxygen 06/28/24 18:07 06/28/24 20:17 06/28/24 20:50 Temperature 100.7 F H Pulse Rate 90 96 89 Respiratory Rate 20 20 12 Blood Pressure 113/50 L 121/55 L 105/58 L Pulse Oximetry 95 97 94 Oxygen Delivery Oxygen Flow Rate Fraction of Inspired Oxygen 06/29/24 05:47 06/29/24 07:20 06/29/24 07:24 Temperature 97.1 F L Pulse Rate 79 Respiratory Rate 22 H Blood Pressure 127/71 Pulse Oximetry 93 89 L 91 Oxygen Delivery Room Air Nasal Cannula Oxygen Flow Rate 2 Fraction of Inspired Oxygen 21 28 06/29/24 07:24 06/29/24 07:30 06/29/24 08:00 Temperature 97.6 F Pulse Rate 83 80 88 Respiratory Rate 20 20 14 Blood Pressure 148/63 H Pulse Oximetry 96 Oxygen Delivery Oxygen Flow Rate Fraction of Inspired Oxygen 06/29/24 08:00 06/29/24 12:00 06/29/24 13:35 Temperature 97.6 F Pulse Rate 79 Respiratory Rate 20 Blood Pressure 129/68 Pulse Oximetry 93 93 95 Oxygen Delivery Room Air Nasal Cannula Oxygen Flow Rate 2 Fraction of Inspired Oxygen 28 06/29/24 13:35 06/29/24 13:44 Temperature Pulse Rate 76 77 Respiratory Rate 20 20 Blood Pressure Pulse Oximetry Oxygen Delivery Oxygen Flow Rate Fraction of Inspired Oxygen Intake/Output Intake/Output: Intake & Output 06/26/24 06/27/24 06/28/24 06/29/24 23:59 23:59 23:59 23:59 Intake Total 300 1198 Output Total 300 Balance 300 898 Meds/Results Medications: Active Medications Generic Name Dose Route Start Last Admin Trade Name Freq PRN Reason Stop Dose Admin Acetaminophen 650 mg 06/28/24 18:03 Acetaminophen 325 Mg Tablet PO Q4H PRN Mild Pain (1-3) or Fever Hydrocodone Bitart/Acetaminophen 1 tab 06/29/24 09:00 06/29/24 04:23 Hydrocodone/Acetaminophen (*Crx) 7.5-325 Mg Tablet PO 1 tab TID [facility] Administration Albuterol/Ipratropium 3 ml 06/28/24 20:00 06/29/24 13:35 Ipratropium 0.5 Mg/Albuterol Sulfate 2.5 Mg Ampul.Neb 3 Ml INHALATION 3 ml Q6HRT [facility] Administration Artificial Tears 2 drop 06/29/24 09:00 06/29/24 12:30 Artificial Tears Ophth Soln 15 Ml Bottle RIGHT EYE 2 drop QID [facility] Administration Aspirin 81 mg 06/29/24 09:00 06/29/24 09:27 Aspirin 81 Mg Enteric Tablet PO 81 mg QAM [facility] Administration Atorvastatin Calcium 20 mg 06/29/24 21:00 Atorvastatin 20 Mg Tablet PO HS [facility] Buspirone HCl 10 mg 06/29/24 09:00 06/29/24 12:30 Buspirone Hcl 10 Mg Tablet PO 10 mg TID [facility] Administration Cyanocobalamin 1,000 mcg 06/29/24 09:00 06/29/24 09:28 Cyanocobalamin 1,000 Mcg Tablet PO 1,000 mcg QAM [facility] Administration Dexamethasone 6 mg 06/29/24 08:00 06/29/24 09:27 Dexamethasone 2 Mg Tablet PO 07/08/24 08:01 6 mg DAILY@0800 [facility] Administration Dextrose 12.5 gm 06/28/24 22:23 Dextrose 50% 25 Gm/50 Ml Syringe IV PUSH PRN PRN Hypoglycemia Protocol Doxycycline Hyclate 100 mg 06/29/24 09:00 06/29/24 09:26 Doxycycline Hyclate 100 Mg Tablet PO 100 mg Q12HR [facility] Administration Enoxaparin Sodium 40 mg 06/29/24 09:00 06/29/24 09:30 Enoxaparin 40 Mg/0.4 Ml Syringe SUB-Q 40 mg DAILY [facility] Administration Escitalopram Oxalate 20 mg 06/29/24 09:00 06/29/24 09:27 Escitalopram Oxalate 10 Mg Tablet PO 20 mg DAILY [facility] Administration Furosemide 20 mg 06/29/24 09:00 06/29/24 09:28 Furosemide 20 Mg Tablet PO 20 mg DAILY [facility] Administration Gabapentin 600 mg 06/29/24 09:00 06/29/24 12:30 Gabapentin 300 Mg Capsule PO 600 mg TID [facility] Administration Glucagon 1 mg 06/28/24 22:23 Glucagon For Inj 1 Mg Vial IM PRN PRN Hypoglycemia Protocol Glucose 15 gm 06/28/24 22:23 Glucose Oral Gel 15 Gm Of Glucse In 37.5 Gm Tube PO PRN PRN Hypoglycemia Protocol Guaifenesin 1,200 mg 06/29/24 09:00 06/29/24 09:28 Guaifenesin 12 Hr 600 Mg Tabcr PO 1,200 mg Q12HR [facility] Administration Ceftriaxone Sodium 1 gm in 50 mls @ 100 mls/hr 06/28/24 16:40 06/29/24 12:31 Rocephin 1 Gm/Ns 50 Ml IVPB 100 mls/hr DAILY@1200 [facility] Administration Dextrose 1,000 mls @ 100 mls/hr 06/28/24 22:23 Dextrose 5% 1,000 Ml IVPB PRN PRN Hypoglycemia Protocol Remdesivir 100 mg in 250 mls @ 250 mls/hr 06/29/24 22:00 IVPB 07/02/24 22:59 Q24H [facility] Insulin Aspart 3 - 6 units 06/29/24 08:00 06/29/24 12:31 Insulin Aspart (*Bkc) 100 Units/Ml SUB-Q 3 units TIDWM [facility] Administration Protocol Insulin Aspart 1 - 3 units 06/29/24 21:00 Insulin Aspart (*Bkc) 100 Units/Ml SUB-Q HS [facility] Protocol Magnesium Oxide 400 mg 06/29/24 09:00 06/29/24 09:26 Magnesium Oxide 400 Mg Tablet PO 400 mg DAILY [facility] Administration Non-Formulary Medication 1 each 06/28/24 23:08 Nonformulary Nutritional Supplement XX 06/29/24 23:07 PRN PRN PROTOCOL Perflutren Lipid Microsphere 0 ml 06/28/24 22:23 Perflutren Lipid Microspheres 1.5 Ml Vial Diluted To 10 Ml Total Volume IV PUSH 07/01/24 22:23 ONCE PRN adequate visualization Protocol Potassium Chloride 20 meq 06/29/24 09:00 06/29/24 09:28 Potassium Chloride 20 Meq Er Tablet PO 20 meq DAILY [facility] Administration Quetiapine Fumarate 25 mg 06/29/24 09:00 06/29/24 09:28 Quetiapine Fumarate 25 Mg Tablet PO 25 mg BID [facility] Administration Ropinirole HCl 3 mg 06/29/24 09:00 06/29/24 12:30 Ropinirole Hcl 1 Mg Tablet PO 3 mg TID [facility] Administration Senna 8.6 mg 06/28/24 23:05 Sennosides 8.6 Mg Tablet PO BID PRN Constipation Trazodone HCl 25 mg 06/29/24 21:00 Trazodone Hcl 25 Mg Tablet PO HS [facility] Radiology Results: ITS Impressions Chest X-Ray 06/28/24 13:27 Impression: 1: Right upper lobe pneumonia. Labs Labs: Laboratory Results - last 24 hr 06/28/24 06/28/24 06/28/24 13:13 15:52 18:01 WBC RBC Hgb Hct MCV MCH MCHC RDW Plt Count MPV Sodium Potassium Chloride Carbon Dioxide Anion Gap BUN Creatinine Estim Creat Clear Calc Estimated GFR Glucose POC Capillary Glucose Hemoglobin A1c 5.8 H Lactic Acid Calcium Magnesium Ferritin Total Bilirubin AST ALT Alkaline Phosphatase Lactate Dehydrogenase Troponin I < 0.012 C-Reactive Protein 1.5 H Total Protein Albumin Procalcitonin TSH (Reflex) Nasal MRSA (PCR) Influenza A (RT-PCR) Negative Influenza B (RT-PCR) Negative RSV (RT-PCR) Negative SARS-CoV-2 RNA (RT-PCR) Positive A 06/28/24 06/28/24 06/28/24 18:05 19:34 23:47 WBC RBC Hgb Hct MCV MCH MCHC RDW Plt Count MPV Sodium Potassium Chloride Carbon Dioxide Anion Gap BUN Creatinine Estim Creat Clear Calc Estimated GFR Glucose POC Capillary Glucose 107 H Hemoglobin A1c Lactic Acid 2.7 H Calcium Magnesium Ferritin Total Bilirubin AST ALT Alkaline Phosphatase Lactate Dehydrogenase Troponin I < 0.012 C-Reactive Protein Total Protein Albumin Procalcitonin TSH (Reflex) Nasal MRSA (PCR) Influenza A (RT-PCR) Influenza B (RT-PCR) RSV (RT-PCR) SARS-CoV-2 RNA (RT-PCR) 06/29/24 06/29/24 06/29/24 00:07 00:15 05:46 WBC 7.4 RBC 4.27 Hgb 12.0 Hct 37.8 MCV 88.5 MCH 28.1 MCHC 31.7 L RDW 14.7 H Plt Count 240 MPV 9.2 Sodium 139 Potassium 3.4 Chloride 97 L Carbon Dioxide 26 Anion Gap 16 H BUN 15 Creatinine 0.63 L Estim Creat Clear Calc 67 Estimated GFR > 60 Glucose 312 H POC Capillary Glucose Hemoglobin A1c Lactic Acid 1.8 Calcium 9.0 Magnesium 1.2 L Ferritin 145.00 Total Bilirubin 0.5 AST 26 ALT 21 Alkaline Phosphatase 94 Lactate Dehydrogenase 129 Troponin I C-Reactive Protein Total Protein 8.0 Albumin 4.0 Procalcitonin 0.1 TSH (Reflex) 1.740 Nasal MRSA (PCR) Detected A* Influenza A (RT-PCR) Influenza B (RT-PCR) RSV (RT-PCR) SARS-CoV-2 RNA (RT-PCR) 06/29/24 06/29/24 07:43 11:18 WBC RBC Hgb Hct MCV MCH MCHC RDW Plt Count MPV Sodium Potassium Chloride Carbon Dioxide Anion Gap BUN Creatinine Estim Creat Clear Calc Estimated GFR Glucose POC Capillary Glucose 205 H 227 H Hemoglobin A1c Lactic Acid Calcium Magnesium Ferritin Total Bilirubin AST ALT Alkaline Phosphatase Lactate Dehydrogenase Troponin I C-Reactive Protein Total Protein Albumin Procalcitonin TSH (Reflex) Nasal MRSA (PCR) Influenza A (RT-PCR) Influenza B (RT-PCR) RSV (RT-PCR) SARS-CoV-2 RNA (RT-PCR) Quality VTE Prophylaxis VTE prophylaxis: pharmacologic ordered
[2024-06-29 16:27] LABS: Glucose Point of Care 234 mg/dl (65-105)
[2024-06-29] MEDS: metOLazone 2.5 MG TABLET PO (17:47)
[2024-06-29 20:31] LABS: Glucose Point of Care 210 mg/dl (65-105)
[2024-06-29] MEDS: traZODone HCL 25 MG TABLET PO (22:13)
[2024-06-29] MEDS: ATORVASTATIN 20 MG TABLET PO (22:13)
[2024-06-29] MEDS: REMDESIVIR 100 MG/NS 250 ML 100 MG/250 ML BAG 250 MG IVPB (22:14)
[2024-06-30] VITALS (10 sets, daily range): BP systolic 107–122; BP diastolic 46–56; PULSE 76–88; RESP 18–20; TEMP 36.4–36.6; O2SAT 93–99
[2024-06-30 07:23] LABS: Prothrombin Time 14.1 Seconds (11.1-14.7)
[2024-06-30 07:37] LABS: Alanine Aminotransferase 16 U/L (6-35); Albumin Level 3.8 g/dL (3.5-5.1); Alkaline Phosphatase 94 U/L (38-126); Aspartate Amino Transferase 34 U/L (14-36); Bilirubin,Total 0.5 mg/dL (0.2-1.3)
[2024-06-30 07:41] LABS: Glucose Point of Care 144 mg/dl (65-105)
[2024-06-30] MEDS: IPRATROPIUM 0.5 MG/ALBUTEROL SULFATE 2.5 MG AMPUL.NEB 3 ML INHALATION ×3 (07:58→19:57)
[2024-06-30 08:17] LABS: Basophils Absolute Auto 0.1 K/mm3 (0.0-0.1); Basophils Percent Auto 0.5 % (0.2-1.2); Eosinophils Percent Auto 0.3 % (0-4.4); Hematocrit 36.2 % (37.0-47.0); Hemoglobin 11.5 g/dL (12.0-15.0); Immature Granulocyte Absolute 0.05 K/mm3 (0.00-0.031); Immature Granulocyte Percent A 0.5 % (0-0.5); Lymphocytes Absolute Auto 3.62 K/mm3 (0.9-3.2); Lymphocytes Percent Auto 35.6 % (18.3-44.2); Mean Corpuscular HGB Conc 31.8 g/dl (32-36); Mean Corpuscular Volume 88.3 fl (80-100); Mean Platelet Volume 8.9 fl (7.4-10.4); Monocytes Absolute Auto 0.7 K/mm3 (0.1-0.6); Monocytes Percent Auto 6.7 % (2.6-8.5); Neutrophils Absolute Auto 5.8 K/mm3 (1.3-6.7); Neutrophils Percent Auto 56.4 % (45.5-73.1); Platelet Count Result 264 k/mm3 (150-375); Red Cell Distribution Width 14.8 % (11.5-14.5); White Blood Count 10.2 K/mm3 (4.5-10.0)
--- NOTE | 2024-06-30 08:22 | P.PNIM_ITS ---
Progress Note: A&P Assessment and Plan (1) Right upper lobe pneumonia: Code(s): J18.9 - Pneumonia, unspecified organism Status: Acute Assessment and Plan: * chest x-ray showing right upper lobe pneumonia * respiratory panel positive for COVID * MRSA positive * continue remdesivir, Decadron, doxycycline, Rocephin * continue to wean O2 for sat greater than 92% * continue Duo-Nebs * urine strep, urine Legionella, mycoplasma are pending * continue guaifenesin 2/2 * continue remdesivir, Decadron, doxycycline, Rocephin * continue to wean O2 for sat greater than 92% * continue Duo-Nebs * patient reports productive cough (2) COVID: Code(s): U07.1 - COVID-19 Status: Acute Assessment and Plan: * respiratory panel positive for COVID * continue remdesivir * continue to wean O2 for sat greater than 92% 2 L nasal cannula 2/2 * no change to current treatment plan (3) Type 2 diabetes mellitus: Code(s): E11.9 - Type 2 diabetes mellitus without complications Status: Acute Assessment and Plan: * Blood sugars ranging 205-227 * Hgb A1C 5.8 * Accu checks AC/HS * moderate dose SSI ordered * continue to hold metformin and glipizide * hypoglycemic protocol in place * Diabetic diet ordered 2/2 * Lantus 8 units at bedtime ordered * blood sugars ranging 144-235 (4) Fibromyalgia: Code(s): M79.7 - Fibromyalgia Status: Acute Assessment and Plan: * continue [place] 1 tablet p.o. t.i.d. * continue Neurontin 2/2 * no change to current treatment (5) Chronic obstructive pulmonary disease: Code(s): J44.9 - Chronic obstructive pulmonary disease, unspecified Status: Acute Assessment and Plan: * continue Duo-Nebs * rescue inhaler on hold * continue to wean O2 for sat greater than 92% 2/2 * no change to current treatment plan (6) Electrolyte abnormality: Code(s): E87.8 - Other disorders of electrolyte and fluid balance, not elsewhere classified Status: Acute Assessment and Plan: * hypomagnesemia, magnesium level 1.2-- will give 3 g of magnesium today * potassium 3.4, replaced with 40 mEq of potassium * continue to trend 2/2 * potassium 3.5, mag 1.8 * Will give 40 meq of KCL again today. (7) Depression with anxiety: Code(s): F41.8 - Other specified anxiety disorders Status: Acute Assessment and Plan: * continue Lexapro and BuSpar / * no change to current treatment plan (8) CHF (congestive heart failure): Code(s): I50.9 - Heart failure, unspecified Status: Acute Assessment and Plan: * continue home dose of Lasix and metolazone * Echo results pending 06/30 * echocardiogram showing normal LV systolic function with an estimated EF of 65-70%, grade 1 diastolic dysfunction * continue Lasix and metolazone (9) Open wound of left hand: Code(s): S61.402A - Unspecified open wound of left hand, initial encounter Status: Acute Assessment and Plan: 06/30 * open wound to left palm of her hand likely from contracture /pressure * wound nurse consulted Time Spent With Patient Time with patient: 25 - 35 minutes Subjective Date/time seen: 06/30/24 08:22 Interval history: Interval history: This is a 68-year-old female with a significant past medical history of COPD, type 2 diabetes mellitus, hyperthyroidism, kidney stones, fibromyalgia, depression, anxiety, chronic debility who presented from [place] with complaints of body ache and cough. Workup in the hospital included a chest x-ray which showed a right upper lobe pneumonia. Initial labs showed a white blood cell count of 10.5, hemoglobin 11.7, anion gap 14, hemoglobin A1c 5.8, blood sugar ranging 71-107, lactic acid 2.7> 1.8, troponin negative x2, C reactive protein 1.5. MRSA was positive. Respiratory panel was positive for COVID. Urine strep urine Legionella and mycoplasma are pending. Blood cultures were obtained and are pending, currently showing no growth on preliminary read. she was placed on 2 L nasal cannula due to hypoxia while in the ED. Patient was started on Decadron, remdesivir, azithromycin, Rocephin. Echocardiogram ordered. Subjective: patient reporting generalized pain today which is chronic for her. Nursing reports that she has a wound to the left palm of her hand from contracture. Labs and imaging reviewed. Review of Systems Review of Systems: 12 systems were reviewed and are negativ e except for as per HPI. Exam Narrative: General: In no acute distress Cardiac: Normal S1 and S2. No murmur, gallops or friction rubs, peripheral pulses intact. Respiratory: Lungs coarse bilaterally, productive coughs, no adventitious lung sounds, currently on 2 L nasal cannula, no acute respiratory distress or use of accessory muscles seen. Gastrointestinal: soft, non-distended, non-tender, normoactive bowel sounds. : voiding without difficulty. Extremities: Contracture left hand with tremor, bilateral drop foot Skin: Left palm of hand with open wound, dressing in place Neuro: Alert Psych: interactive, odd affect Objective Data Vital Signs Vital Signs: Vital Signs - 24 hr 06/29/24 12:00 06/29/24 13:35 06/29/24 13:35 Temperature 97.6 F Pulse Rate 79 76 Respiratory Rate 20 20 Blood Pressure 129/68 Pulse Oximetry 93 95 Oxygen Delivery Nasal Cannula Oxygen Flow Rate 2 Fraction of Inspired Oxygen 28 06/29/24 13:44 06/29/24 16:00 06/29/24 22:00 Temperature 98.1 F 97.8 F Pulse Rate 77 85 91 Respiratory Rate 20 16 20 Blood Pressure 127/56 L 141/61 H Pulse Oximetry 97 97 Oxygen Delivery Oxygen Flow Rate Fraction of Inspired Oxygen 06/30/24 05:16 06/30/24 07:58 06/30/24 07:58 Temperature 97.9 F Pulse Rate 85 84 Respiratory Rate 18 20 Blood Pressure 121/56 L Pulse Oximetry 96 93 Oxygen Delivery Nasal Cannula Oxygen Flow Rate 2 Fraction of Inspired Oxygen 06/30/24 08:11 Temperature Pulse Rate 88 Respiratory Rate 20 Blood Pressure Pulse Oximetry Oxygen Delivery Oxygen Flow Rate Fraction of Inspired Oxygen Intake/Output Intake/Output: Intake & Output 06/27/24 06/28/24 06/29/24 06/30/24 23:59 23:59 23:59 23:59 Intake Total 300 1538 550 Output Total 600 400 Balance 300 938 150 Meds/Results Medications: Active Medications Generic Name Dose Route Start Last Admin Trade Name Freq PRN Reason Stop Dose Admin Acetaminophen 650 mg 06/28/24 18:03 Acetaminophen 325 Mg Tablet PO Q4H PRN Mild Pain (1-3) or Fever Hydrocodone Bitart/Acetaminophen 1 tab 06/29/24 09:00 06/29/24 17:42 Hydrocodone/Acetaminophen (*Crx) 7.5-325 Mg Tablet PO Not Given TID [facility]ANGELISTA Albuterol/Ipratropium 3 ml 06/28/24 20:00 06/30/24 07:58 Ipratropium 0.5 Mg/Albuterol Sulfate 2.5 Mg Ampul.Neb 3 Ml INHALATION 3 ml Q6HRT [facility]ISTA Administration Artificial Tears 2 drop 06/29/24 09:00 06/29/24 22:13 Artificial Tears Ophth Soln 15 Ml Bottle RIGHT EYE 2 drop QID [facility]ANGELISTA Administration Aspirin 81 mg 06/29/24 09:00 06/29/24 09:27 Aspirin 81 Mg Enteric Tablet PO 81 mg QAM [facility]ISTA Administration Atorvastatin Calcium 20 mg 06/29/24 21:00 06/29/24 22:13 Atorvastatin 20 Mg Tablet PO 20 mg HS [facility] Administration Buspirone HCl 10 mg 06/29/24 09:00 06/29/24 17:47 Buspirone Hcl 10 Mg Tablet PO 10 mg TID [facility]ANGELISTA Administration Cyanocobalamin 1,000 mcg 06/29/24 09:00 06/29/24 09:28 Cyanocobalamin 1,000 Mcg Tablet PO 1,000 mcg QAM [facility]A Administration Dexamethasone 6 mg 06/29/24 08:00 06/29/24 09:27 Dexamethasone 2 Mg Tablet PO 07/08/24 08:01 6 mg DAILY@0800 [facility] Administration Dextrose 12.5 gm 06/28/24 22:23 Dextrose 50% 25 Gm/50 Ml Syringe IV PUSH PRN PRN Hypoglycemia Protocol Doxycycline Hyclate 100 mg 06/29/24 09:00 06/29/24 22:13 Doxycycline Hyclate 100 Mg Tablet PO 100 mg Q12HR [facility] Administration Enoxaparin Sodium 40 mg 06/29/24 09:00 06/29/24 09:30 Enoxaparin 40 Mg/0.4 Ml Syringe SUB-Q 40 mg DAILY [facility] Administration Escitalopram Oxalate 20 mg 06/29/24 09:00 06/29/24 09:27 Escitalopram Oxalate 10 Mg Tablet PO 20 mg DAILY [facility] Administration Furosemide 20 mg 06/29/24 09:00 06/29/24 09:28 Furosemide 20 Mg Tablet PO 20 mg DAILY [facility] Administration Gabapentin 600 mg 06/29/24 09:00 06/29/24 17:47 Gabapentin 300 Mg Capsule PO 600 mg TID [facility]ELISTA Administration Glucagon 1 mg 06/28/24 22:23 Glucagon For Inj 1 Mg Vial IM PRN PRN Hypoglycemia Protocol Glucose 15 gm 06/28/24 22:23 Glucose Oral Gel 15 Gm Of Glucse In 37.5 Gm Tube PO PRN PRN Hypoglycemia Protocol Guaifenesin 1,200 mg 06/29/24 09:00 06/29/24 22:13 Guaifenesin 12 Hr 600 Mg Tabcr PO 1,200 mg Q12HR [facility] Administration Ceftriaxone Sodium 1 gm in 50 mls @ 100 mls/hr 06/28/24 16:40 06/29/24 12:31 Rocephin 1 Gm/Ns 50 Ml IVPB 100 mls/hr DAILY@1200 [facility] Administration Dextrose 1,000 mls @ 100 mls/hr 06/28/24 22:23 Dextrose 5% 1,000 Ml IVPB PRN PRN Hypoglycemia Protocol Remdesivir 100 mg in 250 mls @ 250 mls/hr 06/29/24 22:00 06/29/24 22:14 IVPB 07/02/24 22:59 250 mls/hr Q24H [facility] Administration Insulin Aspart 3 - 6 units 06/29/24 08:00 06/29/24 17:42 Insulin Aspart (*Bkc) 100 Units/Ml SUB-Q 3 units TIDWM [facility]ISTA Administration Protocol Insulin Aspart 1 - 3 units 06/29/24 21:00 06/29/24 22:14 Insulin Aspart (*Bkc) 100 Units/Ml SUB-Q 1 units HS [facility] Administration Protocol Magnesium Oxide 400 mg 06/29/24 09:00 06/29/24 09:26 Magnesium Oxide 400 Mg Tablet PO 400 mg DAILY [facility] Administration Metolazone 2.5 mg 06/29/24 16:05 06/29/24 17:47 Metolazone 2.5 Mg Tablet PO 2.5 mg Q48HR [facility] Administration Perflutren Lipid Microsphere 0 ml 06/28/24 22:23 Perflutren Lipid Microspheres 1.5 Ml Vial Diluted To 10 Ml Total Volume IV PUSH 07/01/24 22:23 ONCE PRN adequate visualization Protocol Potassium Chloride 20 meq 06/29/24 09:00 06/29/24 09:28 Potassium Chloride 20 Meq Er Tablet PO 20 meq DAILY [facility] Administration Quetiapine Fumarate 25 mg 06/29/24 09:00 06/29/24 17:47 Quetiapine Fumarate 25 Mg Tablet PO 25 mg BID [facility] Administration Ropinirole HCl 3 mg 06/29/24 09:00 06/29/24 17:47 Ropinirole Hcl 1 Mg Tablet PO 3 mg TID [facility] Administration Senna 8.6 mg 06/28/24 23:05 Sennosides 8.6 Mg Tablet PO BID PRN Constipation Trazodone HCl 25 mg 06/29/24 21:00 06/29/24 22:13 Trazodone Hcl 25 Mg Tablet PO 25 mg HS [facility] Administration Radiology Results: ITS Impressions Chest X-Ray 06/28/24 13:27 Impression: 1: Right upper lobe pneumonia. Labs Labs: Laboratory Results - last 24 hr 06/29/24 06/29/24 06/29/24 11:18 16:19 20:26 PT INR POC Capillary Glucose 227 H 234 H 210 H Total Bilirubin Direct Bilirubin AST ALT Alkaline Phosphatase Total Protein Albumin 06/30/24 06/30/24 06:40 07:34 PT 14.1 INR 1.0 POC Capillary Glucose 144 H Total Bilirubin 0.5 Direct Bilirubin 0.0 AST 34 ALT 16 Alkaline Phosphatase 94 Total Protein 8.0 Albumin 3.8 Quality VTE Prophylaxis VTE prophylaxis: pharmacologic ordered
[2024-06-30] MEDS: ESCITALOPRAM OXALATE 10 MG TABLET 20 MG PO (10:16)
[2024-06-30] MEDS: guaiFENesin 12 HR 600 MG TABCR 1200 MG PO ×2 (10:17→21:56)
[2024-06-30] MEDS: ASPIRIN 81 MG ENTERIC TABLET PO (10:17)
[2024-06-30] MEDS: FUROSEMIDE 20 MG TABLET PO (10:17)
[2024-06-30] MEDS: CYANOCOBALAMIN 1,000 MCG TABLET 1000 MCG PO (10:17)
[2024-06-30] MEDS: rOPINIRole HCL 1 MG TABLET 3 MG PO ×3 (10:18→18:13)
[2024-06-30] MEDS: dexAMETHasone 2 MG TABLET 6 MG PO (10:18)
[2024-06-30] MEDS: GABAPENTIN 300 MG CAPSULE 600 MG PO ×3 (10:19→18:11)
[2024-06-30] MEDS: DOXYCYCLINE HYCLATE 100 MG TABLET PO ×2 (10:20→21:56)
[2024-06-30] MEDS: MAGNESIUM OXIDE 400 MG TABLET PO (10:21)
[2024-06-30] MEDS: busPIRone HCL 10 MG TABLET PO ×3 (10:21→18:11)
[2024-06-30] MEDS: POTASSIUM CHLORIDE 20 MEQ ER TABLET PO (10:21)
[2024-06-30] MEDS: QUEtiapine FUMARATE 25 MG TABLET PO ×2 (10:22→18:11)
[2024-06-30] MEDS: HYDROcodone/acetaminophen (*CRX) 7.5-325 MG TABLET 1 TAB PO ×3 (10:22→18:11)
[2024-06-30] MEDS: ENOXAPARIN 40 MG/0.4 ML SYRINGE SUB-Q (10:22)
[2024-06-30 11:43] LABS: Glucose Point of Care 235 mg/dl (65-105)
[2024-06-30] MEDS: INSULIN ASPART (*BKC) 100 UNITS/ML SUB-Q ×3 (13:40→22:04)
[2024-06-30 14:13] LABS: Alanine Aminotransferase 16 U/L (6-35); Albumin Level 3.8 g/dL (3.5-5.1); Alkaline Phosphatase 91 U/L (38-126); Anion Gap 13 mmol/L (4-12); Aspartate Amino Transferase 43 U/L (14-36); Bilirubin,Total 0.4 mg/dL (0.2-1.3); Blood Urea Nitrogen 14 mg/dL (7-17); Calcium 9.1 mg/dL (8.4-10.2); Carbon Dioxide 29 mmol/L (22-30); Chloride 99 mmol/L (98-107); Estimated CRCL calculation 78 ml/min; Estimated Glomerular Filt Rate > 60; Glucose 139 mg/dL (65-110); Magnesium 1.8 mg/dL (1.6-2.3); Potassium 3.5 mmol/L (3.4-5.0); Sodium 141 mmol/L (137-145)
[2024-06-30 17:11] LABS: Glucose Point of Care 225 mg/dl (65-105)
[2024-06-30] MEDS: POTASSIUM CHLORIDE 20 MEQ ER TABLET 40 MEQ PO (18:12)
[2024-06-30] MEDS: ARTIFICIAL TEARS OPHTH SOLN 15 ML BOTTLE 2 DROP RIGHT EYE ×2 (18:13→18:17)
[2024-06-30 21:47] LABS: Glucose Point of Care 226 mg/dl (65-105)
[2024-06-30] MEDS: ATORVASTATIN 20 MG TABLET PO (21:56)
[2024-06-30] MEDS: traZODone HCL 25 MG TABLET PO (21:56)
[2024-06-30] MEDS: REMDESIVIR 100 MG/NS 250 ML 100 MG/250 ML BAG 250 MG IVPB (21:56)
[2024-06-30] MEDS: INSULIN GLARGINE (*BKC) 100 UNITS/ML 8 UNITS SUB-Q (22:05)
[2024-07-01] VITALS (11 sets, daily range): BP systolic 110–131; BP diastolic 42–64; PULSE 80–88; RESP 18–20; TEMP 36.2–36.6; O2SAT 91–97
[2024-07-01] MEDS: IPRATROPIUM 0.5 MG/ALBUTEROL SULFATE 2.5 MG AMPUL.NEB 3 ML INHALATION ×4 (02:16→21:04)
[2024-07-01 02:44] LABS: Glucose Point of Care 131 mg/dl (65-105)
[2024-07-01] MEDS: ARTIFICIAL TEARS OPHTH SOLN 15 ML BOTTLE 2 DROP RIGHT EYE ×4 (03:06→20:49)
[2024-07-01 08:03] LABS: Glucose Point of Care 127 mg/dl (65-105)
[2024-07-01 09:19] LABS: Basophils Percent Auto 0.4 % (0.2-1.2); Eosinophils Percent Auto 0.4 % (0-4.4); Hematocrit 37.8 % (37.0-47.0); Immature Granulocyte Absolute 0.04 K/mm3 (0.00-0.031); Immature Granulocyte Percent A 0.4 % (0-0.5); Lymphocytes Absolute Auto 4.32 K/mm3 (0.9-3.2); Lymphocytes Percent Auto 39.8 % (18.3-44.2); Mean Corpuscular HGB Conc 31.7 g/dl (32-36); Mean Corpuscular Hemoglobin 28.7 pg (26-34); Mean Corpuscular Volume 90.4 fl (80-100); Mean Platelet Volume 8.8 fl (7.4-10.4); Monocytes Absolute Auto 0.7 K/mm3 (0.1-0.6); Monocytes Percent Auto 6.5 % (2.6-8.5); Neutrophils Absolute Auto 5.7 K/mm3 (1.3-6.7); Neutrophils Percent Auto 52.5 % (45.5-73.1); Platelet Count Result 254 k/mm3 (150-375); Red Blood Count 4.18 M/mm3 (4.2-5.4); White Blood Count 10.9 K/mm3 (4.5-10.0)
[2024-07-01 09:41] LABS: Alanine Aminotransferase 25 U/L (6-35); Alkaline Phosphatase 91 U/L (38-126); Anion Gap 11 mmol/L (4-12); Aspartate Amino Transferase 54 U/L (14-36); Bilirubin,Total 0.4 mg/dL (0.2-1.3); Blood Urea Nitrogen 18 mg/dL (7-17); Calcium 9.3 mg/dL (8.4-10.2); Carbon Dioxide 31 mmol/L (22-30); Chloride 98 mmol/L (98-107); Estimated CRCL calculation 81 ml/min; Estimated Glomerular Filt Rate > 60; Glucose 132 mg/dL (65-110); Sodium 140 mmol/L (137-145)
--- NOTE | 2024-07-01 09:50 | P.PNIM_ITS ---
Progress Note: A&P Assessment and Plan (1) Right upper lobe pneumonia: Code(s): J18.9 - Pneumonia, unspecified organism Status: Acute Assessment and Plan: * chest x-ray showing right upper lobe pneumonia * respiratory panel positive for COVID * MRSA positive * continue remdesivir, Decadron, doxycycline, Rocephin * continue to wean O2 for sat greater than 92% * continue Duo-Nebs * urine strep, urine Legionella, mycoplasma are pending * continue guaifenesin 2/2 * continue remdesivir, Decadron, doxycycline, Rocephin * continue to wean O2 for sat greater than 92% * continue Duo-Nebs * patient reports productive cough 2/3 * Will change to Augmentin today, continue doxycycline * currently on room air (2) COVID: Code(s): U07.1 - COVID-19 Status: Acute Assessment and Plan: * respiratory panel positive for COVID * continue remdesivir * continue to wean O2 for sat greater than 92% 2 L nasal cannula 2/2 * no change to current treatment plan (3) Type 2 diabetes mellitus: Code(s): E11.9 - Type 2 diabetes mellitus without complications Status: Acute Assessment and Plan: * Blood sugars ranging 205-227 * Hgb A1C 5.8 * Accu checks AC/HS * moderate dose SSI ordered * continue to hold metformin and glipizide * hypoglycemic protocol in place * Diabetic diet ordered 2/2 * Lantus 8 units at bedtime ordered * blood sugars ranging 144-235 2/3 * blood sugars ranging 127-132 * no change to current treatment plan (4) Fibromyalgia: Code(s): M79.7 - Fibromyalgia Status: Acute Assessment and Plan: * continue [place] 1 tablet p.o. t.i.d. * continue Neurontin 2/2 * no change to current treatment (5) Chronic obstructive pulmonary disease: Code(s): J44.9 - Chronic obstructive pulmonary disease, unspecified Status: Acute Assessment and Plan: * continue Duo-Nebs * rescue inhaler on hold * continue to wean O2 for sat greater than 92% 2/2 * no change to current treatment plan (6) Electrolyte abnormality: Code(s): E87.8 - Other disorders of electrolyte and fluid balance, not elsewhere classified Status: Acute Assessment and Plan: * hypomagnesemia, magnesium level 1.2-- will give 3 g of magnesium today * potassium 3.4, replaced with 40 mEq of potassium * continue to trend 2/2 * potassium 3.5, mag 1.8 * Will give 40 meq of KCL again today. 2/3 * potassium 4.0 today * no need for replacement * continue to trend (7) Depression with anxiety: Code(s): F41.8 - Other specified anxiety disorders Status: Acute Assessment and Plan: * continue Lexapro and BuSpar 2/2 * no change to current treatment plan (8) CHF (congestive heart failure): Code(s): I50.9 - Heart failure, unspecified Status: Acute Assessment and Plan: * continue home dose of Lasix and metolazone * Echo results pending 06/30 * echocardiogram showing normal LV systolic function with an estimated EF of 65-70%, grade 1 diastolic dysfunction * continue Lasix and metolazone (9) Open wound of left hand: Code(s): S61.402A - Unspecified open wound of left hand, initial encounter Status: Acute Assessment and Plan: 2/ * open wound to left palm of her hand likely from contracture /pressure * wound nurse consulted 2/ * wound nurse unable to assess palm of hand and is recommending plastics referral * Will do diluted Betadine/sterile water soak to left hand and apply clean dressing * CT of the left hand with contrast ordered to assess for any abscess or osteomyelitis. Time Spent With Patient Time with patient: 25 - 35 minutes Subjective Date/time seen: 07/01/24 09:50 Interval history: Interval history: This is a 68-year-old female with a significant past medical history of COPD, type 2 diabetes mellitus, hyperthyroidism, kidney stones, fibromyalgia, depression, anxiety, chronic debility who presented from [facility] with complaints of body ache and cough. Workup in the hospital included a chest x-ray which showed a right upper lobe pneumonia. Initial labs showed a white blood cell count of 10.5, hemoglobin 11.7, anion gap 14, hemoglobin A1c 5.8, blood sugar ranging 71-107, lactic acid 2.7> 1.8, troponin negative x2, C reactive protein 1.5. MRSA was positive. Respiratory panel was positive for COVID. Urine strep urine Legionella and mycoplasma are pending. Blood cultures were obtained and are pending, currently showing no growth on preliminary read. she was placed on 2 L nasal cannula due to hypoxia while in the ED. Patient was started on Decadron, remdesivir, azithromycin, Rocephin. Echocardiogram ordered. Subjective: patient denies any complaints today. She is currently on room. Labs and imaging reviewed. Review of Systems Review of Systems: 12 systems were reviewed and are negativ e except for as per HPI. Exam Narrative: General: In no acute distress Cardiac: Normal S1 and S2. No murmur, gallops or friction rubs, peripheral pulses intact. Respiratory: Lungs mild crackles, productive coughs, no adventitious lung sounds , currently on room air Gastrointestinal: soft, non-distended, non-tender, normoactive bowel sounds. : voiding without difficulty. Extremities: Contracture left hand with tremor, bilateral drop foot Skin: Left palm of hand with open wound, dressing in place Neuro: Alert Psych: interactive, odd affect Objective Data Vital Signs Vital Signs: Vital Signs - 24 hr 06/30/24 13:08 06/30/24 13:20 06/30/24 14:00 Temperature 97.5 F L Pulse Rate 76 84 80 Respiratory Rate 20 20 20 Blood Pressure 107/49 L Pulse Oximetry 97 Oxygen Delivery Oxygen Flow Rate 06/30/24 19:58 06/30/24 20:00 06/30/24 20:07 Temperature Pulse Rate 85 86 Respiratory Rate 20 20 Blood Pressure Pulse Oximetry 99 Oxygen Delivery Nasal Cannula Oxygen Flow Rate 2 06/30/24 22:00 07/01/24 02:17 07/01/24 02:26 Temperature 97.7 F Pulse Rate 84 80 82 Respiratory Rate 20 20 18 Blood Pressure 122/46 L Pulse Oximetry 99 Oxygen Delivery Oxygen Flow Rate 07/01/24 06:00 07/01/24 08:10 07/01/24 08:10 Temperature 97.9 F Pulse Rate 88 88 Respiratory Rate 20 20 Blood Pressure 124/46 L Pulse Oximetry 94 96 Oxygen Delivery Nasal Cannula Oxygen Flow Rate 2 07/01/24 08:24 Temperature Pulse Rate 81 Respiratory Rate 20 Blood Pressure Pulse Oximetry Oxygen Delivery Oxygen Flow Rate Intake/Output Intake/Output: Intake & Output 06/28/24 06/29/24 06/30/24 07/01/24 23:59 23:59 23:59 23:59 Intake Total 300 1838 2218 570 Output Total 600 600 250 Balance 300 1238 1618 320 Meds/Results Medications: Active Medications Generic Name Dose Route Start Last Admin Trade Name Freq PRN Reason Stop Dose Admin Acetaminophen 650 mg 06/28/24 18:03 Acetaminophen 325 Mg Tablet PO Q4H PRN Mild Pain (1-3) or Fever Hydrocodone Bitart/Acetaminophen 1 tab 06/29/24 09:00 06/30/24 18:11 Hydrocodone/Acetaminophen (*Crx) 7.5-325 Mg Tablet PO 1 tab TID EVANGELISTA Administration Albuterol/Ipratropium 3 ml 06/28/24 20:00 07/01/24 08:10 Ipratropium 0.5 Mg/Albuterol Sulfate 2.5 Mg Ampul.Neb 3 Ml INHALATION 3 ml Q6HRT EVANGELISTA Administration Artificial Tears 2 drop 06/29/24 09:00 07/01/24 03:06 Artificial Tears Ophth Soln 15 Ml Bottle RIGHT EYE 2 drop QID EVANGELISTA Administration Aspirin 81 mg 06/29/24 09:00 06/30/24 10:17 Aspirin 81 Mg Enteric Tablet PO 81 mg QAM EVANGELISTA Administration Atorvastatin Calcium 20 mg 06/29/24 21:00 06/30/24 21:56 Atorvastatin 20 Mg Tablet PO 20 mg HS EVANGELISTA Administration Buspirone HCl 10 mg 06/29/24 09:00 06/30/24 18:11 Buspirone Hcl 10 Mg Tablet PO 10 mg TID EVANGELISTA Administration Cyanocobalamin 1,000 mcg 06/29/24 09:00 06/30/24 10:17 Cyanocobalamin 1,000 Mcg Tablet PO 1,000 mcg QAM EVANGELISTA Administration Dexamethasone 6 mg 06/29/24 08:00 06/30/24 10:18 Dexamethasone 2 Mg Tablet PO 07/08/24 08:01 6 mg DAILY@0800 EVANGELISTA Administration Dextrose 12.5 gm 06/28/24 22:23 Dextrose 50% 25 Gm/50 Ml Syringe IV PUSH PRN PRN Hypoglycemia Protocol Doxycycline Hyclate 100 mg 06/29/24 09:00 06/30/24 21:56 Doxycycline Hyclate 100 Mg Tablet PO 100 mg Q12HR EVANGELISTA Administration Enoxaparin Sodium 40 mg 06/29/24 09:00 06/30/24 10:22 Enoxaparin 40 Mg/0.4 Ml Syringe SUB-Q 40 mg DAILY EVANGELISTA Administration Escitalopram Oxalate 20 mg 06/29/24 09:00 06/30/24 10:16 Escitalopram Oxalate 10 Mg Tablet PO 20 mg DAILY EVANGELISTA Administration Furosemide 20 mg 06/29/24 09:00 06/30/24 10:17 Furosemide 20 Mg Tablet PO 20 mg DAILY EVANGELISTA Administration Gabapentin 600 mg 06/29/24 09:00 06/30/24 18:11 Gabapentin 300 Mg Capsule PO 600 mg TID EVANGELISTA Administration Glucagon 1 mg 06/28/24 22:23 Glucagon For Inj 1 Mg Vial IM PRN PRN Hypoglycemia Protocol Glucose 15 gm 06/28/24 22:23 Glucose Oral Gel 15 Gm Of Glucse In 37.5 Gm Tube PO PRN PRN Hypoglycemia Protocol Guaifenesin 1,200 mg 06/29/24 09:00 06/30/24 21:56 Guaifenesin 12 Hr 600 Mg Tabcr PO 1,200 mg Q12HR EVANGELISTA Administration Ceftriaxone Sodium 1 gm in 50 mls @ 100 mls/hr 06/28/24 16:40 06/30/24 13:38 Rocephin 1 Gm/Ns 50 Ml IVPB 100 mls/hr DAILY@1200 EVANGELISTA Administration Dextrose 1,000 mls @ 100 mls/hr 06/28/24 22:23 Dextrose 5% 1,000 Ml IVPB PRN PRN Hypoglycemia Protocol Remdesivir 100 mg in 250 mls @ 250 mls/hr 06/29/24 22:00 06/30/24 22:56 IVPB 07/02/24 22:59 Infused Q24H EVANGELISTA Infusion Insulin Aspart 3 - 6 units 06/29/24 08:00 06/30/24 18:16 Insulin Aspart (*Bkc) 100 Units/Ml SUB-Q 3 units TIDWM [facility] Administration Protocol Insulin Aspart 1 - 3 units 06/29/24 21:00 06/30/24 22:04 Insulin Aspart (*Bkc) 100 Units/Ml SUB-Q 1 units HS [facility] Administration Protocol Insulin Glargine 8 units 06/30/24 21:00 06/30/24 22:05 Insulin Glargine (*Bkc) 100 Units/Ml SUB-Q 8 units HS [facility]ANGELISTA Administration Magnesium Oxide 400 mg 06/29/24 09:00 06/30/24 10:21 Magnesium Oxide 400 Mg Tablet PO 400 mg DAILY EVANGELISTA Administration Metolazone 2.5 mg 06/29/24 16:05 06/29/24 17:47 Metolazone 2.5 Mg Tablet PO 2.5 mg Q48HR EVANGELISTA Administration Perflutren Lipid Microsphere 0 ml 06/28/24 22:23 Perflutren Lipid Microspheres 1.5 Ml Vial Diluted To 10 Ml Total Volume IV PUSH 07/01/24 22:23 ONCE PRN adequate visualization Protocol Potassium Chloride 20 meq 06/29/24 09:00 06/30/24 10:21 Potassium Chloride 20 Meq Er Tablet PO 20 meq DAILY EVANGELISTA Administration Quetiapine Fumarate 25 mg 06/29/24 09:00 06/30/24 18:11 Quetiapine Fumarate 25 Mg Tablet PO 25 mg BID EVANGELISTA Administration Ropinirole HCl 3 mg 06/29/24 09:00 06/30/24 18:13 Ropinirole Hcl 1 Mg Tablet PO 3 mg TID EVANGELISTA Administration Senna 8.6 mg 06/28/24 23:05 Sennosides 8.6 Mg Tablet PO BID PRN Constipation Trazodone HCl 25 mg 06/29/24 21:00 06/30/24 21:56 Trazodone Hcl 25 Mg Tablet PO 25 mg HS EVANGELISTA Administration Radiology Results: ITS Impressions Chest X-Ray 06/28/24 13:27 Impression: 1: Right upper lobe pneumonia. Labs Labs: Laboratory Results - last 24 hr 06/30/24 06/30/24 06/30/24 06:40 11:31 17:08 WBC RBC Hgb Hct MCV MCH MCHC RDW Plt Count MPV Immature Gran % (Auto) Neut % (Auto) Lymph % (Auto) [place] % (Auto) Eos % (Auto) Baso % (Auto) Lymph # (Auto) [place] # (Auto) Eos # (Auto) Baso # (Auto) Abs Immat Gran (auto) Absolute Neuts (auto) Absolute Nucleated RBC Nucleated RBC % Sodium 141 Potassium 3.5 Chloride 99 Carbon Dioxide 29 Anion Gap 13 H BUN 14 Creatinine 0.53 L Estim Creat Clear Calc 78 Estimated GFR > 60 Glucose 139 H POC Capillary Glucose 235 H 225 H Calcium 9.1 Magnesium 1.8 Total Bilirubin 0.4 AST 43 H ALT 16 Alkaline Phosphatase 91 Total Protein 8.0 Albumin 3.8 06/30/24 07/01/24 07/01/24 20:49 02:37 07:40 WBC RBC Hgb Hct MCV MCH MCHC RDW Plt Count MPV Immature Gran % (Auto) Neut % (Auto) Lymph % (Auto) [place] % (Auto) Eos % (Auto) Baso % (Auto) Lymph # (Auto) [place] # (Auto) Eos # (Auto) Baso # (Auto) Abs Immat Gran (auto) Absolute Neuts (auto) Absolute Nucleated RBC Nucleated RBC % Sodium Potassium Chloride Carbon Dioxide Anion Gap BUN Creatinine Estim Creat Clear Calc Estimated GFR Glucose POC Capillary Glucose 226 H 131 H 127 H Calcium Magnesium Total Bilirubin AST ALT Alkaline Phosphatase Total Protein Albumin 07/01/24 08:51 WBC 10.9 H RBC 4.18 L Hgb 12.0 Hct 37.8 MCV 90.4 MCH 28.7 MCHC 31.7 L RDW 15.0 H Plt Count 254 MPV 8.8 Immature Gran % (Auto) 0.4 Neut % (Auto) 52.5 Lymph % (Auto) 39.8 [place] % (Auto) 6.5 Eos % (Auto) 0.4 Baso % (Auto) 0.4 Lymph # (Auto) 4.32 H [place] # (Auto) 0.7 H Eos # (Auto) 0.0 Baso # (Auto) 0.0 Abs Immat Gran (auto) 0.04 H Absolute Neuts (auto) 5.7 Absolute Nucleated RBC 0.000 Nucleated RBC % 0.0 Sodium 140 Potassium 4.0 Chloride 98 Carbon Dioxide 31 H Anion Gap 11 BUN 18 H Creatinine 0.51 L Estim Creat Clear Calc 81 Estimated GFR > 60 Glucose 132 H POC Capillary Glucose Calcium 9.3 Magnesium Total Bilirubin 0.4 AST 54 H ALT 25 Alkaline Phosphatase 91 Total Protein 8.0 Albumin 4.0 Quality VTE Prophylaxis VTE prophylaxis: pharmacologic ordered
[2024-07-01] MEDS: FUROSEMIDE 20 MG TABLET PO (10:18)
[2024-07-01] MEDS: ESCITALOPRAM OXALATE 10 MG TABLET 20 MG PO (10:18)
[2024-07-01] MEDS: guaiFENesin 12 HR 600 MG TABCR 1200 MG PO ×2 (10:18→20:47)
[2024-07-01] MEDS: dexAMETHasone 2 MG TABLET 6 MG PO (10:18)
[2024-07-01] MEDS: rOPINIRole HCL 1 MG TABLET 3 MG PO ×3 (10:18→17:02)
[2024-07-01] MEDS: ASPIRIN 81 MG ENTERIC TABLET PO (10:18)
[2024-07-01] MEDS: MAGNESIUM OXIDE 400 MG TABLET PO (10:19)
[2024-07-01] MEDS: QUEtiapine FUMARATE 25 MG TABLET PO ×2 (10:19→17:03)
[2024-07-01] MEDS: metOLazone 2.5 MG TABLET PO (10:19)
[2024-07-01] MEDS: DOXYCYCLINE HYCLATE 100 MG TABLET PO ×2 (10:19→20:48)
[2024-07-01] MEDS: POTASSIUM CHLORIDE 20 MEQ ER TABLET PO (10:19)
[2024-07-01] MEDS: HYDROcodone/acetaminophen (*CRX) 7.5-325 MG TABLET 1 TAB PO ×3 (10:19→17:04)
[2024-07-01] MEDS: CYANOCOBALAMIN 1,000 MCG TABLET 1000 MCG PO (10:19)
[2024-07-01] MEDS: GABAPENTIN 300 MG CAPSULE 600 MG PO ×3 (10:19→17:03)
[2024-07-01] MEDS: busPIRone HCL 10 MG TABLET PO ×3 (10:20→17:03)
[2024-07-01] MEDS: ENOXAPARIN 40 MG/0.4 ML SYRINGE SUB-Q (10:20)
[2024-07-01 11:58] LABS: Glucose Point of Care 198 mg/dl (65-105)
[2024-07-01 16:57] LABS: Glucose Point of Care 264 mg/dl (65-105)
[2024-07-01] MEDS: INSULIN ASPART (*BKC) 100 UNITS/ML SUB-Q (17:04)
[2024-07-01] MEDS: AMOXICILLIN/CLAVULANATE K 875-125 MG TAB 1 TABLET PO (20:47)
[2024-07-01] MEDS: ATORVASTATIN 20 MG TABLET PO (20:48)
[2024-07-01] MEDS: traZODone HCL 25 MG TABLET PO (20:50)
[2024-07-01] MEDS: INSULIN GLARGINE (*BKC) 100 UNITS/ML 8 UNITS SUB-Q (20:52)
[2024-07-01] MEDS: POVIDONE-IODINE 10% SOLUTION 118 ML BOTTLE 100 ML TOPICAL (21:04)
[2024-07-01 21:05] LABS: Glucose Point of Care 163 mg/dl (65-105)
[2024-07-01] MEDS: WATER FOR IRRIGATION, STERILE 500 ML BOTTLE IRRIGATION (21:17)
[2024-07-01] MEDS: WATER FOR IRRIGATION, STERILE 1,000 ML BOTTLE 1000 ML (21:29)
[2024-07-01] MEDS: REMDESIVIR 100 MG/NS 250 ML 100 MG/250 ML BAG 250 MG IVPB (23:12)
[2024-07-02] VITALS (8 sets, daily range): BP systolic 116–120; BP diastolic 55–64; PULSE 77–88; RESP 16–20; TEMP 36.7; O2SAT 97–98; BMI 26.6
[2024-07-02] MEDS: IPRATROPIUM 0.5 MG/ALBUTEROL SULFATE 2.5 MG AMPUL.NEB 3 ML INHALATION ×3 (03:19→13:19)
[2024-07-02 06:18] LABS: Alanine Aminotransferase 32 U/L (6-35); Albumin Level 3.8 g/dL (3.5-5.1); Alkaline Phosphatase 79 U/L (38-126); Aspartate Amino Transferase 61 U/L (14-36); Bilirubin,Total 0.4 mg/dL (0.2-1.3)
[2024-07-02 06:31] LABS: INR 1.1; Prothrombin Time 14.8 Seconds (11.1-14.7)
[2024-07-02 08:17] LABS: Basophils Percent Auto 0.3 % (0.2-1.2); Eosinophils Percent Auto 0.4 % (0-4.4); Hematocrit 34.2 % (37.0-47.0); Hemoglobin 10.7 g/dL (12.0-15.0); Immature Granulocyte Absolute 0.03 K/mm3 (0.00-0.031); Immature Granulocyte Percent A 0.3 % (0-0.5); Lymphocytes Absolute Auto 3.57 K/mm3 (0.9-3.2); Lymphocytes Percent Auto 39.8 % (18.3-44.2); Mean Corpuscular HGB Conc 31.3 g/dl (32-36); Mean Corpuscular Hemoglobin 28.2 pg (26-34); Mean Corpuscular Volume 90.2 fl (80-100); Mean Platelet Volume 9.3 fl (7.4-10.4); Monocytes Absolute Auto 0.6 K/mm3 (0.1-0.6); Monocytes Percent Auto 6.3 % (2.6-8.5); Neutrophils Absolute Auto 4.7 K/mm3 (1.3-6.7); Neutrophils Percent Auto 52.9 % (45.5-73.1); Platelet Count Result 243 k/mm3 (150-375); Red Blood Count 3.79 M/mm3 (4.2-5.4); Red Cell Distribution Width 15.2 % (11.5-14.5)
[2024-07-02 08:21] LABS: Glucose Point of Care 134 mg/dl (65-105)
[2024-07-02 08:33] LABS: Anion Gap 13 mmol/L (4-12); Blood Urea Nitrogen 17 mg/dL (7-17); Calcium 9.5 mg/dL (8.4-10.2); Carbon Dioxide 29 mmol/L (22-30); Chloride 95 mmol/L (98-107); Estimated CRCL calculation 78 ml/min; Estimated Glomerular Filt Rate > 60; Glucose 117 mg/dL (65-110); Potassium 3.4 mmol/L (3.4-5.0); Sodium 137 mmol/L (137-145)
[2024-07-02] MEDS: ASPIRIN 81 MG ENTERIC TABLET PO (08:41)
[2024-07-02] MEDS: GABAPENTIN 300 MG CAPSULE 600 MG PO ×3 (08:41→17:01)
[2024-07-02] MEDS: AMOXICILLIN/CLAVULANATE K 875-125 MG TAB 1 TABLET PO (08:42)
[2024-07-02] MEDS: dexAMETHasone 2 MG TABLET 6 MG PO (08:42)
[2024-07-02] MEDS: rOPINIRole HCL 1 MG TABLET 3 MG PO ×3 (08:42→17:01)
[2024-07-02] MEDS: DOXYCYCLINE HYCLATE 100 MG TABLET PO (08:43)
[2024-07-02] MEDS: MAGNESIUM OXIDE 400 MG TABLET PO (08:43)
[2024-07-02] MEDS: guaiFENesin 12 HR 600 MG TABCR 1200 MG PO (08:43)
[2024-07-02] MEDS: busPIRone HCL 10 MG TABLET PO ×3 (08:43→17:01)
[2024-07-02] MEDS: FUROSEMIDE 20 MG TABLET PO (08:43)
[2024-07-02] MEDS: POTASSIUM CHLORIDE 20 MEQ ER TABLET PO (08:43)
[2024-07-02] MEDS: HYDROcodone/acetaminophen (*CRX) 7.5-325 MG TABLET 1 TAB PO ×3 (08:43→17:01)
[2024-07-02] MEDS: CYANOCOBALAMIN 1,000 MCG TABLET 1000 MCG PO (08:43)
[2024-07-02] MEDS: ESCITALOPRAM OXALATE 10 MG TABLET 20 MG PO (09:02)
[2024-07-02] MEDS: ENOXAPARIN 40 MG/0.4 ML SYRINGE SUB-Q (09:02)
[2024-07-02] MEDS: QUEtiapine FUMARATE 25 MG TABLET PO ×2 (09:04→17:01)
[2024-07-02 11:50] LABS: Glucose Point of Care 269 mg/dl (65-105)
[2024-07-02] MEDS: INSULIN ASPART (*BKC) 100 UNITS/ML SUB-Q ×2 (12:21→17:00)
[2024-07-02] MEDS: ARTIFICIAL TEARS OPHTH SOLN 15 ML BOTTLE 2 DROP RIGHT EYE (12:24)
--- NOTE | 2024-07-02 13:11 | P.DS_ITS ---
DS: Admitting Diagnosis Discharge Date 07/02/24 Admitting Diagnosis right upper lobe pneumonia COVID hypoxia type 2 diabetes mellitus fibromyalgia COPD DS: Discharge Diagnosis Discharge Diagnosis (1) Right upper lobe pneumonia: Code(s): J18.9 - Pneumonia, unspecified organism Status: Acute (2) COVID: Code(s): U07.1 - COVID-19 Status: Acute (3) Type 2 diabetes mellitus: Code(s): E11.9 - Type 2 diabetes mellitus without complications Status: Acute (4) Fibromyalgia: Code(s): M79.7 - Fibromyalgia Status: Acute (5) Chronic obstructive pulmonary disease: Code(s): J44.9 - Chronic obstructive pulmonary disease, unspecified Status: Acute (6) Electrolyte abnormality: Code(s): E87.8 - Other disorders of electrolyte and fluid balance, not elsewhere classif ied Status: Acute (7) Depression with anxiety: Code(s): F41.8 - Other specified anxiety disorders Status: Acute (8) CHF (congestive heart failure): Code(s): I50.9 - Heart failure, unspecified Status: Acute (9) Open wound of left hand: Code(s): S61.402A - Unspecified open wound of left hand, initial encounter Status: Acute DS: Summary Hospital Course Reason for hospitalization: right upper lobe pneumonia COVID hypoxia type 2 diabetes mellitus fibromyalgia COPD Hospital Course: This is a 68-year-old female with a significant past medical history of COPD, ty pe 2 diabetes mellitus, hyperthyroidism, kidney stones, fibromyalgia, depression, anxiety, chronic debility who presented from [facility] with complaints of body ache and cough. Workup in the hospital included a chest x-ray which showed a right upper lobe pneumonia. Initial labs showed a white blood cell count of 10.5, hemoglobin 11.7, anion gap 14, hemoglobin A1c 5.8, blood sugar ranging 71-107, lactic acid 2.7> 1.8, troponin negative x2, C reactive protein 1.5. MRSA was positive. Respiratory panel was positive for COVID. Urine strep urine Legionella and mycoplasma are pending. Blood cultures were obtained and are pending, currently showing no growth on preliminary read. she was placed on 2 L nasal cannula due to hypoxia while in the ED. Patient was started on Decadron, remdesivir, azithromycin, Rocephin. she was switched to Augmentin and Rocephin was discontinued yesterday on 07/01/2024. She finished a full course of remdesivir and Decadron 5 days while inpatient. She was noted to have a wound to the palm of her left hand which is contractured. We sent her for CT scan which did not show any evidence of fracture or soft tissue abscess or osteomyelitis however this was a very difficult exam due to her contracture. We did do a Betadine and sterile water soak and was able to wrap with a new dressing while she was inpatient. She is stable for discharge at this time. She will need to finish her Augmentin and azithromycin course and then follow up with her primary in 1 week. final diagnosis: acute respiratory failure with hypoxia, community-acquired pneumonia, COVID 19 Status at Discharge Cognitive/behavioral status at discharge: alert, odd affect Functional status at discharge: bed bound Overall status at discharge: patient is progressing back to baseline Time Spent with Patient Time attestation: Total time spent providing and/or coordinating discharge services: Time spent: Greater than 30 minutes Exam Narrative: General: In no acute distress Cardiac: Normal S1 and S2. No murmur, gallops or friction rubs, peripheral pulse s intact. Respiratory: Lungs mild crackles, productive coughs, no adventitious lung sounds , currently on room air Gastrointestinal: soft, non-distended, non-tender, normoactive bowel sounds. : voiding without difficulty. Extremities: Contracture left hand with tremor, bilateral drop foot Skin: Left palm of hand with open wound, dressing in place Neuro: Alert Psych: interactive, odd affect DS: Data Data Completed and Pending Completed studies during hospitalization: left hand CT chest x-ray Pending studies at discharge: blood cultures Labs on day of discharge: Labs from last 24 hours 07/02/24 07/02/24 07/02/24 11:40 08:04 05:24 WBC 9.0 RBC 3.79 L Hgb 10.7 L Hct 34.2 L MCV 90.2 MCH 28.2 MCHC 31.3 L RDW 15.2 H Plt Count 243 MPV 9.3 Immature Gran % (Auto) 0.3 Neut % (Auto) 52.9 Lymph % (Auto) 39.8 [place] % (Auto) 6.3 Eos % (Auto) 0.4 Baso % (Auto) 0.3 Lymph # (Auto) 3.57 H [place] # (Auto) 0.6 Eos # (Auto) 0.0 Baso # (Auto) 0.0 Abs Immat Gran (auto) 0.03 Absolute Neuts (auto) 4.7 Absolute Nucleated RBC 0.000 Nucleated RBC % 0.0 PT 14.8 H INR 1.1 Sodium 137 Potassium 3.4 Chloride 95 L Carbon Dioxide 29 Anion Gap 13 H BUN 17 Creatinine 0.53 L Estim Creat Clear Calc 78 Estimated GFR > 60 Glucose 117 H POC Capillary Glucose 269 H 134 H Calcium 9.5 Total Bilirubin 0.4 Direct Bilirubin 0.0 AST 61 H ALT 32 Alkaline Phosphatase 79 Total Protein 7.0 Albumin 3.8 07/01/24 07/01/24 20:45 16:52 WBC RBC Hgb Hct MCV MCH MCHC RDW Plt Count MPV Immature Gran % (Auto) Neut % (Auto) Lymph % (Auto) [place] % (Auto) Eos % (Auto) Baso % (Auto) Lymph # (Auto) [place] # (Auto) Eos # (Auto) Baso # (Auto) Abs Immat Gran (auto) Absolute Neuts (auto) Absolute Nucleated RBC Nucleated RBC % PT INR Sodium Potassium Chloride Carbon Dioxide Anion Gap BUN Creatinine Estim Creat Clear Calc Estimated GFR Glucose POC Capillary Glucose 163 H 264 H Calcium Total Bilirubin Direct Bilirubin AST ALT Alkaline Phosphatase Total Protein Albumin Preliminary micro results at discharge 06/28/24 18:05 Blood Culture - Preliminary Blood 06/28/24 18:05 Blood Culture - Preliminary Blood Procedures/Treatments: none Discharge Plan Discharge Attending physician on discharge: [facility] Discharging Clinician: Shonda Dominguez Anticipated Discharge Date/Time: 07/02/24 13:04 [facility] Disposition[facility] Activity: as tolerated Diet: as tolerated and heart healthy Discharge Instructions: * patient finished full course of remdesivir and Decadron * she will need to finish her doxycycline and her Augmentin as prescribed even if she is feeling better * she can continue Mucinex * follow-up with primary care in 1 week Patient Instructions: Antibiotic Form, Doxycycline (By mouth), Amoxicillin/Clavulanate Potassium (By mouth), Bacterial Pneumonia (DC), COVID-19 and Chronic Health Conditions (DC) Patient Language: Irish Stand Alone Forms: General Discharge Information, [facility] Discharge Follow-up/Referrals: UNKNOWN,DOCTOR [Primary Care Provider] - Keep Reg. Scheduled Appt. Discharge Medications: New guaifenesin [Mucus Relief ER] 600 mg Tablet Extended Release 12hr 1,200 mg PO Q12HR Qty: 20 0RF doxycycline hyclate 100 mg Tablet 100 mg PO Q12HR Qty: 7 0RF amoxicillin-pot clavulanate 875-125 mg tablet 1 tablet PO Q12H Qty: 7 0RF Continued Artificial Tears 2 drp RIGHT EYE QID quetiapine 25 mg tablet 25 mg PO BID metolazone 2.5 mg tablet See Rx Instructions .ROUTE .COMPLEX Rx Instructions: 2.5 mg orally every other day. gabapentin 600 mg tablet 600 mg PO TID atorvastatin 20 mg tablet 20 mg PO HS trazodone 50 mg tablet 25 mg PO HS ropinirole 3 mg tablet 3 mg PO TID metformin 1,000 mg tablet 1,000 mg PO BID buspirone 7.5 mg tablet 10 mg PO TID furosemide 20 mg tablet 20 mg PO DAILY albuterol sulfate 90 mcg/actuation HFA aerosol inhaler See Rx Instructions .ROUTE .COMPLEX PRN (Reason: sob) Rx Instructions: 1-2 puffs Q8 PRN For SOB ondansetron 4 mg tablet,disintegrating 4 mg PO Q8H PRN (Reason: Nausea And Vomiting) glipizide 5 mg tablet 2.5 mg PO BID escitalopram oxalate 20 mg tablet 20 mg PO DAILY naloxone 4 mg/actuation spray,non-aerosol See Rx Instructions .ROUTE .COMPLEX Rx Instructions: 1 spray intranasally, use as directed for opioid overdose. Milk of Magnesia 30 ml PO DAILY PRN (Reason: Constipation) acetaminophen 650 mg PO Q6H PRN (Reason: Fever Or Pain) krill [id number] 1 cap PO HS senna 8.6 mg PO BID PRN (Reason: Constipation) hydrocodone-acetaminophen 7.5-325 mg Tablet 1 tablet PO TID Qty: 30 0RF aspirin 81 mg Tablet,Delayed Release (Dr/Ec) 81 mg PO QAM Qty: 30 0RF cyanocobalamin (vitamin B-12) [Vitamin B-12] 1,000 mcg Tablet 1,000 mcg PO QAM Qty: 30 0RF magnesium oxide 400 mg (241.3 mg magnesium) Tablet 400 mg PO DAILY Qty: 30 0RF potassium chloride [K-Tab] 20 mEq Tablet Extended Release 20 meq PO DAILY Qty: 30 0RF Date of admission: 06/30/24 11:26 Primary Care Provider: UNKNOWN,DOCTOR Admitting Provider: Prashanth Monae Attending physician on admission: Shonda Dominguez Condition: Improved
[2024-07-02 16:29] LABS: Glucose Point of Care 287 mg/dl (65-105)
[2024-07-02] MEDS: REMDESIVIR 100 MG/NS 250 ML 100 MG/250 ML BAG 250 MG IVPB (17:01)
[2024-07-03 22:53] LABS: Pneumococcal Antigen Urine NOT DETECTED
[2024-07-04 17:48] LABS: Mycoplasma IgM Antibody Titer 52 U/mL
== END 2024-07-02 20:00 | DRG 177 ==
LOC: ANHED 18:13 → ANH3MEDSUR 20:01
PROVIDERS: Emergency Medicine; Physician Assistant; Admitting Provider General Practice; Emergency Provider Emergency Medicine; Visit Provider Nurse Practitioner Acute Care
DX: U07.1 COVID-19 (principal); J18.9 Pneumonia, unspecified organism; J96.01 Acute respiratory failure with hypoxia; J44.0 Chronic obstructive pulmonary disease with (acute) lower respiratory infection; I50.9 Heart failure, unspecified; I25.10 Atherosclerotic heart disease of native coronary artery without angina pectoris; S61.402A Unspecified open wound of left hand, initial encounter; E83.42 Hypomagnesemia; E11.9 Type 2 diabetes mellitus without complications; E78.5 Hyperlipidemia, unspecified; E53.8 Deficiency of other specified B group vitamins; E03.9 Hypothyroidism, unspecified; R53.81 Other malaise; M79.7 Fibromyalgia; M21.371 Foot drop, right foot; M21.372 Foot drop, left foot; G25.81 Restless legs syndrome; F41.9 Anxiety disorder, unspecified; F17.210 Nicotine dependence, cigarettes, uncomplicated; Z79.82 Long term (current) use of aspirin
CPT/HCPCS: 36415; 71045; 73201; 80048; 80053; 80076; 82728; 82948; 83036; 83605; 83615; 83690; 83735; 84145; 84443; 84484; 85025; 85027; 85610; 85730; 86140; 86738; 87040; 87449; 87637; 87641; 87899; 93005; 93306; 94640; 96365; 96366; 96372; 96375; 96376; 99285; A9270; G0378; J0248; J0456; J0696; J1100; J1650; J1815; J3475; J8540; Q9967

== ENCOUNTER 2025-04-13 20:48 | Emergency (ER) | payer MEDICARE, MEDICAID, SELFPAY ==
--- NOTE | ~2025-04-13 | CT_ITS ---
EXAMINATION: CTA chest PE abdomen pel DATE: 04/14/2025 00:20 INDICATION: Chest pain. Shortness of breath. Generalized abdominal pain. TECHNIQUE: Computed tomography angiography (CTA) of the chest was performed with 100 mL Omnipaque-350 intravenous contrast timed to evaluate the pulmonary arteries. Coronal maximum intensity projection 3D-reconstructions were created by the technologist. Computed tomography (CT) of the abdomen and pelvis was performed with intravenous contrast. Automated exposure control and iterative reconstruction technique were employed. The dose-length product was 1063.16 mGy-cm. COMPARISON: CT abdomen and pelvis 11/09/2023 FINDINGS: CTA chest: There is elevation of left hemidiaphragm. There is mild atelectasis in right upper lobe. There are dependent airspace opacities in left lung lower lobe with volume loss. There is mild atelectasis in lingula. There is a small left pleural effusion. The heart size is normal. There are coronary artery calcifications. There are calcifications of the aortic valve. No pericardial effusion. There is no pulmonary embolus. Aortic atherosclerosis is noted. There is mild thoracic spondylosis. There is a chronic compression fracture of T11. CT abdomen and pelvis: The liver and spleen are normal. There are changes of cholecystectomy. The pancreas and adrenal glands are normal. There are cysts in the kidneys measuring up to 7 mm on the left. There are no dilated loops of bowel. There are changes of right hemicolectomy. There are no pathologically enlarged lymph nodes. There is no free intraperitoneal fluid. There is mild lumbar spondylosis. IMPRESSION: 1. No pulmonary embolus. 2. Left lower lobe airspace opacities with volume loss, consistent with atelectasis or less likely pneumonia. 3. Small left pleural effusion. Reviewed, dictated and finalized at location E. ER [employer] SERV[employer] ASSOCIATE IMPRESSION: 1. No pulmonary embolus. 2. Left lower lobe airspace opacities with volume loss, consistent with atelect asis or less likely pneumonia. 3. Small left pleural effusion.
--- NOTE | ~2025-04-13 | CT_ITS ---
CT HEAD NON-CONTRAST Clinical History: martinez Comparison: 11/09/2023 Technique: Unenhanced axial images skull base to vertex Coronal, sagittal reformats CT images acquired with automatic exposure control for dose reduction DLP: 984 mGy-cm Findings: Mild global atrophy. Mild white matter changes, typically chronic microvascular ischemic disease. Sulci, ventricles: Unremarkable. No intracerebral hemorrhage. No evidence acute territorial infarct. No mass effect, midline shift. Bony calvarium intact. Visualized paranasal sinuses: Clear. Mastoid air cells: Clear. IMPRESSION: 1. No acute intracranial findings. Reviewed, dictated and finalized at location R. ATED PAD BUFFER
--- NOTE | ~2025-04-13 | XR_ITS ---
EXAMINATION: XR chest 1V portable DATE: 04/13/2025 21:32 INDICATION: Chest pain TECHNIQUE: A single frontal view of the chest was obtained. COMPARISON: 06/28/2024 FINDINGS: The right upper lobe appears improved in aeration. The left hemidiaphragm is elevated. Left basilar consolidation with effusion and/or atelectatic changes may be present. The remainder the exam is unchanged. IMPRESSION: 1. Left basilar consolidative and/or atelectatic process with probable small effusion. Findings should be followed radiographically until clear. Reviewed, dictated and finalized at location A. FSHEET CORRECTOR IMPRESSION: 1. Left basilar consolidative and/or atelectatic process with probable small ef fusion. Findings should be followed radiographically until clear.
[2025-04-13 20:48] VITALS: BP 145/73; PULSE 62; RESP 20; TEMP 36.8; O2SAT 94
--- NOTE | 2025-04-13 20:53 | ECG_ITS ---
Test Date: 2025-04-13 20:56:58 Measurements Intervals [place] Rate: 60 P: 31 MN: 148 QRS: 31 QRSD: 94 T: 66 QT: 417 QTc: 417 Interpretive Statements SINUS RHYTHM Electronically Signed On 04-14-2025 00:13:24 [employer]ONTLOAD DRIVER by Fidel Michael D.O
[2025-04-13 21:18] LABS: Hematocrit 36.4 % (37.0-47.0); Hemoglobin 11.7 g/dL (12.0-15.0); Immature Granulocyte Percent A 0.2 % (0-0.5); Lymphocytes Absolute Auto 4.61 K/mm3 (0.9-3.2); Mean Corpuscular HGB Conc 32.1 g/dl (32-36); Mean Corpuscular Hemoglobin 29.7 pg (26-34); Mean Corpuscular Volume 92.4 fl (80-100); Nucleated Red Blood Cells Absolute Auto 0.000 K/mm3 (0.0-0.012); Nucleated Red Blood Cells Perc 0.0 % (0.0-0.2); Platelet Count Result 134 k/mm3 (150-375); Red Blood Count 3.94 M/mm3 (4.2-5.4); White Blood Count 9.4 K/mm3 (4.5-10.0)
[2025-04-13 21:28] LABS: INR 1.0; Prothrombin Time 13.3 Seconds (11.1-14.7)
[2025-04-13 21:29] LABS: Partial Thromboplastin Time 23.6 Seconds (22.3-36.8)
[2025-04-13 21:33] LABS: Alanine Aminotransferase 25 U/L (6-35); Albumin Level 3.7 g/dL (3.5-5.1); Alkaline Phosphatase 64 U/L (38-126); Anion Gap 6 mmol/L (4-12); Aspartate Amino Transferase 33 U/L (14-36); Bilirubin,Total 0.4 mg/dL (0.2-1.3); Blood Urea Nitrogen 10 mg/dL (7-17); Calcium 8.5 mg/dL (8.4-10.2); Carbon Dioxide 26 mmol/L (22-30); Chloride 107 mmol/L (98-107); Estimated CRCL calculation 66 ml/min; Estimated Glomerular Filt Rate > 60; Glucose 85 mg/dL (65-110); Lipase 114 U/L (23-300); Potassium 4.4 mmol/L (3.4-5.0); Sodium 139 mmol/L (137-145); Total Protein 6.3 g/dL (6.3-8.2)
[2025-04-13 21:43] LABS: Troponin I < 0.012 ng/mL (0.000-0.034)
[2025-04-13 23:03] LABS: NT Pro B Type Natriuretic Pept 137 pg/mL (19.9-100)
--- NOTE | 2025-04-13 23:40 | ECG_ITS ---
Test Date: 2025-04-13 23:48:43 Measurements Intervals [place] Rate: 62 P: 31 NE: 138 QRS: 24 QRSD: 110 T: 69 QT: 439 QTc: 449 Interpretive Statements SINUS RHYTHM Compared to ECG 04/13/2025 20:56:58 No significant changes Electronically Signed On 04-14-2025 11:22:59 [employer]ED [employer] AND [employer]MBAL[employer] by Fidel Michael D.O
--- NOTE | 2025-04-13 23:57 | ED.GENADULT ---
HPI - General Adult General Chief complaint: Chest Pain Stated complaint: CP & LEA Time Seen by Provider: 04/13/25 21:00 History of Present Illness HPI narrative: This is a 69-year-old [facility] with chronic debility was bed-bound presenting for chest pain. Patient says that she developed chest pain earlier today. It is a central pain that is dull, nonradiating moderate intensity and constant. She has never had pain like this before there are no exacerbating alleviating factors. She denies fevers chills shortness of breath productive cough or abdominal pain. Related Data Home Medications ?Medication ?Instructions ?Recorded ?Confirmed ?Last Taken ?Type Artificial Tears 2 drp RIGHT EYE QID 11/09/23 06/28/24 06/27/24 History Milk of Magnesia 30 ml PO DAILY PRN Constipation 11/09/23 06/28/24 06/27/24 History acetaminophen 650 mg PO Q6H PRN Fever Or Pain 11/09/23 06/28/24 06/28/24 History albuterol sulfate 90 mcg/actuation See Rx Instructions .Route 11/09/23 06/28/24 06/27/24 History aerosol inhaler .COMPLEX PRN sob atorvastatin 20 mg tablet 20 mg PO HS 11/09/23 06/28/24 06/27/24 History buspirone 7.5 mg tablet 10 mg PO TID 11/09/23 06/28/24 06/27/24 History escitalopram oxalate 20 mg tablet 20 mg PO DAILY 11/09/23 06/28/24 06/27/24 History furosemide 20 mg tablet 20 mg PO DAILY 11/09/23 06/28/24 06/27/24 History gabapentin 600 mg tablet 600 mg PO TID 11/09/23 06/28/24 06/27/24 History glipizide 5 mg tablet 2.5 mg PO BID 11/09/23 06/28/24 06/27/24 History krill eey-[id number]-5-dha-epa 1 cap PO HS 11/09/23 06/28/24 06/27/24 History metformin 1,000 mg tablet 1,000 mg PO BID 11/09/23 06/28/24 06/27/24 History metolazone 2.5 mg tablet See Rx Instructions .Route .COMPLEX 11/09/23 06/28/24 06/27/24 History naloxone 4 mg/actuation nasal spray See Rx Instructions .Route .COMPLEX 11/09/23 06/28/24 06/27/24 History ondansetron 4 mg disintegrating 4 mg PO Q8H PRN Nausea And Vomiting 11/09/23 06/28/24 06/27/24 History tablet quetiapine 25 mg tablet 25 mg PO BID 11/09/23 06/28/24 06/27/24 History ropinirole 3 mg tablet 3 mg PO TID 11/09/23 06/28/24 06/27/24 History senna 8.6 mg PO BID PRN Constipation 11/09/23 06/28/24 06/27/24 History trazodone 50 mg tablet 25 mg PO HS 11/09/23 06/28/24 06/27/24 History Allergies Allergy/AdvReac Type Severity Reaction Status Date / Time No Known Allergies Allergy Verified 11/09/23 17:20 [facility] Past Medical History Medical History Fibromyalgia Kidney stones Type 2 diabetes mellitus Coronary artery disease Chronic obstructive pulmonary disease Restless leg syndrome Hypertension Depression with anxiety Tobacco abuse Vitamin B12 deficiency Hypothyroidism Surgical History Surgical History History of open reduction and internal fixation (ORIF) procedure repair left ankle fracture History of exploratory laparotomy for perforated bowel per patient report History of hysterectomy History of inguinal hernia repair History of cholecystectomy History of cardiac catheterization Family History Family History Father Family history of premature coronary heart disease, Onset Age: 69 Patient's father is Mother Family history of malignant neoplasm of breast in first degree relative Social History Social History Social History: Surrogate medical decision maker: Ant Acosta, spouse. Code status: Full code. Smoking packs per day: 1 Smoking cigarettes per day: 20.0 Years smoked: 30 Smoking pack-years: 30.00 Smoking status: Current every day smoker Tobacco type: cigarettes Smoking end date: 06/28/23 Alcohol intake: never Substance use type: does not use Do You Feel Safe in your Home?: Yes Lack of Transportation: No Lack of Food: Never True Current Housing: I Have Housing Concerned About Future Housing: Decline to Answer Difficulty Paying Gas/Electric Bills: No Difficulty Paying for Meds: No Currently Unemployed: No Education: Associate Degree Difficulty w/ Childcare or Family Care: No Living arrangements: [facility] Additional living arrangements comments: Resident of [facility]. Spiritual care concerns: No Exam Narrative: APPEARANCE: Chronically unwell appearing Head: atraumatic. EYES: EOMI, NOSE: Atraumatic NECK: Trachea midline RESPIRATORY: No increased rate of breathing clear to auscultation, no oxygen requirements CARDIOVASCULAR: RRR, no peripheral edema ABDOMINAL: Non-distended soft nontender no guarding rebound MUSCULOSKELETAl: No obvious deformities NEURO: Alert. Severe generalized weakness, patient can wiggle fingers and toes SKIN:: Warm, dry. Normal color PSYCHIATRIC: Normal affect Course Vital Signs Vital signs: Vital Signs Temperature 98.2 F 04/13/25 20:48 Pulse Rate 62 04/13/25 20:48 Respiratory Rate 20 04/13/25 20:48 Blood Pressure 145/73 H 04/13/25 20:48 Pulse Oximetry 94 04/13/25 20:48 Oxygen Delivery Room Air 04/13/25 20:48 Temperature 98.2 F 04/13/25 20:48 Pulse Rate 62 04/13/25 20:48 Respiratory Rate 20 04/13/25 20:48 Blood Pressure 145/73 H 04/13/25 20:48 Pulse Oximetry 94 04/13/25 20:48 Oxygen Delivery Room Air 04/13/25 20:48 Medical Decision Making [facility] Narrative Medical decision making narrative: -Course: 69-year-old female presenting with chest pain and headache. Physical exam she is chronically unwell appearing and is chronically bed-bound. She is able to move all 4 extremities which appears to be her baseline. She is not in any respiratory distress, not requiring supplemental oxygen. She is not tachycardic. CT chest abdomen pelvis was significant for some left lower lobe consolidation with trace pleural effusion. Patient says she has had pneumonia on off for several months. She does not appear to have any active symptoms of pneumonia such as fevers, productive cough, elevated white count, tachycardia syndrome. Unclear if this is a new infection or resolving pneumonia. The rest of her workup was unremarkable. I discussed admission versus discharge with the patient and she [facility] be [facility]. Her vital signs are stable. She is not requiring supplemental oxygen or in respiratory distress. She will be placed on oral antibiotics to cover pneumonia and will be given return precautions if she develops worsening chest pain shortness of breath. Patient is agreeable to plan. -DDX includes but is not limited to: ACS, pneumonia, PE, pleurisy, chest wall pain -Independent interpretation studies: White count 9.4. Hemoglobin 11.7. Kidney function baseline. Troponin undetectable x2. BNP 137. Imaging reviewed. Independent EKG interpretation: Rhythm [sinus], Rate [60], [place] -[normal], [place] -[normal], QRS [narrow], QTC [normal], T waves -[negative for concerning inversions], ST Segments - [Negative for concerning elevations] Final interpretations: [Normal Sinus Rhythm] Vital Signs Vital Signs: Vital Signs Temperature 98.2 F 04/13/25 20:48 Pulse Rate 62 04/13/25 20:48 Respiratory Rate 20 04/13/25 20:48 Blood Pressure 145/73 H 04/13/25 20:48 Pulse Oximetry 94 04/13/25 20:48 Oxygen Delivery Room Air 04/13/25 20:48 Temperature 98.2 F 04/13/25 20:48 Pulse Rate 62 04/13/25 20:48 Respiratory Rate 20 04/13/25 20:48 Blood Pressure 145/73 H 04/13/25 20:48 Pulse Oximetry 94 04/13/25 20:48 Oxygen Delivery Room Air 04/13/25 20:48 Lab Data 04/13/25 21:12 04/13/25 21:12 Labs: Lab Results 04/13/25 04/13/25 04/13/25 Range/Units 21:11 21:12 23:41 WBC 9.4 (4.5-10.0) K/mm3 RBC 3.94 L (4.2-5.4) M/mm3 Hgb 11.7 L (12.0-15.0) g/dL Hct 36.4 L (37.0-47.0) % MCV 92.4 (80-100) fl MCH 29.7 (26-34) pg MCHC 32.1 (32-36) g/dl RDW 13.9 (11.5-14.5) % Plt Count 134 L (150-375) k/mm3 MPV 9.9 (7.4-10.4) fl Immature Gran % (Auto) 0.2 (0-0.5) % Neut % (Auto) 41.3 L (45.5-73.1) % Lymph % (Auto) 49.2 H (18.3-44.2) % [place] % (Auto) 6.0 (2.6-8.5) % Eos % (Auto) 2.9 (0-4.4) % Baso % (Auto) 0.4 (0.2-1.2) % Lymph # (Auto) 4.61 H (0.9-3.2) K/mm3 [place] # (Auto) 0.6 (0.1-0.6) K/mm3 Eos # (Auto) 0.3 (0-0.3) K/mm3 Baso # (Auto) 0.0 (0.0-0.1) K/mm3 Abs Immat Gran (auto) 0.02 (0.00-0.031) K/mm3 Absolute Neuts (auto) 3.9 (1.3-6.7) K/mm3 Absolute Nucleated RBC 0.000 (0.0-0.012) K/mm3 Nucleated RBC % 0.0 (0.0-0.2) % PT 13.3 (11.1-14.7) Seconds INR 1.0 APTT 23.6 (22.3-36.8) Seconds Sodium 139 (137-145) mmol/L Potassium 4.4 (3.4-5.0) mmol/L Chloride 107 (98-107) mmol/L Carbon Dioxide 26 (22-30) mmol/L Anion Gap 6 (4-12) mmol/L BUN 10 D (7-17) mg/dL Creatinine 0.63 L (0.7-1.0) mg/dL Estim Creat Clear Calc 66 ml/min Estimated GFR > 60 (59 - ) Glucose 85 (65-110) mg/dL Calcium 8.5 (8.4-10.2) mg/dL Total Bilirubin 0.4 (0.2-1.3) mg/dL AST 33 (14-36) U/L ALT 25 (6-35) U/L Alkaline Phosphatase 64 (38-126) U/L Troponin I < 0.012 Pending (0.000-0.034) ng/mL NT-Pro-B Natriuret Pep 137 H (19.9-100) pg/mL Total Protein 6.3 (6.3-8.2) g/dL Albumin 3.7 (3.5-5.1) g/dL Lipase 114 (23-300) U/L Discharge Plan Discharge Clinical Impression: Pneumonia Patient Disposition: Home Condition: Stable Instructions: Antibiotic Form, Pneumonia (ED) Additional Instructions: You were seen in the emergency department for chest pain. Your CT showed have pneumonia. Please take the antibiotics as instructed. If you develop worsening symptoms such as chest pain worsening difficulty breathing, oxygen requirements or fevers please return ED for re-evaluation. Patient Language: Liberian Prescriptions: New amoxicillin-pot clavulanate 875-125 mg tablet 1 tablet PO Q12H Qty: 20 0RF doxycycline hyclate 100 mg capsule 100 mg PO DAILY Qty: 20 0RF No Action Artificial Tears 2 drp RIGHT EYE QID quetiapine 25 mg tablet 25 mg PO BID metolazone 2.5 mg tablet See Rx Instructions .ROUTE .COMPLEX Rx Instructions: 2.5 mg orally every other day. gabapentin 600 mg tablet 600 mg PO TID atorvastatin 20 mg tablet 20 mg PO HS trazodone 50 mg tablet 25 mg PO HS ropinirole 3 mg tablet 3 mg PO TID metformin 1,000 mg tablet 1,000 mg PO BID buspirone 7.5 mg tablet 10 mg PO TID furosemide 20 mg tablet 20 mg PO DAILY albuterol sulfate 90 mcg/actuation HFA aerosol inhaler See Rx Instructions .ROUTE .COMPLEX PRN (Reason: sob) Rx Instructions: 1-2 puffs Q8 PRN For SOB ondansetron 4 mg tablet,disintegrating 4 mg PO Q8H PRN (Reason: Nausea And Vomiting) glipizide 5 mg tablet 2.5 mg PO BID escitalopram oxalate 20 mg tablet 20 mg PO DAILY naloxone 4 mg/actuation spray,non-aerosol See Rx Instructions .ROUTE .COMPLEX Rx Instructions: 1 spray intranasally, use as directed for opioid overdose. Milk of Magnesia 30 ml PO DAILY PRN (Reason: Constipation) acetaminophen 650 mg PO Q6H PRN (Reason: Fever Or Pain) krill rwh-udble-9-dha-epa 1 cap PO HS senna 8.6 mg PO BID PRN (Reason: Constipation) hydrocodone-acetaminophen 7.5-325 mg Tablet 1 tablet PO TID Qty: 30 0RF aspirin 81 mg Tablet,Delayed Release (Dr/Ec) 81 mg PO QAM Qty: 30 0RF cyanocobalamin (vitamin B-12) [Vitamin B-12] 1,000 mcg Tablet 1,000 mcg PO QAM Qty: 30 0RF magnesium oxide 400 mg (241.3 mg magnesium) Tablet 400 mg PO DAILY Qty: 30 0RF potassium chloride [K-Tab] 20 mEq Tablet Extended Release 20 meq PO DAILY Qty: 30 0RF guaifenesin [Mucus Relief ER] 600 mg Tablet Extended Release 12hr 1,200 mg PO Q12HR Qty: 20 0RF doxycycline hyclate 100 mg Tablet 100 mg PO Q12HR Qty: 7 0RF amoxicillin-pot clavulanate 875-125 mg tablet 1 tablet PO Q12H Qty: 7 0RF Follow-up/Referrals: UNKNOWN,DOCTOR [Primary Care Provider]
[2025-04-14 00:08] LABS: Troponin I < 0.012 ng/mL (0.000-0.034)
[2025-04-14] MEDS: KETOROLAC 15 MG/ML VIAL (*BKC) IV PUSH (03:41)
--- NOTE | 2025-04-14 03:46 | PC.NURSE ---
Jessica RN walked into pts room to give pain medication. pt took IV out stating No one was paying attention to me. Pt also refusing vital signs
--- NOTE | 2025-04-14 05:28 | PC.NURSE ---
report called to Zeny. pt changed into a new depends before leaving
[2025-04-14 07:03] VITALS: BP 145/73; PULSE 62; RESP 20; O2SAT 94
== END 2025-04-14 07:06 ==
PROVIDERS: Emergency Provider Emergency Medicine
DX: J18.9 Pneumonia, unspecified organism (principal); R53.81 Other malaise; I10 Essential (primary) hypertension; I25.10 Atherosclerotic heart disease of native coronary artery without angina pectoris; J44.9 Chronic obstructive pulmonary disease, unspecified; G25.81 Restless legs syndrome; E53.8 Deficiency of other specified B group vitamins; E03.9 Hypothyroidism, unspecified; M79.7 Fibromyalgia; F41.8 Other specified anxiety disorders; Z74.01 Bed confinement status; Z87.442 Personal history of urinary calculi; Z87.891 Personal history of nicotine dependence; Z90.710 Acquired absence of both cervix and uterus; Z90.49 Acquired absence of other specified parts of digestive tract; Z79.84 Long term (current) use of oral hypoglycemic drugs; Z79.899 Other long term (current) drug therapy; Z79.82 Long term (current) use of aspirin
CPT/HCPCS: 36415; 70450; 71045; 71275; 74177; 80053; 83690; 83880; 84484; 85025; 85610; 85730; 93005; 96374; 99284; J1885; Q9967